=== PATIENT | female | born 1960 | race American Indian/Alaskan Native ===

== ENCOUNTER 2017-12-04 09:50 | Outpatient (CLI) | payer MEDICARE ==
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
== END 2017-12-04 09:51 | disposition home or self-care (01) ==
LOC: XRAY 09:50
PROVIDERS: ATTEND Family Medicine
DX: M17.11 Unilateral primary osteoarthritis, right knee (principal); M16.11 Unilateral primary osteoarthritis, right hip; V43.92XA Unspecified car occupant injured in collision with other type car in traffic accident, initial encounter; Y93.89 Activity, other specified; Y92.89 Other specified places as the place of occurrence of the external cause; Y99.8 Other external cause status

== ENCOUNTER 2020-08-21 19:41 | Emergency (ER) | payer MEDICARE ==
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
[2020-08-21 21:03] LABS: Hematocrit 40.2 % (30.3-42.9); Hemoglobin 13.6 gm/dl (10.1-14.3); Mean Corpuscular HGB Conc 34 % (30-34); Mean Corpuscular Volume 93 fl (79-97); Platelet Count 223 K/mm3 (140-440); Red Cell Distribution Width 16.5 % (13.2-15.2)
[2020-08-21 21:19] LABS: INR 1.2 (0.87-1.13); Partial Thromboplastin Time 35.5 Sec. (24.2-36.6)
[2020-08-21 21:23] LABS: Albumin 3.8 g/dL (3.9-5); Calcium 9.3 mg/dL (8.4-10.2)
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
--- NOTE | 2020-08-21 21:43 | XRay Report ---
CHEST 1 VIEW 08/21/2020 9:02 PM INDICATION / CLINICAL INFORMATION: sepsis. COMPARISON: Chest 2 views from 03/19/2016. FINDINGS: SUPPORT DEVICES: None. HEART / MEDIASTINUM: No significant abnormality. LUNGS / PLEURA: Low lung volumes with elevation of the right hemidiaphragm and bibasilar opacities. N o significant pleural effusion. No pneumothorax. ADDITIONAL FINDINGS: No significant additional findings. IMPRESSION: Low lung volumes with probable bibasilar atelectasis. Signer Name: Deondre Luis MD Signed: 08/21/2020 9:38 PM Workstation Name: [id number]
[2020-08-21 21:45] LABS: RBC Morphology Normal; Total Cells Counted 100
[2020-08-21] MEDS ORDERED: ONDANSETRON 4 MG ODT TAB PO ONE (22:37)
[2020-08-21] MEDS ORDERED: oxyCODONE /ACETAMINOPHEN 5-325MG TAB PO ONE (22:37)
[2020-08-21] MEDS ORDERED: IBUPROFEN 800 MG TAB PO ONE (23:15)
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
--- NOTE | 2020-08-21 23:26 | Cat Scan Report ---
CT head/brain wo con INDICATION: pain s/p fall. TECHNIQUE: All CT scans at this location are performed using the following dose modulation technique: Automated exposure control. CONTRAST: None. COMPARISON: None available. FINDINGS: The ventricular system is appropriate in size and configuration without midline shift. Nega tive for mass, stroke or hemorrhage. Image bones and paranasal sinuses are unremarkable. IMPRESSION: Negative CT brain without contrast. Signer Name: Bjorn Tee MD Signed: 08/21/2020 11:21 PM Workstation Name: [id number]
--- NOTE | 2020-08-21 23:48 | Cat Scan Report ---
CT neck w con HISTORY: left neck swelling COMPARISON: None. TECHNIQUE: CT of the neck is performed. All CT scans at this location are performed using CT dose red uction for ALARA by means of automated exposure control. FINDINGS: Contrast was administered, however there was extravasation and the patient did not to repeat contrast administration. Skull Base: No significant abnormality. Nasopharynx, oropharynx, hypopharynx: No significant abnormality. No mass identified.. Tonsils: Tonsils appear within normal limits. Airway: Patent and without significant abnormality. Salivary glands: Significant stranding seen within the neck which involves appears centered on the le ft parotid gland Significant stranding in the surrounding fat tissues which extends cranially along t he left temporal scalp and caudally beneath the platysma muscle. No stone is seen within the parotid duct. No organized fluid collection. Enlargement of the left sternocleidomastoid muscle and masseter due to underlying myositis. Thyroid:No significant abnormality. Lymphatics: Left level 2 and level 3 lymphadenopathy measuring up to 1.6 cm in short dimension Vasculature: Retroesophageal course of the subsequent internal carotid arteries. Osseous Structures: Multilevel moderate spondylosis. Additional findings: Patient is missing numerous T is no evidence for dental abscess. Mucosal retenti on cyst in the right maxillary sinus.. IMPRESSION: 1. Extensive inflammation involving the left neck which appears centered to the left parotid gland wh ich is thought to be most likely related to sialoadenitis. However, there is significant surrounding inflammation extending in the left scalp and inferiorly along the left aspect of the neck with left s ternocleidomastoid and masseter myositis. No abscess. No parotid duct stone is present. Correlate cli nically. 2. Associated level 2 and level 3 lymphadenopathy which is likely reactive. Recommend repeat CT scan with contrast if patient is not improving with medical therapy. Signer Name: Elbert Velazquez MD Signed: 08/21/2020 11:44 PM Workstation Name: [id number]
[2020-08-22] MEDS ORDERED: AMOXICILLIN/K CLAV 875/125MG TAB PO ONE (00:08)
[2020-08-22 01:19] VITALS: BP 169/102
== END 2020-08-22 01:20 | disposition home or self-care (01) ==
LOC: ED 19:41
DX: S70.02XA Contusion of left hip, initial encounter (principal); H60.92 Unspecified otitis externa, left ear; K11.21 Acute sialoadenitis; I16.0 Hypertensive urgency; Z90.49 Acquired absence of other specified parts of digestive tract; Z98.890 Other specified postprocedural states; Z79.1 Long term (current) use of non-steroidal anti-inflammatories (NSAID); Z79.2 Long term (current) use of antibiotics; Z79.899 Other long term (current) drug therapy; Z88.8 Allergy status to other drugs, medicaments and biological substances; W06.XXXA Fall from bed, initial encounter; Y93.89 Activity, other specified; Y92.89 Other specified places as the place of occurrence of the external cause; Y99.8 Other external cause status
CPT/HCPCS: 36415; 70450; 70491; 71045; 73502; 80053; 82140; 84484; 85007; 85025; 85610; 85730; 87040; 93005; 99285; Q9967; Q0162

== ENCOUNTER 2021-02-01 15:48 | Observation (INO) | payer MEDICARE ==
--- NOTE | 2021-02-01 18:49 | Event Note ---
ED Screening Note ED Screening Note: pt presents for fall that occurred earlier today she is c/o left hip pain she states her leg gave out but reports this occurs frequently she states that she is being evaluated for MS vs polyneuropathy she states she has also had BLE edema right greater than left for three days This initial assessment/diagnostic orders/clinical plan/treatment(s) is/are subject to change based on patients health status, clinical progression and re- assessment by fellow clinical providers in the ED. Further treatment and workup at subsequent clinical providers discretion. Patient/guardian urged not to elope from the ED as their condition may be serious if not clinically assessed and managed. Initial orders include: labs, xr, us
[2021-02-01 19:33] LABS: Basophils # (Auto) 0.1 K/mm3 (0.0-0.1); Basophils % (Auto) 0.5 % (0.0-1.8); Eosinophils # (Auto) 0.3 K/mm3 (0.0-0.4); Eosinophils % (Auto) 3.1 % (0.0-4.3); Hemoglobin 12.7 gm/dl (10.1-14.3); Lymphocytes # (Auto) 2.8 K/mm3 (1.2-5.4); Lymphocytes % (Auto) 25.1 % (13.4-35.0); Mean Corpuscular HGB Conc 33 % (30-34); Mean Corpuscular Volume 95 fl (79-97); Monocytes # (Auto) 0.9 K/mm3 (0.0-0.8); Monocytes % (Auto) 8.5 % (0.0-7.3); Platelet Count 251 K/mm3 (140-440); Red Blood Count 4.12 M/mm3 (3.65-5.03); Red Cell Distribution Width 15.4 % (13.2-15.2)
[2021-02-01 19:48] LABS: Albumin 3.4 g/dL (3.9-5); Calcium 9.6 mg/dL (8.4-10.2)
[2021-02-01 19:52] LABS: INR 1.13 (0.87-1.13)
--- NOTE | 2021-02-01 21:14 | Vascular Lab Report ---
DUPLEX DOPPLER LOWER EXTREMITY VEINS, BILATERAL INDICATION / CLINICAL INFORMATION: BLE edema, right greater than left TECHNIQUE: Duplex doppler imaging was performed through the veins of both lower extremities using neva ous compression and other maneuvers. COMPARISON: None available. FINDINGS: RIGHT COMMON FEMORAL VEIN: Negative. RIGHT FEMORAL VEIN: Negative. RIGHT POPLITEAL VEIN: Negative. RIGHT CALF VEINS: Negative. LEFT COMMON FEMORAL VEIN: Negative. LEFT FEMORAL VEIN: Negative. LEFT POPLITEAL VEIN: Negative. LEFT CALF VEINS: Negative. ADDITIONAL FINDINGS: None. IMPRESSION: No sonographic evidence for DVT in either lower extremity. Signer Name: Yasmani Dillon MD Signed: 02/01/2021 9:09 PM Workstation Name: [id number]
--- NOTE | 2021-02-01 21:45 | XRay Report ---
LEFT HIP 3 VIEW(S) INDICATION / CLINICAL INFORMATION: fall, left hip pain COMPARISON: None available. FINDINGS: BONES / JOINT(S): No acute fracture or subluxation. There is mild degeneration of the bilateral femor al acetabular joints. SOFT TISSUES: No significant abnormality. ADDITIONAL FINDINGS: Tubal ligation clips are noted within the pelvis. Signer Name: Raheem Cortez DO Signed: 02/01/2021 9:41 PM Workstation Name: [id number]
[2021-02-01] MEDS ORDERED: ONDANSETRON 4 MG/2 ML INJ IV ONE (21:47)
[2021-02-01] MEDS ORDERED: MORPHINE 4 MG/1 ML INJ IV ONE (21:47)
--- NOTE | 2021-02-01 21:51 | Emergency Department Report ---
ED General Adult HPI - General Chief complaint: Extremity Injury, Lower Stated complaint: L HIP PAIN Time Seen by Provider: 02/01/21 18:46 Source: patient Mode of arrival: Wheelchair Limitations: No Limitations - History of Present Illness Initial comments: 60-year-old female patient with history of hypertension, multiple sclerosis, and peripheral neuropathy presents to the emergency department with complaints of generalized weakness and left hip pain. Patient states she uses a walker at baseline and fell approximately 5 days ago while she was trying to use the bathroom. Patient states her right leg gave out on her, causing her to fall. Patient estimates she has fallen approximately 6 times in the last 30 days. States she is unable to bear weight on her left side. Patient is unable to discern whether she is having difficulty bearing weight because of the pain or because she is weak. Additionally, patient's lower extremities have been sw elling for the last week, and she has been experiencing diarrhea for approximately one month. Patient's primary care provider sent her to the emergency department for further evaluation. No known history of heart problems or kidney problems. No new medications. Denies headache, neck pain, syncope, seizure, chest pain, shortness of breath. Denies all other complaints at this time. - Related Data Previous Rx's Medication Instructions Recorded Last Taken Type Amoxicillin/Potassium Clav 1 each PO BID 10 Days #20 tablet 08/22/20 Unknown Rx [Augmentin 875-125 Tablet] Ciprofloxacin HCl/Dexameth 3 drop BID 7 Days #7.5 ml 08/22/20 Unknown Rx [Ciprodex Otic Suspension] Ibuprofen [Motrin 400 MG tab] 400 mg PO TID 5 Days #15 tablet 08/22/20 Unknown Rx oxyCODONE /ACETAMINOPHEN [Percocet 1 tab PO Q6H PRN #15 tab 08/22/20 Unknown Rx 5/325] Allergies Allergy/AdvReac Type Severity Reaction Status Date / Time hydrochlorothiazide Allergy Anaphylaxis Verified 02/01/21 16:55 ED Review of Systems ROS: Stated complaint: L HIP PAIN Other details as noted in HPI Other: GENERAL: Negative for fever, chills, weight change, anorexia, fatigue. ENT: Negative for ear pain, difficulty hearing, sore throat, nasal congestion, epistaxis. CARDIOVASCULAR: Positive for lower extremity swelling PULMONARY: Negative for cough, dyspnea, wheezing, orthopnea, cyanosis. GASTROINTESTINAL: Negative for abdominal pain, nausea, vomiting, diarrhea, constipation. MUSCULOSKELETAL: Positive for left hip pain. NEUROLOGICAL: Positive for generalized weakness. INTEGUMENTARY: Negative for erythema, rash, diaphoresis, laceration, ecchymosis. HEMATOLOGICAL: Negative for hemoptysis, hematemesis, hematochezia, hematuria. PSYCHIATRIC: Negative for hallucinations, suicidal ideation, homicidal ideation, anxiety, depression. ED Past Medical Hx - Past Medical History Hx Hypertension: Yes Additional medical history: Esophageal diverticulum. neuropathy and MS. 2L O2 at night - Surgical History Hx Cholecystectomy: Yes Additional Surgical History: esopagal dilation x5. hysterectomy. right knee. incarerated hernia - Social History Smoking Status: Never Smoker Substance Use Type: None - Medications Home Medications: Home Medications Medication Instructions Recorded Confirmed Last Taken Type Amoxicillin/Potassium Clav 1 each PO BID 10 Days #20 tablet 08/22/20 Unknown Rx [Augmentin 875-125 Tablet] Ciprofloxacin HCl/Dexameth 3 drop BID 7 Days #7.5 ml 08/22/20 Unknown Rx [Ciprodex Otic Suspension] Ibuprofen [Motrin 400 MG tab] 400 mg PO TID 5 Days #15 tablet 08/22/20 Unknown Rx oxyCODONE /ACETAMINOPHEN [Percocet 1 tab PO Q6H PRN #15 tab 08/22/20 Unknown Rx 5/325] ED Physical Exam - General Limitations: No Limitations - Other Other exam information: General: Awake and alert. No acute distress. Head: Atraumatic, normocephalic. Eyes: EOMI. Pupils are equal and round, reactive to light, no nystagmus. Normal sclera and conjunctiva. ENT: Oral mucosa is moist. Normal pharyngeal exam. Neck: Supple. No lymphadenopathy. Pulmonary: No respiratory distress. Clear to auscultation bilaterally. Cardiac: Regular rate and rhythm. Pulses are palpable and equal bilaterally. Bilateral nonpitting lower extremity edema. Skin: Warm and dry. No rashes. Abdomen: Soft, non-tender, non-protuberant. No guarding, rigidity, or rebound. Bowel sounds are normal. No organomegaly or masses noted. Back: Normal alignment. No CVA tenderness. Extremities: Tenderness to palpation throughout the left hip without obvious deformity or dislocation. Painful range of motion. No rotational shortening/deformity or leg length discrepancy. Neurological: Alert and oriented, appropriately interactive, no focal deficits. Strength and sensation intact throughout. Psych: Cooperative. Appropriate mood and affect. Speech is evenly metered. Thoughts are logically construed. ED Course Vital Signs 02/01/21 17:03 Temperature 99.2 F Pulse Rate 97 H Respiratory 16 Rate Blood Pressure 154/88 [Right] O2 Sat by Pulse 89 Oximetry ED Medical Decision Making - Lab Data Result diagrams: 02/01/21 19:06 02/01/21 19:06 - EKG Data 02/01/21 22:30 EKG shows sinus tachycardia with a ventricular rate of 104 bpm. Left axis deviation. Normal SC interval. Normal QT interval. Poor R wave progression. No ST segment changes. Unchanged as compared with prior tracing in August 2020. Over read by attending emergency physician, who agrees with this interpretation. 02/01/21 22:32 - Medical Decision Making Differential diagnosis including but not limited to: sprain, strain, fracture, contusion, dislocation, dehydration, electrolyte abnormality, congestive heart failure, cardiac arrhythmia, pulmonary hypertension 23:20: On re-evaluation, patient remains stable. Urinalysis shows budding yeast; given one-time dose of Diflucan. Labs significant for acute kidney injury as compared with prior labs earlier this year. In the setting of mild tachycardia, hyponatremia, generalized weakness, and ongoing diarrhea, suspect patient's ROSSI is due to pre-renal causes. Given 500 mL IV fluids @ 150 per hour. Will monitor patient's response to fluids before administering remainder of fluid bolus due to patient's recent onset of peripheral edema. Chest x-ray is pending. EKG without acute injury pattern. BNP within normal limits. Patient will require hospital admission for management of her kidney/electrolytes and further evaluation of ongoing weakness/falls. 23:25: Paged hospitalist for admission. 23:39: Case discussed with hospitalist, who agrees to admit. Patient expressed understanding and is agreeable to plan of care. Critical care attestation.: If time is entered above; I have spent that time in minutes in the direct care of this critically ill patient, excluding procedure time. ED Disposition Clinical Impression: Acute kidney injury, Generalized weakness, Frequent falls, History of multiple sclerosis Disposition: ADMITTED INPATIENT Is pt being admited?: Yes Does the pt Need Aspirin: No Condition: Stable Time of Disposition: 23:39
[2021-02-01 23:12] LABS: Bacteria,Urine 2+ /HPF (Negative); Bilirubin,Urine NEG (Negative); Blood,Urine NEG (Negative); Color,Urine Yellow (Yellow); Mucus,Urine FEW /HPF; Urobilinogen,Urine < 2.0 mg/dL (<2.0)
[2021-02-01] MEDS ORDERED: FLUCONAZOLE 100 MG TAB PO ONE (23:24)
[2021-02-01] MEDS ORDERED: FLUCONAZOLE 200 MG TAB PO ONE (23:30)
[2021-02-01] MEDS ORDERED: SODIUM CHLORIDE 0.9% 1000 ML 1,000 ML IV SCH (23:45)
[2021-02-01] MEDS ORDERED: SODIUM CHLORIDE 0.9% 500 ML 500 ML IV SCH (23:45)
[2021-02-01] MEDS ORDERED: ACETAMINOPHEN 325 MG TAB PO PRN (23:56)
[2021-02-01] MEDS ORDERED: MAGNESIUM HYDROXIDE (MOM) ORAL LIQD UDC PO PRN (23:56)
[2021-02-01] MEDS ORDERED: ONDANSETRON 4 MG/2 ML INJ IV PRN (23:56)
[2021-02-01] MEDS ORDERED: MORPHINE 2 MG/1 ML INJ IV PRN (23:56)
[2021-02-01] MEDS ORDERED: MORPHINE 4 MG/1 ML INJ IV PRN (23:56)
--- NOTE | 2021-02-02 00:09 | History and Physical Report ---
History of Present Illness Date of examination: 02/01/21 Date of admission: 02/01/2021 Chief complaint: Diarrhea Generalized weakness Frequent falls History of present illness: 60-year-old female with known history of hypertension, peripheral neuropathy and multiple sclerosis presents to the emergency room today complaining of left hip pain and generalized weakness. Patient states that she fell about 5 days ago while she was trying to use the bathroom. She normally ambulates with a walker but indicates states that her right leg give out on her. She denies any head injury, denies any loss of consciousness. However patient indicates that she has been having frequent falls lately. Patient denies any fever or chills, no chest pain or shortness of breath, no nausea or vomiting and no abdominal pain. She has been having diarrhea for about a month but denies any bright red blood per rectum. She denies using any new medications. Her last intake of antibio tics was about 5 months ago. Work-up in the emergency room today reveals a BUN/creatinine of 47 and 2.1 respectively, sodium level of 133. Past History Past Medical History: hypertension, other (Esophageal diverticulum. neuropathy and MS. 2L O2 at night) Past Surgical History: Other ( esopagal dilation x5. hysterectomy. right knee. incarerated hernia) Social history: no significant social history Family history: no significant family history Medications and Allergies Allergies Allergy/AdvReac Type Severity Reaction Status Date / Time hydrochlorothiazide Allergy Anaphylaxis Verified 02/01/21 16:55 Home Medications Medication Instructions Recorded Confirmed Last Taken Type Amoxicillin/Potassium Clav 1 each PO BID 10 Days #20 tablet 08/22/20 Unknown Rx [Augmentin 875-125 Tablet] Ciprofloxacin HCl/Dexameth 3 drop BID 7 Days #7.5 ml 08/22/20 Unknown Rx [Ciprodex Otic Suspension] Ibuprofen [Motrin 400 MG tab] 400 mg PO TID 5 Days #15 tablet 08/22/20 Unknown Rx oxyCODONE /ACETAMINOPHEN [Percocet 1 tab PO Q6H PRN #15 tab 08/22/20 Unknown Rx 5/325] Active Meds: Active Medications Acetaminophen (Acetaminophen 325 Mg Tab) 650 mg PO Q4H PRN PRN Reason: Pain MILD(1-3)/Fever >100.5/ALEMAN Sodium Chloride (Nacl 0.9% 500 Ml) 500 mls @ 150 mls/hr IV DIRECT MARY Sodium Chloride (Nacl 0.9% 1000 Ml) 1,000 mls @ 75 mls/hr IV DIRECT MARY Magnesium Hydroxide (Magnesium Hydroxide (Mom) Oral Liqd Udc) 30 ml PO Q4H PRN PRN Reason: Constipation Morphine Sulfate (Morphine 2 Mg/1 Ml Inj) 2 mg IV Q4H PRN PRN Reason: Pain, Moderate (4-6) Morphine Sulfate (Morphine 4 Mg/1 Ml Inj) 4 mg IV Q4H PRN PRN Reason: Pain , Severe (7-10) Ondansetron HCl (Ondansetron 4 Mg/2 Ml Inj) 4 mg IV Q8H PRN PRN Reason: Nausea And Vomiting Sodium Chloride (Sodium Chloride 0.9% 10 Ml Flush Syringe) 10 ml IV BID MARY Sodium Chloride (Sodium Chloride 0.9% 10 Ml Flush Syringe) 10 ml IV PRN PRN PRN Reason: LINE FLUSH Review of Systems Constitutional: weakness, no fever, no chills Ears, nose, mouth and throat: no nasal congestion, no sore throat Cardiovascular: no chest pain, no palpitations Respiratory: no cough, no shortness of breath Gastrointestinal: abdominal pain (Mild abdominal discomfort), diarrhea, no nausea, no vomiting, no hematemesis Genitourinary Female: no pelvic pain, no flank pain, no dysuria, no hematuria Musculoskeletal: no neck pain, no low back pain Integumentary: no rash, no pruritis Neurological: weakness, balance difficulties, no seizures, no headaches, no confusion Psychiatric: no anxiety, no depression, no confusion Endocrine: no polyphagia, no polydipsia, no polyuria, no nocturia Exam - Constitutional Vitals: Temp Pulse Resp BP Pulse Ox 99.2 F 97 H 16 154/88 89 02/01/21 17:03 02/01/21 17:03 02/01/21 17:03 02/01/21 17:03 02/01/21 17:03 General appearance: Present: no acute distress, well-nourished, obese - EENT Eyes: Present: PERRL, EOM intact. Absent: scleral icterus ENT: hearing intact, clear oral mucosa, dentition normal - Neck Neck: Present: supple, normal ROM - Respiratory Respiratory effort: normal Respiratory: bilateral: CTA - Cardiovascular Rhythm: regular Heart Sounds: Present: S1 & S2. Absent: gallop, systolic murmur, diastolic murmur, rub - Extremities Extremities: no ischemia, pulses intact, pulses symmetrical, No edema, normal temperature, normal color, Full ROM Peripheral Pulses: within normal limits - Abdominal General gastrointestinal: Present: soft, non-tender, non-distended, normal bowel sounds. Absent: mass - Integumentary Integumentary: Present: clear, warm, dry. Absent: rash - Musculoskeletal Musculoskeletal: strength equal bilaterally - Psychiatric Psychiatric: appropriate mood/affect, intact judgment & insight, memory intact, cooperative - Neurologic Neurologic: CNII-XII intact, no focal deficits, moves all extremities Results - Labs CBC & Chem 7: 02/02/21 06:39 02/01/21 19:06 Labs: Abnormal lab results 02/01/21 02/01/21 02/01/21 Range/Units 19:06 19:06 19:06 RDW 15.4 H (13.2-15.2) % [place] % (Auto) 8.5 H (0.0-7.3) % [place] # (Auto) 0.9 H (0.0-0.8) K/mm3 PT 15.1 H (12.2-14.9) Sec. Sodium 133 L (137-145) mmol/L Chloride 97.3 L (98-107) mmol/L BUN 47 H (7-17) mg/dL Creatinine 2.1 H (0.6-1.2) mg/dL AST 71 H (5-40) units/L Total Protein 8.3 H (6.3-8.2) g/dL Albumin 3.4 L (3.9-5) g/dL Assessment and Plan - Patient Problems (1) Acute kidney injury Current Visit: Yes Status: Acute Plan to address problem: Possibly secondary to volume loss for the diarrhea. Patient commenced on IV fluid. We will monitor BUN and creatinine. Consult placed to barrel maker for evaluation. (2) Frequent falls Current Visit: Yes Status: Acute Plan to address problem: Patient has known history of multiple sclerosis and peripheral neuropathy. Patient will be placed on fall precautions. (3) Generalized weakness Current Visit: Yes Status: Acute Plan to address problem: Etiology is unclear. Possibly secondary to the diarrhea. (4) History of multiple sclerosis Current Visit: Yes Status: Acute Plan to address problem: Continue on routine medications and place consult to neurology for further evaluation and recommendation. (5) DVT prophylaxis Current Visit: Yes Status: Acute Plan to address problem: Patient placed on subcutaneous heparin. (6) Full code status Current Visit: Yes Status: Acute Plan to address problem: Patient is full code.
--- NOTE | 2021-02-02 00:15 | XRay Report ---
CHEST 1 VIEW 02/01/2021 10:57 PM INDICATION / CLINICAL INFORMATION: tachycardia/lower extremity swelling. COMPARISON: 08/21/2020 FINDINGS: SUPPORT DEVICES: None. HEART / MEDIASTINUM: No significant abnormality. LUNGS / PLEURA: Marked chronic elevation right hemidiaphragm. No significant pulmonary or pleural abn ormality. No pneumothorax. ADDITIONAL FINDINGS: No significant additional findings. IMPRESSION: 1. No acute findings. Signer Name: Ladarius Peoples MD Signed: 02/02/2021 12:11 AM Workstation Name: [id number]
[2021-02-02 07:03] LABS: Basophils # (Auto) 0.1 K/mm3 (0.0-0.1); Basophils % (Auto) 0.6 % (0.0-1.8); Eosinophils # (Auto) 0.4 K/mm3 (0.0-0.4); Eosinophils % (Auto) 4.8 % (0.0-4.3); Hematocrit 34.9 % (30.3-42.9); Hemoglobin 11.6 gm/dl (10.1-14.3); Lymphocytes # (Auto) 1.8 K/mm3 (1.2-5.4); Lymphocytes % (Auto) 19.4 % (13.4-35.0); Mean Corpuscular HGB Conc 33 % (30-34); Mean Corpuscular Volume 93 fl (79-97); Monocytes # (Auto) 0.9 K/mm3 (0.0-0.8); Monocytes % (Auto) 10.1 % (0.0-7.3); Platelet Count 265 K/mm3 (140-440); Red Blood Count 3.76 M/mm3 (3.65-5.03); Red Cell Distribution Width 15.2 % (13.2-15.2)
[2021-02-02 07:13] LABS: INR 1.1 (0.87-1.13)
[2021-02-02 07:27] LABS: Calcium 9.3 mg/dL (8.4-10.2)
--- NOTE | 2021-02-02 09:03 | Consultation ---
History of Present Illness Consult date: 02/02/21 Reason for Consult: Gaeneralized weakness ,increase fall and right leg weakness ,Hx of MS History of present illness: Diarrhea Generalized weakness Frequent falls History of present illness: 60-year-old female with known history of hypertension, peripheral neuropathy and multiple sclerosis presents to the emergency room today complaining of left hip pain and generalized weakness. Patient states that she fell about 5 days ago while she was trying to use the bathroom. She normally ambulates with a walker but indicates states that her right leg give out on her. She denies any head injury, denies any loss of consciousness. However patient indicates that she has been having frequent falls lately. Patient denies any fever or chills, no chest pain or shortness of breath, no nausea or vomiting and no abdominal pain. She has been having diarrhea for about a month but denies any bright red blood per rectum. She denies using any new medications. Her last intake of antibiotics was about 5 months ago. Work-up in the emergency room today reveals a BUN/creatinine of 47 and 2.1 respectively, sodium level of 133. pt. is complaining of left hip pain as well as back pain radiate to left hip . according to her pain started only 5 days ago after the fall she is with hx of MX presented in 2008 as muscles cramp in legs and visual disturbance ? according to her she is treated with muscles relaxant ?? Past History Past Medical History: hypertension, other (Esophageal diverticulum. neuropathy and MS. 2L O2 at night) Past Surgical History: Other ( esopagal dilation x5. hysterectomy. right knee. incarerated hernia) Social history: no significant social history Family history: no significant family history Medications and Allergies Allergies Allergy/AdvReac Type Severity Reaction Status Date / Time hydrochlorothiazide Allergy Anaphylaxis Verified 02/01/21 16:55 Home Medications Medication Instructions Recorded Confirmed Last Taken Type Amoxicillin/Potassium Clav 1 each PO BID 10 Days #20 tablet 08/22/20 Unknown Rx [Augmentin 875-125 Tablet] Ciprofloxacin HCl/Dexameth 3 drop BID 7 Days #7.5 ml 08/22/20 Unknown Rx [Ciprodex Otic Suspension] Ibuprofen [Motrin 400 MG tab] 400 mg PO TID 5 Days #15 tablet 08/22/20 Unknown Rx oxyCODONE /ACETAMINOPHEN [Percocet 1 tab PO Q6H PRN #15 tab 08/22/20 Unknown Rx 5325] Active Meds: Active Medications Acetaminophen (Acetaminophen 325 Mg Tab) 650 mg PO Q4H PRN PRN Reason: Pain MILD(1-3)/Fever >100.5/ALEMAN Sodium Chloride (Nacl 0.9% 500 Ml) 500 mls @ 150 mls/hr IV DIRECT MARY Sodium Chloride (Nacl 0.9% 1000 Ml) 1,000 mls @ 75 mls/hr IV DIRECT MARY Magnesium Hydroxide (Magnesium Hydroxide (Mom) Oral Liqd Udc) 30 ml PO Q4H PRN PRN Reason: Constipation Morphine Sulfate (Morphine 2 Mg/1 Ml Inj) 2 mg IV Q4H PRN PRN Reason: Pain, Moderate (4-6) Morphine Sulfate (Morphine 4 Mg/1 Ml Inj) 4 mg IV Q4H PRN PRN Reason: Pain , Severe (7-10) Ondansetron HCl (Ondansetron 4 Mg/2 Ml Inj) 4 mg IV Q8H PRN PRN Reason: Nausea And Vomiting Sodium Chloride (Sodium Chloride 0.9% 10 Ml Flush Syringe) 10 ml IV BID MARY Sodium Chloride (Sodium Chloride 0.9% 10 Ml Flush Syringe) 10 ml IV PRN PRN PRN Reason: LINE FLUSH Review of Systems Constitutional: weakness, no fever, no chills Ears, nose, mouth and throat: no nasal congestion, no sore throat Cardiovascular: no chest pain, no palpitations Respiratory: no cough, no shortness of breath Gastrointestinal: abdominal pain (Mild abdominal discomfort), diarrhea, no nausea, no vomiting, no hematemesis Genitourinary Female: no pelvic pain, no flank pain, no dysuria, no hematuria Musculoskeletal: no neck pain, no low back pain Integumentary: no rash, no pruritis Neurological: weakness, balance difficulties, no seizures, no headaches, no confusion Psychiatric: no anxiety, no depression, no confusion Endocrine: no polyphagia, no polydipsia, no polyuria, no nocturia Past History Past Medical History: hypertension, other (Esophageal diverticulum. neuropathy and MS. 2L O2 at night) Past Surgical History: Other ( esopagal dilation x5. hysterectomy. right knee. incarerated hernia) Social history: no significant social history Family history: no significant family history Medications and Allergies Allergies Allergy/AdvReac Type Severity Reaction Status Date / Time hydrochlorothiazide Allergy Anaphylaxis Verified 02/01/21 16:55 Home Medications Medication Instructions Recorded Confirmed Last Taken Type Amoxicillin/Potassium Clav 1 each PO BID 10 Days #20 tablet 08/22/20 Unknown Rx [Augmentin 875-125 Tablet] Ciprofloxacin HCl/Dexameth 3 drop BID 7 Days #7.5 ml 08/22/20 Unknown Rx [Ciprodex Otic Suspension] Ibuprofen [Motrin 400 MG tab] 400 mg PO TID 5 Days #15 tablet 08/22/20 Unknown Rx oxyCODONE /ACETAMINOPHEN [Percocet 1 tab PO Q6H PRN #15 tab 08/22/20 Unknown Rx 5/325] Active Meds: Active Medications Acetaminophen (Acetaminophen 325 Mg Tab) 650 mg PO Q4H PRN PRN Reason: Pain MILD(1-3)/Fever >100.5/ALEMAN Sodium Chloride (Nacl 0.9% 1000 Ml) 1,000 mls @ 75 mls/hr IV DIRECT MARY Magnesium Hydroxide (Magnesium Hydroxide (Mom) Oral Liqd Udc) 30 ml PO Q4H PRN PRN Reason: Constipation Morphine Sulfate (Morphine 2 Mg/1 Ml Inj) 2 mg IV Q4H PRN PRN Reason: Pain, Moderate (4-6) Last Admin: 02/02/21 02:56 Dose: 2 mg Documented by: Morphine Sulfate (Morphine 4 Mg/1 Ml Inj) 4 mg IV Q4H PRN PRN Reason: Pain , Severe (7-10) Ondansetron HCl (Ondansetron 4 Mg/2 Ml Inj) 4 mg IV Q8H PRN PRN Reason: Nausea And Vomiting Sodium Chloride (Sodium Chloride 0.9% 10 Ml Flush Syringe) 10 ml IV BID MARY Sodium Chloride (Sodium Chloride 0.9% 10 Ml Flush Syringe) 10 ml IV PRN PRN PRN Reason: LINE FLUSH Physical Examination - Vital Signs Vital Signs: Vital Signs Temp Pulse Resp BP Pulse Ox 99.2 F 97 H 16 154/88 89 02/01/21 17:03 02/01/21 17:03 02/01/21 17:03 02/01/21 17:03 02/01/21 17:03 - Constitutional General appearance: uncomfortable - EENT EENT: Present: PERRL, mucous membranes moist - Respiratory Respiratory: Present: chest non-tender, lungs clear, rhonchi - Cardiovascular Cardiovascular: Present: regular rate, normal S1, normal S2 Extremities: Present: non-pitting edema - Gastrointestinal Gastrointestinal: Present: normoactive bowel sounds - Integumentary Integumentary: Present: normal - Neurologic Cranial nerve examination: PERRL, EOMI, intact Speech examination: intact Sensorimotor examination: other (she is with left side weakness upper and lowe with strngth is 4-/5 , planter is down going , localized tenderness in both hip with slight limited movment ,sensory is impaired to pin and position in both feet and lag up to knees,gait is not done, reflexes are suppressed bilteral) Results - Laboratory Findings CBC and BMP: 02/02/21 06:39 02/02/21 06:39 Abnormal Lab Findings: Abnormal Labs 02/01/21 02/01/21 02/01/21 19:06 19:06 19:06 RDW 15.4 H [place] % (Auto) 8.5 H Eos % (Auto) [place] # (Auto) 0.9 H PT 15.1 H Sodium 133 L Potassium Chloride 97.3 L BUN 47 H Creatinine 2.1 H AST 71 H Total Protein 8.3 H Albumin 3.4 L 02/02/21 02/02/21 06:39 06:39 RDW [place] % (Auto) 10.1 H Eos % (Auto) 4.8 H [place] # (Auto) 0.9 H PT Sodium Potassium 5.3 H Chloride BUN 41 H Creatinine 1.7 H AST Total Protein Albumin Assessment and Plan Assessment and Plan # this is 60 ys old femal prsented with incres fall at home X 5 days -she is with localized tenderness in hip L>R -more pronounced weakness left >R side upper and lower -- no cranial nerves involvment --R/O cervical radiculopathy but supra tentorial etiology can not be excluded -Xry hips is unremarkable # Frequent falls -Patient has known history of multiple sclerosis and peripheral neuropathy. -Patient will be placed on fall precautions. -she use walker at home # Generalized weakness -Etiology is unclear. Possibly secondary to the diarrhea. # History of multiple sclerosis - Diagnosesd in 2008 on no medications ? -Continue on routine medications -suggest MRI brain and spine with gd ? # Acute kidney injury -Possibly secondary to volume loss for the diarrhea. -Patient commenced on IV fluid. We will monitor BUN and creatinine. # DVT prophylaxis -Patient placed on subcutaneous heparin. # Full code status -Patient is full code. PLAN 1- MRI brain ,Cervical ,dorsal and lumber with gd 2- Pt therapy 3- home medications 4-try to lose weight 5- ESR,JIMBO,B12,TSH . will follow
--- NOTE | 2021-02-02 09:59 | Consultation ---
History of Present Illness - Reason for Consult Consult date: 02/02/21 acute renal failure, hyperkalemia - History of Present Illness The patient is a 60 YO female with history significant for Obesity, Hypertension, peripheral neuropathy, multiple sclerosis, decreased mobility and mild CKD who presented to [facility] ED 02/01 with c/o left hip pain and generalized weakness. Patient states that she fell about 5 days ago while she was trying to use the bathroom. She normally ambulates with a walker but indicates states that her right leg give out on her. She denies any head injury or LOC. However patient indicates that she has been having frequent falls lately. Patient admits weight loss and diarrhea. She denies any fever, chills, chest pain, shortness of breath, nausea, vomiting and abdominal pain. Her last intake of antibiotics was about 5 months ago. Work-up in the emergency room revealed BUN/creatinine of 47 and 2.1 respectively and Sodium level of 133. Nephrology was consulted for further evaluation and treatment of ROSSI. Past History Past Medical History: hypertension, other (Esophageal diverticulum. neuropathy and MS. 2L O2 at night) Past Surgical History: Other ( esopagal dilation x5. hysterectomy. right knee. incarerated hernia) Social history: no significant social history Family history: no significant family history Medications and Allergies Allergies Allergy/AdvReac Type Severity Reaction Status Date / Time hydrochlorothiazide Allergy Anaphylaxis Verified 02/01/21 16:55 Home Medications Medication Instructions Recorded Confirmed Last Taken Type Amoxicillin/Potassium Clav 1 each PO BID 10 Days #20 tablet 08/22/20 Unknown Rx [Augmentin 875-125 Tablet] Ciprofloxacin HCl/Dexameth 3 drop BID 7 Days #7.5 ml 08/22/20 Unknown Rx [Ciprodex Otic Suspension] Ibuprofen [Motrin 400 MG tab] 400 mg PO TID 5 Days #15 tablet 08/22/20 Unknown Rx oxyCODONE /ACETAMINOPHEN [Percocet 1 tab PO Q6H PRN #15 tab 08/22/20 Unknown Rx 5/325] Active Meds: Active Medications Acetaminophen (Acetaminophen 325 Mg Tab) 650 mg PO Q4H PRN PRN Reason: Pain MILD(1-3)/Fever >100.5/ALEMAN Sodium Chloride (Nacl 0.9% 1000 Ml) 1,000 mls @ 75 mls/hr IV DIRECT MARY Magnesium Hydroxide (Magnesium Hydroxide (Mom) Oral Liqd Udc) 30 ml PO Q4H PRN PRN Reason: Constipation Morphine Sulfate (Morphine 2 Mg/1 Ml Inj) 2 mg IV Q4H PRN PRN Reason: Pain, Moderate (4-6) Last Admin: 02/02/21 02:56 Dose: 2 mg Documented by: Morphine Sulfate (Morphine 4 Mg/1 Ml Inj) 4 mg IV Q4H PRN PRN Reason: Pain , Severe (7-10) Ondansetron HCl (Ondansetron 4 Mg/2 Ml Inj) 4 mg IV Q8H PRN PRN Reason: Nausea And Vomiting Sodium Chloride (Sodium Chloride 0.9% 10 Ml Flush Syringe) 10 ml IV BID MARY Last Admin: 02/02/21 09:59 Dose: 10 ml Documented by: Sodium Chloride (Sodium Chloride 0.9% 10 Ml Flush Syringe) 10 ml IV PRN PRN PRN Reason: LINE FLUSH Review of Systems Constitutional: weight loss, anorexia, fatigue, poor appetite, no weight gain, no fever, no chills, no weakness Breasts: deferred Cardiovascular: edema, high blood pressure, leg edema, no chest pain, no orthopnea, no syncope, no lightheadedness, no shortness of breath Respiratory: no cough, no hemoptysis, no shortness of breath Gastrointestinal: diarrhea, no abdominal pain, no nausea, no vomiting, no melena Integumentary: no rash Neurological: no seizures, no syncope, no convulsions, no aphasia, no change in speech, no change in mentation, no confusion Exam - Vital Signs Vital signs: Vital Signs Temp Pulse Resp BP Pulse Ox 99.2 F 97 H 16 154/88 89 02/01/21 17:03 02/01/21 17:03 02/01/21 17:03 02/01/21 17:03 02/01/21 17:03 Results - Lab Results 02/02/21 06:39 02/02/21 06:39 Most recent lab results Calcium 9.3 mg/dL (8.4-10.2) 02/02/21 06:39 Assessment and Plan 1. Acute kidney injury: Vasomotor ROSSI in the setting of volume depletion. Urine studies and Renal US ordered. Continue IV fluids. Monitor renal function. Creatinine level is slightly better. Avoid nephrotoxic agents. Meds dosage based on GFR. 2. FEN: Mild Hyperkalemia, kayexalate ordered, monitor. Monitor lytes and volume status. 3. Frequent falls, POA: Patient has known history of multiple sclerosis and peripheral neuropathy. Fall precautions. 4. Generalized weakness: Etiology is unclear. Followed by Neuro. Monitor. 5. History of multiple sclerosis: Seen by Neurology. Subjective: Patient was examined at the bedside. Examination: General appearance: well-developed, appears stated age, obese HEENT: ATNC Neck: Trachea midline Respiratory: ctab Cardiology: S1S2, no murmur Gastrointestinal: soft, obese, bowel sounds heard, not tender Integumentary: no obvious rash Neurologic: AO, able to move extremities Ext: trace LE edema
[2021-02-02] MEDS ORDERED: SODIUM POLYSTYRENE 15 GM/60 ML ORAL LIQD PO NR (10:54)
[2021-02-02] MEDS ORDERED: LORazepam 2 MG/ML VIAL IV NR (14:45)
--- NOTE | 2021-02-02 14:46 | Progress Note ---
Assessment and Plan Assessment and plan: --Frequent falls Current Visit: Yes Status: Acute Plan to address problem: Patient has known history of multiple sclerosis and peripheral neuropathy. Patient will be placed on fall precautions. --Generalized weakness Current Visit: Yes Status: Acute Plan to address problem: Etiology is unclear. Possibly secondary to the diarrhea. --History of multiple sclerosis Current Visit: Yes Status: Acute Plan to address problem: Continue current medications neurology consulted Neuro work-up is in progress -- Acute kidney injury Current Visit: Yes Status: Acute Possibly secondary to volume loss from diarrhea/vasomotor nephropathy Patient commenced on IV fluid. We will monitor BUN and creatinine. Nephrology following, creatinine trending down Avoid nephrotoxins --Mild hyperkalemia; Current Visit: Yes Status: Acute No need to correct. Monitor electrolytes --DVT prophylaxis Current Visit: Yes Status: Acute Plan to address problem: Patient placed on subcutaneous heparin. -- Full code status Current Visit: Yes Status: Acute Plan to address problem: Patient is full code. Closely monitor the patient and adjust management as needed Plan of care reviewed with the patient and her nurse Follow neuro evaluation and recommendations Follow multiple neuro imaging studies and the reports 02/02/2021; Patient with multiple sclerosis, history of recurrent falls Neurology evaluated, extensive neuro work-up is in progress Physical therapy occupational therapy History Interval history: I have seen and examined the patient at the bedside Patient's chart and medications reviewed Patient with multiple sclerosis admitted with recurrent falls and hip pain Neurology evaluated the patient Neuro work-up is in progress Vital signs reviewed Hospitalist Physical - Constitutional Vitals: Temp Pulse Resp BP Pulse Ox 99.2 F 97 H 16 131/78 97 02/01/21 17:03 02/01/21 17:03 02/01/21 17:03 02/02/21 09:00 02/02/21 09:00 General appearance: Present: no acute distress, well-nourished, obese - EENT Eyes: Present: PERRL, EOM intact - Neck Neck: Present: supple, normal ROM - Respiratory Respiratory effort: normal Respiratory: bilateral: diminished, negative: rales, rhonchi, wheezing - Cardiovascular Rhythm: regular Heart Sounds: Present: S1 & S2 - Extremities Extremities: no ischemia, No edema - Abdominal General gastrointestinal: soft, non-tender, non-distended, normal bowel sounds - Integumentary Integumentary: Present: clear, warm - Psychiatric Psychiatric: appropriate mood/affect, cooperative - Neurologic Neurologic: moves all extremities (Residual weakness) Results - Labs CBC & Chem 7: 02/02/21 06:39 02/02/21 06:39 Labs: Laboratory Last Values WBC 9.3 K/mm3 (4.5-11.0) 02/02/21 06:39 RBC 3.76 M/mm3 (3.65-5.03) 02/02/21 06:39 Hgb 11.6 gm/dl (10.1-14.3) 02/02/21 06:39 Hct 34.9 % (30.3-42.9) 02/02/21 06:39 MCV 93 fl (79-97) 02/02/21 06:39 MCH 31 pg (28-32) 02/02/21 06:39 MCHC 33 % (30-34) 02/02/21 06:39 RDW 15.2 % (13.2-15.2) 02/02/21 06:39 Plt Count 265 K/mm3 (140-440) 02/02/21 06:39 Lymph % (Auto) 19.4 % (13.4-35.0) 02/02/21 06:39 [place] % (Auto) 10.1 % (0.0-7.3) H 02/02/21 06:39 Eos % (Auto) 4.8 % (0.0-4.3) H 02/02/21 06:39 Baso % (Auto) 0.6 % (0.0-1.8) 02/02/21 06:39 Lymph # (Auto) 1.8 K/mm3 (1.2-5.4) 02/02/21 06:39 [place] # (Auto) 0.9 K/mm3 (0.0-0.8) H 02/02/21 06:39 Eos # (Auto) 0.4 K/mm3 (0.0-0.4) 02/02/21 06:39 Baso # (Auto) 0.1 K/mm3 (0.0-0.1) 02/02/21 06:39 Seg Neutrophils % 65.1 % (40.0-70.0) 02/02/21 06:39 Seg Neutrophils # 6.1 K/mm3 (1.8-7.7) 02/02/21 06:39 PT 14.8 Sec. (12.2-14.9) 02/02/21 06:39 INR 1.10 (0.87-1.13) 02/02/21 06:39 APTT 32.0 Sec. (24.2-36.6) 02/01/21 19:06 Sodium 140 mmol/L (137-145) D 02/02/21 06:39 Potassium 5.3 mmol/L (3.6-5.0) H 02/02/21 06:39 Chloride 102.4 mmol/L (98-107) 02/02/21 06:39 Carbon Dioxide 27 mmol/L (22-30) 02/02/21 06:39 Anion Gap 16 mmol/L 02/02/21 06:39 BUN 41 mg/dL (7-17) H 02/02/21 06:39 Creatinine 1.7 mg/dL (0.6-1.2) H 02/02/21 06:39 Estimated GFR 37 ml/min 02/02/21 06:39 BUN/Creatinine Ratio 24 % 02/02/21 06:39 Glucose 94 mg/dL (65-100) 02/02/21 06:39 Calcium 9.3 mg/dL (8.4-10.2) 02/02/21 06:39 Total Bilirubin 0.50 mg/dL (0.1-1.2) 02/01/21 19:06 AST 71 units/L (5-40) H 02/01/21 19:06 ALT 42 units/L (7-56) 02/01/21 19:06 Alkaline Phosphatase 75 units/L (35-129) 02/01/21 19:06 NT-Pro-B Natriuret Pep 41.66 pg/mL (0-900) 02/01/21 19:06 Total Protein 8.3 g/dL (6.3-8.2) H 02/01/21 19:06 Albumin 3.4 g/dL (3.9-5) L 02/01/21 19:06 Albumin/Globulin Ratio 0.7 % 02/01/21 19:06 Urine Color Yellow (Yellow) 02/01/21 22:45 Urine Turbidity Cloudy (Clear) 02/01/21 22:45 Urine pH 5.0 (5.0-7.0) 02/01/21 22:45 Ur Specific [place] 1.016 (1.003-1.030) 02/01/21 22:45 Urine Protein 30 mg/dl mg/dL (Negative) 02/01/21 22:45 Urine Glucose (UA) Neg mg/dL (Negative) 02/01/21 22:45 Urine Ketones Neg mg/dL (Negative) 02/01/21 22:45 Urine Blood Neg (Negative) 02/01/21 22:45 Urine Nitrite Neg (Negative) 02/01/21 22:45 Urine Bilirubin Neg (Negative) 02/01/21 22:45 Urine Urobilinogen < 2.0 mg/dL (<2.0) 02/01/21 22:45 Ur Leukocyte Esterase Tr (Negative) 02/01/21 22:45 Urine WBC (Auto) 6.0 /HPF (0.0-6.0) 02/01/21 22:45 Urine RBC (Auto) 2.0 /HPF (0.0-6.0) 02/01/21 22:45 U Epithel Cells (Auto) 13.0 /HPF (0-13.0) 02/01/21 22:45 Urine Bacteria (Auto) 2+ /HPF (Negative) 02/01/21 22:45 Urine Mucus Few /HPF 02/01/21 22:45 Urine Yeast (Budding) 1+ /HPF 02/01/21 22:45 Active Medications - Current Medications Current Medications: Generic Name Dose Route Start Last Admin Trade Name Freq PRN Reason Stop Dose Admin Acetaminophen 650 mg 02/01/21 23:56 Acetaminophen 325 Mg Tab PO Q4H PRN Pain MILD(1-3)/Fever >100.5/ALEMAN Sodium Chloride 1,000 mls @ 75 mls/hr 02/01/21 23:45 Nacl 0.9% 1000 Ml IV DIRECT MARY Lorazepam 2 mg 02/02/21 14:45 Lorazepam 2 Mg/Ml Vial IV BILINGUAL ADMINISTRATIVE ASSISTANT NR Magnesium Hydroxide 30 ml 02/01/21 23:56 Magnesium Hydroxide (Mom) Oral Liqd Udc PO Q4H PRN Constipation Morphine Sulfate 2 mg 02/01/21 23:56 02/02/21 02:56 Morphine 2 Mg/1 Ml Inj IV 2 mg Q4H PRN Administration Pain, Moderate (4-6) Morphine Sulfate 4 mg 02/01/21 23:56 Morphine 4 Mg/1 Ml Inj IV Q4H PRN Pain , Severe (7-10) Ondansetron HCl 4 mg 02/01/21 23:56 02/02/21 13:58 Ondansetron 4 Mg/2 Ml Inj IV 4 mg Q8H PRN Administration Nausea And Vomiting Sodium Chloride 10 ml 02/02/21 10:00 02/02/21 09:59 Sodium Chloride 0.9% 10 Ml Flush Syringe IV 10 ml BID MARY Administration Sodium Chloride 10 ml 02/01/21 23:56 Sodium Chloride 0.9% 10 Ml Flush Syringe IV PRN PRN LINE FLUSH Sodium Polystyrene Sulfonate 30 gm 02/02/21 10:54 Sodium Polystyrene 15 Gm/60 Ml Oral Liqd PO 02/02/21 18:00 ONCE NR
--- NOTE | 2021-02-02 16:30 | Magnetic Resonance Report ---
MR cervical spine wo/w con INDICATION / CLINICAL INFORMATION: 60 years Female; cancer metastesis. TECHNIQUE: Multisequence, multiplanar images of the cervical spine were obtained. Motion artifact is present. COMPARISON: None available. FINDINGS: CRANIOCERVICAL JUNCTION:No significant abnormality. ALIGNMENT: Straightening of the cervical spine seen, which may be related to patient positioning. VERTEBRAE:Heterogeneous marrow seen which may be related to chronic anemia. Other marrow replacement processes cannot entirely be excluded. Modic type II endplate changes noted at multiple levels. Anterior spondylosis seen at multiple levels, presumably on a chronic degenerative basis. VISUALIZED SPINAL CORD: No significant abnormality. INTERVERTEBRAL DISCS: Desiccation narrowing seen at multiple levels. [id number] ANALYSIS: C2-3: Moderate foraminal narrowing on the right from uncinate hypertrophy and/or disc disease. Please correlate with right C3 nerve root symptomatology. C3-4: Mild disc bulge and small posterocentral disc protrusion. Moderate foraminal narrowing on the l eft from uncinate and facet hypertrophy. C4-5: Mild to moderate disc bulge. Moderate foraminal narrowing bilaterally from uncinate and facet h ypertrophy which might affect C5 nerves. Mild canal narrowing. No cord impingement. C5-6: Minimal disc bulge. Mild to moderate foraminal narrowing left from uncinate and facet hypertrop hy. Mild on the right. C6-7: Partial left hemilaminectomy noted. There is osseous hypertrophy on the left. Overall there is mild foraminal narrowing on the left and no significant canal stenosis. C7-T1: Moderate foraminal narrowing on the right from uncinate facet hypertrophy. Mild on the left. At T1-2 there is moderate osseous foraminal narrowing bilaterally from uncinate facet hypertrophy whi ch encroaches upon T1 nerves-right greater than left. Please clinically correlate. PARASPINAL SOFT TISSUES: No significant abnormality. ADDITIONAL FINDINGS: None. IMPRESSION: 1. Heterogeneous marrow as described above. 2. Multilevel degenerative changes seen. Findings at multiple levels could affect the exiting nerve r oots. Please correlate with dermatomal distribution of patient's symptoms, if present. Signer Name: Ben Merino MD, III Signed: 02/02/2021 4:25 PM Workstation Name: [id number]
--- NOTE | 2021-02-02 16:44 | Magnetic Resonance Report ---
MR brain wo/w con INDICATION / CLINICAL INFORMATION: 60 years Female; Seizure disorder. TECHNIQUE: Multiplanar, multisequence MR images of the brain were obtained. COMPARISON: None available. FINDINGS: BRAIN / INTRACRANIAL CONTENTS: Small pineal cyst suggested, which should be of no clinical significan ce. Otherwise, no acute hemorrhage, mass effect, midline shift, hydrocephalus, or acute, large territoria l infarct. No chronic infarct or atrophy. Hippocampal regions are grossly normal in appearance. There are minimal areas of increased signal intensity on FLAIR imaging in the white matter of the cer ebral hemispheres. These are nonspecific findings and may be related to microangiopathy (hypertension , diabetes, atherosclerosis), given the patient's age. Ossification is seen along the falx cerebri-of no clinical significance. I see no signs of abnormal enhancement following contrast administration. CRANIOCERVICAL JUNCTION: No significant abnormality. VASCULAR FLOW-VOIDS: No significant abnormality. ORBITS: No significant abnormality of visualized orbits. SINUSES / MASTOIDS: No significant abnormality in the visualized paranasal sinuses or mastoid air cecy ls. ADDITIONAL FINDINGS: None. IMPRESSION: 1. No focal intra-axial mass, hemorrhage, hydrocephalus, or acute ischemia seen. Signer Name: Ben Merino MD, III Signed: 02/02/2021 4:39 PM Workstation Name: [id number]
[2021-02-03] MEDS ORDERED: oxyCODONE /ACETAMINOPHEN 5-325MG TAB PO ONE (04:45)
[2021-02-03 06:52] LABS: Calcium 9.8 mg/dL (8.4-10.2)
[2021-02-03] MEDS ORDERED: LORazepam 2 MG/ML VIAL IV NR (09:15)
--- NOTE | 2021-02-03 09:52 | Electrocardiograph Report ---
[facility] Test Date: 2021-02-01 Test Time: 22:11:23 Pat Name: NILDA GRANT Department: Room: A474 Gender: F Color Coater: REEMA : 1960 Requested By: AC JOSEPH Order Number: [id number] Reading MD: James Pastor Measurements Intervals [place] Rate: 104 P: 40 ME: 175 QRS: -11 QRSD: 86 T: 48 QT: 335 QTc: 441 Interpretive Statements Sinus tachycardia Low voltage, precordial leads NSST'S. PRWP. No previous ECG available for comparison Electronically Signed On 02-03-2021 9:52:01 EDT by James Pastor
--- NOTE | 2021-02-03 10:04 | Progress Note ---
Assessment and Plan 1. Acute kidney injury: Vasomotor ROSSI in the setting of volume depletion. Urine studies and Renal US ordered. Continue IV fluids. Monitor renal function. Creatinine level is better. Avoid nephrotoxic agents. Meds dosage based on GFR. 2. FEN: Mild Hyperkalemia, improved. Monitor lytes and volume status. 3. Frequent falls, POA: Patient has known history of multiple sclerosis and peripheral neuropathy. Fall precautions. 4. Generalized weakness: Etiology is unclear. Seen by Neuro. MRI brain negative. 5. History of multiple sclerosis: Seen by Neurology. F/u in 1-2 weeks. Subjective: Patient was examined at the bedside. Examination: General appearance: well-developed, appears stated age, obese HEENT: ATNC Neck: Trachea midline Respiratory: ctab Cardiology: S1S2, no murmur Gastrointestinal: soft, obese, bowel sounds heard, not tender Integumentary: no obvious rash Neurologic: AO, able to move extremities Ext: trace LE edema Subjective Date of service: 02/03/21 Objective - Vital Signs Vital signs: Vital Signs - 12hr 02/02/21 02/02/21 02/02/21 22:15 22:31 22:45 Temperature Pulse Rate Respiratory Rate Blood Pressure 146/96 158/90 158/90 O2 Sat by Pulse 100 100 100 Oximetry 02/02/21 02/02/21 02/02/21 23:01 23:15 23:31 Temperature Pulse Rate Respiratory Rate Blood Pressure 145/87 145/87 146/92 O2 Sat by Pulse 100 97 96 Oximetry 02/02/21 02/03/21 02/03/21 23:45 00:01 00:15 Temperature Pulse Rate Respiratory Rate Blood Pressure 146/92 154/93 146/92 O2 Sat by Pulse 98 100 100 Oximetry 02/03/21 02/03/21 02/03/21 00:31 00:45 01:59 Temperature Pulse Rate Respiratory Rate Blood Pressure 147/85 147/85 148/90 O2 Sat by Pulse 100 100 98 Oximetry 02/03/21 02/03/21 02/03/21 02:01 03:10 05:54 Temperature 98.5 F Pulse Rate 100 H Respiratory 18 Rate Blood Pressure 148/90 151/100 O2 Sat by Pulse 97 92 98 Oximetry 02/03/21 08:28 Temperature 98.8 F Pulse Rate 107 H Respiratory 20 Rate Blood Pressure 153/69 O2 Sat by Pulse 91 Oximetry - Lab 02/02/21 06:39 02/03/21 05:51 Most recent lab results Calcium 9.8 mg/dL (8.4-10.2) 02/03/21 05:51 Magnesium 2.00 mg/dL (1.7-2.3) 02/03/21 05:51 Medications & Allergies - Medications Allergies/Adverse Reactions: Allergies hydrochlorothiazide Allergy (Verified 02/01/21 16:55) Anaphylaxis Home Medications: Home Medications Medication Instructions Recorded Confirmed Last Taken Type Ibuprofen [Motrin 400 MG tab] 400 mg PO TID 5 Days #15 tablet 08/22/20 02/03/21 01/29/21 Rx Baclofen 20 mg PO Q6H 02/03/21 02/03/21 01/29/21 History Gabapentin 300 mg PO Q6H #60 cap 02/03/21 Unknown Rx Losartan Potassium 100 mg PO QHS #30 02/03/21 Unknown Rx Metoprolol Xl [Metoprolol 25 mg PO QHS #30 02/03/21 Unknown Rx SUCCINATE ER TAB] NIFEdipine [Nifedipine ER] 30 mg PO QHS #30 02/03/21 Unknown Rx Pregabalin 50 mg PO BID #60 capsule 02/03/21 Unknown Rx Primidone [Mysoline] 50 mg PO Q6H #120 02/03/21 Unknown Rx Promethazine [Phenergan] 25 mg PO QID PRN #12 02/03/21 Unknown Rx Sertraline [Zoloft] 100 mg PO QDAY 30 Days #30 02/03/21 Unknown Rx oxyCODONE /ACETAMINOPHEN [Percocet 1 tab PO Q6H PRN #15 tab 02/03/21 Unknown Rx 5/325 mg] tiZANidine [Zanaflex 4mg TAB] 4 mg PO BID #30 02/03/21 Unknown Rx Active Medications: Generic Name Dose Route Start Last Admin Trade Name Freq PRN Reason Stop Dose Admin Acetaminophen 650 mg 02/01/21 23:56 Acetaminophen 325 Mg Tab PO Q4H PRN Pain MILD(1-3)/Fever >100.5/ALEMAN Sodium Chloride 1,000 mls @ 75 mls/hr 02/01/21 23:45 02/03/21 03:19 Nacl 0.9% 1000 Ml IV 75 mls/hr DIRECT MARY Administration Lorazepam 2 mg 02/02/21 14:45 Lorazepam 2 Mg/Ml Vial IV 02/03/21 14:44 MERCHANDISING PROFESSOR NR Lorazepam 2 mg 02/03/21 09:15 Lorazepam 2 Mg/Ml Vial IV MERCHANDISING PROFESSOR NR Magnesium Hydroxide 30 ml 02/01/21 23:56 Magnesium Hydroxide (Mom) Oral Liqd Udc PO Q4H PRN Constipation Morphine Sulfate 2 mg 02/01/21 23:56 02/02/21 02:56 Morphine 2 Mg/1 Ml Inj IV 2 mg Q4H PRN Administration Pain, Moderate (4-6) Morphine Sulfate 4 mg 02/01/21 23:56 02/02/21 22:13 Morphine 4 Mg/1 Ml Inj IV 4 mg Q4H PRN Administration Pain , Severe (7-10) Ondansetron HCl 4 mg 02/01/21 23:56 02/02/21 13:58 Ondansetron 4 Mg/2 Ml Inj IV 4 mg Q8H PRN Administration Nausea And Vomiting Sodium Chloride 10 ml 02/02/21 10:00 02/02/21 22:17 Sodium Chloride 0.9% 10 Ml Flush Syringe IV 10 ml BID MARY Administration Sodium Chloride 10 ml 02/01/21 23:56 Sodium Chloride 0.9% 10 Ml Flush Syringe IV PRN PRN LINE FLUSH
--- NOTE | 2021-02-03 10:39 | Progress Note ---
Assessment and Plan Assessment and Plan # this is 60 ys old femal presented with increas fall at home X 5 days -she is with localized tenderness in hip L>R more lumber region No limitation on hip ,Xry hip in unremarkable -more pronounced weakness left >R side upper and lower -- no cranial nerves involvment -MRI brain is unremarkable ---No sign to suggest MS. -Xry hips is unremarkable # Cervical disc disease with hx of old left hemilaminectomy -also noted cervical spinal stenosis at multiple level with no sign of MS nor Mylopathy or central disease -Add lyrica 75 mg bid -NO Morphine # Frequent falls -Patient has known history of multiple sclerosis and peripheral neuropathy. -Patient will be placed on fall precautions. -she use walker at home # Generalized weakness -Etiology is unclear. Possibly secondary to the diarrhea. # History of multiple sclerosis So far MRI Brain and cervical showed no sign of MS !!! -suggest MRI brain and spine with gd ? # Morbid obesity -possibly contribute and add to her gait problem and unsteadiness she use walker at home for ambulation # Acute kidney injury -Possibly secondary to volume loss for the diarrhea. -Patient commenced on IV fluid. We will monitor BUN and creatinine. # DVT prophylaxis -Patient placed on subcutaneous heparin. # Full code status -Patient is full code. 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 MRI brain is unremarkable no sign on MS no enhancing lesion , no CVA MRI Cervical showed degenerative disc disese with Hx of hemilaminectomy remote at C6-7 she is with multiple level cervical spinal stenosis peripheral , again no sign of MS is noted on C spine Xray hip is unremarkable with no arthritis no fracture Objective - Vital Sign Vital Signs - 12hr 02/02/21 02/02/21 02/02/21 22:45 23:01 23:15 Temperature Pulse Rate Respiratory Rate Blood Pressure 158/90 145/87 145/87 O2 Sat by Pulse 100 100 97 Oximetry 02/02/21 02/02/21 02/03/21 23:31 23:45 00:01 Temperature Pulse Rate Respiratory Rate Blood Pressure 146/92 146/92 154/93 O2 Sat by Pulse 96 98 100 Oximetry 02/03/21 02/03/21 02/03/21 00:15 00:31 00:45 Temperature Pulse Rate Respiratory Rate Blood Pressure 146/92 147/85 147/85 O2 Sat by Pulse 100 100 100 Oximetry 02/03/21 02/03/21 02/03/21 01:59 02:01 03:10 Temperature 98.5 F Pulse Rate 100 H Respiratory 18 Rate Blood Pressure 148/90 148/90 151/100 O2 Sat by Pulse 98 97 92 Oximetry 02/03/21 02/03/21 05:54 08:28 Temperature 98.8 F Pulse Rate 107 H Respiratory 20 Rate Blood Pressure 153/69 O2 Sat by Pulse 98 91 Oximetry - General Apperance Constitutional: comfortable - EENT EENT: PERRL, mucous membranes moist - Respiratory Respiratory: chest non-tender, lungs clear, rhonchi - Cardiovascular Cardiovascular: regular rate, normal S1, normal S2 Extremities: no peripheral edema bilat, no clubbing, cyanosis - Gastrointestinal Gastrointestinal: normoactive bowel sounds - Integumentary Integumentary: normal - Neurologic Cranial nerve examination: PERRL, EOMI, intact Speech examination: intact Detailed motor examination: other (diffuse weakness predominatly left leg with tender lumber spine , reflexes are suppressed , gait not done) - Laboratory Findings CBC and BMP: 02/02/21 06:39 02/03/21 05:51 Abnormal Lab Findings: Abnormal Labs 02/01/21 02/01/21 02/01/21 19:06 19:06 19:06 RDW 15.4 H Stevens % (Auto) 8.5 H Eos % (Auto) Stevens # (Auto) 0.9 H PT 15.1 H Sodium 133 L Potassium Chloride 97.3 L BUN 47 H Creatinine 2.1 H Glucose AST 71 H Total Protein 8.3 H Albumin 3.4 L 02/02/21 02/02/21 02/03/21 06:39 06:39 05:51 RDW Stevens % (Auto) 10.1 H Eos % (Auto) 4.8 H Stevens # (Auto) 0.9 H PT Sodium Potassium 5.3 H Chloride BUN 41 H 30 H Creatinine 1.7 H 1.3 H Glucose 126 H AST Total Protein Albumin
[2021-02-03] MEDS ORDERED: PREGABALIN 50 MG CAP PO SCH (11:00)
[2021-02-03 13:05] VITALS: BP 141/92
--- NOTE | 2021-02-03 15:04 | Ultrasound Report ---
ULTRASOUND RENAL INDICATION / CLINICAL INFORMATION: Acute renal failure.. COMPARISON: None available. FINDINGS: RIGHT KIDNEY: Length = 10.0 cm. - Echogenicity: Normal. - Cortical Thickness: Normal. - Hydronephrosis: None. - Cyst / Mass: None. - Stones: None seen. LEFT KIDNEY: Length = 10.8 cm. - Echogenicity: Normal. - Cortical Thickness: Normal. - Hydronephrosis: None. - Cyst / Mass: None. - Stones: None seen. URINARY BLADDER: No significant abnormality. FREE FLUID: None. ADDITIONAL FINDINGS: Mild diffuse increased echogenicity of the liver parenchyma compared to the righ t renal cortex. IMPRESSION: 1. No evidence of medical renal disease or hydronephrosis. 2. Mild diffuse fatty infiltration of the liver. Scribed by: Allie Banda RDMS, RVT Scribed: 02/03/2021 1:34 PM I have reviewed the images, agree with this report, and edited this report as needed. Signer Name: Armond Sharpe MD Signed: 02/03/2021 3:00 PM Workstation Name: [id number]
--- NOTE | 2021-02-03 15:54 | Discharge Summary ---
Providers - Providers Date of Admission: 02/01/21 23:57 Date of discharge: 02/03/21 Attending physician: GABO SALINAS 02/01/21 23:56 Consult to Physician [CONS] Routine Comment: Consulting Provider: ENEIDA NICOLE Physician Instructions: Reason For Exam: Generalized Weakness, H/O Multiple Sclerosis 02/02/21 06:57 Consult to Physician [CONS] Routine Comment: Consulting Provider: YSBIL PABLO Physician Instructions: Reason For Exam: ROSSI 02/03/21 04:32 Consult to PICC Line RN [CONS] Routine Reason For Exam: difficult stick Type Line:: Midline 02/03/21 09:56 Physical Therapy Evaluation and Treat [CONS] Urgent Comment: Reason For Exam: PT to eval and treat 02/03/21 09:57 Occupational Therapy Evaluate and Treat [CONS] Urgent Comment: Reason For Exam: OT to eval and treat Primary care physician: THIN FILM TECHNICIAN Hospitalization Condition: Stable Hospital course: 60-year-old female with known history of hypertension, peripheral neuropathy and multiple sclerosis presents to the emergency room today complaining of left hip pain and generalized weakness. Patient states that she fell about 5 days ago while she was trying to use the bathroom. She normally ambulates with a walker but indicates states that her right leg give out on her. She denies any head injury, denies any loss of consciousness. However patient indicates that she has been having frequent falls lately. Patient denies any fever or chills, no chest pain or shortness of breath, no nausea or vomiting and no abdominal pain. She has been having diarrhea for about a month but denies any bright red blood per rectum. She denies using any new medications. Her last intake of antibiotics was about 5 months ago. Work-up in the emergency room today reveals a BUN/creatinine of 47 and 2.1 respectively, sodium level of 133. 02/02/2021; Patient with multiple sclerosis, history of recurrent falls Neurology evaluated, extensive neuro work-up is in progress Physical therapy occupational therapy 02/03/2021 Patient able to walk to the bathroom with slight help Home health with PT arranged MRI was negative for any new stroke or any multiple sclerosis plaques. I doubt multiple sclerosis diagnosis in the past Patient is obese and needs weight reduction to walk better Patient to follow-up with bariatric surgery-Dr. Stallworth Patient counseled about weight and the effects of morbid obesity on her recurrent falls + Assessment and Plan Assessment and plan: --Frequent falls Current Visit: Yes Status: Acute Plan to address problem: Multiple falls secondary to obesity and unsteadiness. Next needs extensive physical therapy and strengthening of lower back and leg muscles Also needs to lose weight --Generalized weakness Current Visit: Yes Status: Acute Plan to address problem: Improved . --History of multiple sclerosis Current Visit: Yes Status: Acute Plan to address problem: .Patient has multiple sclerosis MRI did not show any blocks Patient carries a diagnosis of multiple sclerosis No confirmatory evidence -- Acute kidney injury Current Visit: Yes Status: Acute Nearly resolved Vasomotor nephropathy Creatinine 1.3 --Mild hyperkalemia; Current Visit: Yes Status: Acute Resolved --DVT prophylaxis Current Visit: Yes Status: Acute Plan to address problem: To walk more and prevent DVTs -- Full code status Current Visit: Yes Status: Acute Plan to address problem: Patient is full code. Neurology consult appreciated Disposition: HOME HEALTH CARE SERVICE Final Discharge Diagnosis (Prints w/discharge instructions): ROSSI. Multiple falls. Multiple sclerosis by history. Hyperkalemia. Morbid obesity - Discharge Diagnoses (1) Acute kidney injury Status: Acute (2) Frequent falls Status: Acute (3) Generalized weakness Status: Acute (4) History of multiple sclerosis Status: Acute (5) DVT prophylaxis Status: Acute Core Measure Documentation - Palliative Care Palliative Care/ Comfort Measures: Not Applicable - Core Measures Any of the following diagnoses?: none Exam - Constitutional Vitals: Temp Pulse Resp BP Pulse Ox 98.3 F 111 H 20 141/92 94 02/03/21 11:36 02/03/21 11:36 02/03/21 11:36 02/03/21 11:36 02/03/21 11:36 General appearance: Present: no acute distress, well-nourished - EENT Eyes: Present: PERRL ENT: hearing intact, clear oral mucosa - Neck Neck: Present: supple, normal ROM - Respiratory Respiratory effort: normal Respiratory: bilateral: CTA - Cardiovascular Heart rate: 78 Rhythm: regular Heart Sounds: Present: S1 & S2. Absent: rub, click - Extremities Extremities: pulses symmetrical, No edema Peripheral Pulses: within normal limits - Abdominal General gastrointestinal: Present: soft, non-tender, non-distended, normal bowel sounds Female genitourinary: Present: normal - Integumentary Integumentary: Present: clear, warm, dry - Musculoskeletal Musculoskeletal: gait normal, strength equal bilaterally - Psychiatric Psychiatric: appropriate mood/affect, intact judgment & insight - Neurologic Neurologic: CNII-XII intact, moves all extremities Plan Activity: no restrictions Weight Bearing Status: Weight Bear as Tolerated Diet: low fat, low cholesterol, low salt Durable Medical Equipment Needed Upon Discharge: Walker-Rolling Plan of Treatment: Home physical therapy Follow-up with bariatric surgery-Dr. Stallworth Follow up with: PRIMARY CAREMD [Primary Care Provider] - 3-5 Days DEMARCO STALLWORTH MD [Staff Physician] - 7 Days Prescriptions: Gabapentin 300 mg PO Q6H #60 cap Losartan Potassium 100 mg PO QHS #30 Metoprolol Xl [Metoprolol SUCCINATE ER TAB] 25 mg PO QHS #30 Primidone [Mysoline] 50 mg PO Q6H #120 NIFEdipine [Nifedipine ER] 30 mg PO QHS #30 oxyCODONE /ACETAMINOPHEN [Percocet 5/325 mg] 1 tab PO Q6H PRN #15 tab PRN Reason: Pain , Severe (7-10) Promethazine [Phenergan] 25 mg PO QID PRN #12 PRN Reason: Nausea Pregabalin 50 mg PO BID #60 capsule tiZANidine [Zanaflex 4mg TAB] 4 mg PO BID #30 Sertraline [Zoloft] 100 mg PO QDAY 30 Days #30
[2021-02-06 19:11] LABS: ANA Screen, IFA Negative (Negative)
== END 2021-02-03 16:30 | disposition home health service (06) ==
LOC: ED 15:48 → 3A 23:57 → 4A 02-02 23:28
PROVIDERS: ADMIT Internal Medicine Geriatric Medicine; ATTEND Internal Medicine
DX: N17.9 Acute kidney failure, unspecified (principal); I10 Essential (primary) hypertension; R53.1 Weakness; G35 Multiple sclerosis; E66.01 Morbid (severe) obesity due to excess calories; E87.5 Hyperkalemia; R29.6 Repeated falls; Z68.29 Body mass index [BMI] 29.0-29.9, adult; Z90.710 Acquired absence of both cervix and uterus; Z79.899 Other long term (current) drug therapy; Z98.890 Other specified postprocedural states; Z90.49 Acquired absence of other specified parts of digestive tract
CPT/HCPCS: 36415; 70553; 71045; 72156; 73502; 76770; 80048; 80053; 81001; 82607; 83735; 83880; 84443; 85025; 85610; 85730; 86038; 87086; 93005; 93970; 96361; 96374; 96375; 96376; 97161; 99285; A9575; G0378; J2270; J2405; J7030

== ENCOUNTER 2021-03-21 11:51 | Inpatient (IN) | payer MEDICARE ==
--- NOTE | 2021-03-21 12:37 | Emergency Department Report ---
<SHILPA JONES - Last Filed: 03/21/21 18:55> ED General Adult HPI - General Chief complaint: Extremity Problem,Nontraumatic Stated complaint: LEG WEAKNESS/PAIN Time Seen by Provider: 03/21/21 12:06 - Related Data Home Medications Medication Instructions Recorded Confirmed Last Taken Baclofen 20 mg PO Q6H 02/03/21 03/22/21 01/29/21 Acetaminophen with Codeine 1 each PO Q4HR 03/22/21 03/22/21 Unknown [Acetaminophen-Codeine #4 TAB] Gabapentin [Neurontin] 300 mg PO Q6HR 03/22/21 03/22/21 Unknown Metoprolol Xl [Metoprolol 25 mg PO QDAY 03/22/21 03/22/21 Unknown SUCCINATE ER TAB] NIFEdipine [Nifedipine ER] 30 mg PO DAILY 03/22/21 03/22/21 Unknown tiZANidine [Zanaflex 4mg TAB] 4 mg PO QPM 03/22/21 03/22/21 Unknown tiZANidine [Zanaflex 4mg TAB] 8 mg PO QHS 03/22/21 03/22/21 Unknown Previous Rx's Medication Instructions Recorded Last Taken Type Ibuprofen [Motrin 400 MG tab] 400 mg PO TID 5 Days #15 tablet 08/22/20 01/29/21 Rx Losartan Potassium 100 mg PO QHS #30 02/03/21 Unknown Rx Metoprolol Xl [Metoprolol 25 mg PO QHS #30 02/03/21 Unknown Rx SUCCINATE ER TAB] Pregabalin 50 mg PO BID #60 capsule 02/03/21 Unknown Rx Primidone [Mysoline] 50 mg PO Q6H #120 02/03/21 Unknown Rx Promethazine [Phenergan] 25 mg PO QID PRN #12 02/03/21 Unknown Rx Sertraline [Zoloft] 100 mg PO QDAY 30 Days #30 02/03/21 Unknown Rx oxyCODONE /ACETAMINOPHEN [Percocet 1 tab PO Q6H PRN #15 tab 02/03/21 Unknown Rx 5/325 mg] Allergies Allergy/AdvReac Type Severity Reaction Status Date / Time aspirin Allergy Anaphylaxis Verified 03/22/21 08:51 hydrochlorothiazide Allergy Anaphylaxis Verified 02/01/21 16:55 ED Past Medical Hx - Medications Home Medications: Home Medications Medication Instructions Recorded Confirmed Last Taken Type Ibuprofen [Motrin 400 MG tab] 400 mg PO TID 5 Days #15 tablet 08/22/20 03/22/21 01/29/21 Rx Baclofen 20 mg PO Q6H 02/03/21 03/22/21 01/29/21 History Losartan Potassium 100 mg PO QHS #30 02/03/21 03/22/21 Unknown Rx Metoprolol Xl [Metoprolol 25 mg PO QHS #30 02/03/21 03/22/21 Unknown Rx SUCCINATE ER TAB] Pregabalin 50 mg PO BID #60 capsule 02/03/21 03/22/21 Unknown Rx Primidone [Mysoline] 50 mg PO Q6H #120 02/03/21 03/22/21 Unknown Rx Promethazine [Phenergan] 25 mg PO QID PRN #12 02/03/21 03/22/21 Unknown Rx Sertraline [Zoloft] 100 mg PO QDAY 30 Days #30 02/03/21 03/22/21 Unknown Rx oxyCODONE /ACETAMINOPHEN [Percocet 1 tab PO Q6H PRN #15 tab 02/03/21 03/22/21 Unknown Rx 5/325 mg] Acetaminophen with Codeine 1 each PO Q4HR 03/22/21 03/22/21 Unknown History [Acetaminophen-Codeine #4 TAB] Gabapentin [Neurontin] 300 mg PO Q6HR 03/22/21 03/22/21 Unknown History Metoprolol Xl [Metoprolol 25 mg PO QDAY 03/22/21 03/22/21 Unknown History SUCCINATE ER TAB] NIFEdipine [Nifedipine ER] 30 mg PO DAILY 03/22/21 03/22/21 Unknown History tiZANidine [Zanaflex 4mg TAB] 4 mg PO QPM 03/22/21 03/22/21 Unknown History tiZANidine [Zanaflex 4mg TAB] 8 mg PO QHS 03/22/21 03/22/21 Unknown History ED Course - Reevaluation(s) Reevaluation #2: 03/21/21 18:55 Received sign-out from Dr Real to follow-up on MRI C/T/L spine results. MRI Lumbar Spine has resulted, however, cervical and thoracic still showing "ORDERED." Pt has returned from MRI. MRI report of Lumbar spine does NOT include cervical or thoracic reports. No one contacted me regarding pt needing additional medication for MRI. It is assumed that these 2 studies were not done. There is no note in the chart from assistant professor surgical technology. I called over to MRI and did not get an answer. Pt's nurse walked over to MRI area and states no one is there, appears to have gone home. Nurse states she was not told by assistant professor surgical technology that they were unable to do the other studies. I spoke with patient who states that she was unable to tolerate "the upper part of the exam, so they said that they would just do the lower part and try to do the rest tomorrow." Patient admitted to Dr Ramirez, hospitalist. ED Medical Decision Making - Lab Data Result diagrams: 03/21/21 15:02 03/21/21 15:02 ED Disposition Clinical Impression: Generalized weakness, Frequent falls, Paraparesis of both lower limbs, Obesity Disposition: ADMITTED INPATIENT Is pt being admited?: Yes Condition: Fair Time of Disposition: 19:23 <CARRINGTON REAL - Last Filed: 03/26/21 00:47> ED General Adult HPI - General PUI?: No Source: patient, EMS (Verbal report received from emergency medical services. EMS documentation not available at time of chart dictation ), RN notes reviewed, old records reviewed Mode of arrival: Stretcher Limitations: Physical Limitation - History of Present Illness Initial comments: The patient was evaluated in the emergency department for symptoms described in the history of present illness. He/she was evaluated in the context of the global COVID-19 pandemic, which necessitated consideration that the patient might be at risk for infection with the virus that causes COVID-19. Institutional protocols and algorithms that pertain to the evaluation of patients at risk for COVID-19 are in a state of rapid change based on information released by regulatory bodies including the CDC and federal and state organizations. These policies and algorithms were followed during the patient's care in the emergency department. Please note that these policies, procedures and recommendations changed on a rapid basis. Primary CARE doctor: Dr. Wayne Gold Past medical history: Hypertension, morbid obesity, peripheral neuropathy, multiple sclerosis, history of recurrent falls. Admitted to this hospital January 2021, had MRI brain and cervical spine negative for acute findings. Home health with physical therapy was arranged. The patient is brought to the hospital by emergency medical services today with a complaint of lower extremity weakness bilaterally, present for 2 weeks, worsened over the past 1 week. Patient reports that in the past she has required a walker for ambulatory assistance. She began to have increasing frequency of falls, so she reports her primary care doctor ordered a wheelchair for her 2 weeks ago. Approximately 1 week ago, she received her COVID-19 vaccination, and feels that her lower extremity weakness is worsened in her bilateral lower extremities. She also describes some burning pain in her bilateral lower extremities. She denies headache, neck pain, chest pain, abdominal pain. She has lumbar and thoracic back pain secondary to falls. The patient denies bladder or bowel retention or incontinence, and she also denies saddle anesthesia. Patient reports anxiety at the thought of needing an MRI. Patient reports no Covid symptomatology. -: Gradual, week(s) Location: back, left, right, lower extremity Quality: other (Burning, pinching) Consistency: constant Improves with: none Worsens with: none ED Review of Systems ROS: Stated complaint: LEG WEAKNESS/PAIN Other details as noted in HPI Constitutional: denies: diaphoresis, fever, malaise, weakness Eyes: denies: eye discharge ENT: denies: epistaxis Respiratory: denies: cough Cardiovascular: denies: chest pain Gastrointestinal: denies: abdominal pain Genitourinary: denies: dysuria Musculoskeletal: back pain, arthralgia, myalgia Neurological: weakness, numbness, paresthesias, abnormal gait Psychiatric: anxiety ED Past Medical Hx - Past Medical History Previous Medical History?: Yes Hx Hypertension: Yes Hx Deep Vein Thrombosis: No Additional medical history: Esophageal diverticulum. neuropathy and MS. 2L O2 at night - Surgical History Past Surgical History?: Yes Hx Pacemaker: No Hx Internal Defibrillator: No Hx Cholecystectomy: Yes Additional Surgical History: esopagal dilation x5. hysterectomy. right knee. incarerated hernia - Social History Smoking Status: Never Smoker ED Physical Exam - General Limitations: Physical Limitation General appearance: alert, anxious, obese - Head Head exam: Present: atraumatic, normocephalic - Eye Eye exam: Present: normal appearance, EOMI. Absent: nystagmus - ENT ENT exam: Present: normal exam, normal orophraynx, mucous membranes moist, normal external ear exam - Neck Neck exam: Present: normal inspection, full ROM. Absent: tenderness, meningismus - Respiratory Respiratory exam: Present: normal lung sounds bilaterally. Absent: respiratory distress, wheezes, rales, rhonchi, stridor, decreased breath sounds - Cardiovascular Cardiovascular Exam: Present: regular rate, normal rhythm, normal heart sounds. Absent: bradycardia, tachycardia, irregular rhythm, systolic murmur, diastolic murmur, rubs, gallop - GI/Abdominal GI/Abdominal exam: Present: soft. Absent: distended, tenderness, guarding, rebound, rigid, pulsatile mass - Extremities Exam Extremities exam: Present: normal inspection, full ROM (Full range of motion in the bilateral upper extremities.), tenderness (Bilateral lower extremities tender), normal capillary refill, pedal edema (3+ edema in the bilateral lower extremities) - Back Exam Back exam: Present: normal inspection, paraspinal tenderness, vertebral tenderness, other (Distal thoracic spine tenderness, proximal lumbar spine tenderness). Absent: tenderness, CVA tenderness (R), CVA tenderness (L) - Neurological Exam Neurological exam: Present: alert (No facial droop. Tongue midline. EOMI. Speech fluid and intact. Shoulder shrug intact.), oriented X3, motor sensory deficit (There is 5 out of 5 strength bilateral upper extremities. Sensation is intact to light touch bilateral upper extremities. Patient has decreased sensation to light touch at T11/T12, involving her bilateral lower extremities. Patient has 0 out of 5 strength bilateral lower extremities.). Absent: reflexes normal (Downgoing plantar reflexes bilaterally. Diminished quadriceps reflexes bilaterally.) - Psychiatric Psychiatric exam: Present: anxious - Skin Skin exam: Present: warm, dry, intact, normal color. Absent: rash ED Course Vital Signs 03/21/21 03/22/21 03/22/21 12:02 00:00 04:45 Temperature 99.0 F Pulse Rate 87 Pulse Rate [ 86 From Monitor] Respiratory 18 20 Rate Blood Pressure 170/93 Blood Pressure 150/90 [Right] O2 Sat by Pulse 98 98 97 Oximetry 03/22/21 03/22/21 03/22/21 04:50 05:15 05:31 Temperature Pulse Rate 83 Pulse Rate [ From Monitor] Respiratory Rate Blood Pressure 176/103 176/103 176/103 Blood Pressure [Right] O2 Sat by Pulse 94 95 Oximetry 03/22/21 03/22/21 03/22/21 06:01 08:39 14:01 Temperature Pulse Rate 89 Pulse Rate [ From Monitor] Respiratory 16 Rate Blood Pressure 166/101 134/70 Blood Pressure 137/88 [Right] O2 Sat by Pulse 100 100 100 Oximetry 03/22/21 03/22/21 03/22/21 14:11 14:21 14:31 Temperature Pulse Rate Pulse Rate [ From Monitor] Respiratory Rate Blood Pressure 134/70 134/70 134/70 Blood Pressure [Right] O2 Sat by Pulse 100 100 100 Oximetry 03/22/21 03/22/21 03/22/21 14:41 14:51 15:00 Temperature Pulse Rate 80 Pulse Rate [ From Monitor] Respiratory 19 Rate Blood Pressure 134/70 134/70 Blood Pressure 158/90 [Right] O2 Sat by Pulse 100 100 99 Oximetry 03/22/21 03/22/21 03/22/21 15:01 15:11 15:21 Temperature Pulse Rate Pulse Rate [ From Monitor] Respiratory Rate Blood Pressure 134/70 134/70 134/70 Blood Pressure [Right] O2 Sat by Pulse 100 100 100 Oximetry 03/22/21 03/22/21 03/22/21 15:31 15:41 15:51 Temperature Pulse Rate Pulse Rate [ From Monitor] Respiratory Rate Blood Pressure 134/70 134/70 161/133 Blood Pressure [Right] O2 Sat by Pulse 100 100 100 Oximetry 03/22/21 03/22/21 03/22/21 16:01 16:11 16:21 Temperature Pulse Rate Pulse Rate [ From Monitor] Respiratory Rate Blood Pressure 161/133 161/133 161/133 Blood Pressure [Right] O2 Sat by Pulse 100 99 100 Oximetry 03/22/21 03/22/21 03/22/21 16:31 16:41 16:51 Temperature Pulse Rate Pulse Rate [ From Monitor] Respiratory Rate Blood Pressure 161/133 161/133 161/133 Blood Pressure [Right] O2 Sat by Pulse 100 100 100 Oximetry 03/22/21 03/22/21 03/22/21 17:00 17:10 17:21 Temperature Pulse Rate Pulse Rate [ From Monitor] Respiratory Rate Blood Pressure 161/133 161/133 161/133 Blood Pressure [Right] O2 Sat by Pulse 100 100 100 Oximetry 03/22/21 03/22/21 03/22/21 17:31 17:41 17:51 Temperature Pulse Rate Pulse Rate [ From Monitor] Respiratory Rate Blood Pressure 161/133 161/133 192/105 Blood Pressure [Right] O2 Sat by Pulse 100 100 100 Oximetry 03/22/21 03/22/21 03/22/21 18:01 18:11 18:21 Temperature Pulse Rate Pulse Rate [ From Monitor] Respiratory Rate Blood Pressure 192/105 192/105 191/100 Blood Pressure [Right] O2 Sat by Pulse 100 100 100 Oximetry 03/22/21 03/22/21 03/22/21 18:31 18:41 18:50 Temperature Pulse Rate Pulse Rate [ From Monitor] Respiratory Rate Blood Pressure 191/100 191/100 169/78 Blood Pressure [Right] O2 Sat by Pulse 100 100 100 Oximetry 03/22/21 03/22/21 03/22/21 18:51 19:01 19:11 Temperature Pulse Rate 89 Pulse Rate [ From Monitor] Respiratory 19 Rate Blood Pressure 169/78 169/78 Blood Pressure 180/101 [Right] O2 Sat by Pulse 99 100 100 Oximetry 03/22/21 03/22/21 03/22/21 19:21 19:31 19:32 Temperature Pulse Rate 90 Pulse Rate [ From Monitor] Respiratory 20 20 Rate Blood Pressure 148/95 169/78 Blood Pressure 148/95 [Right] O2 Sat by Pulse 100 100 100 Oximetry 03/22/21 03/22/21 03/22/21 19:41 19:51 20:01 Temperature Pulse Rate Pulse Rate [ From Monitor] Respiratory Rate Blood Pressure 169/78 148/103 148/103 Blood Pressure [Right] O2 Sat by Pulse 100 100 100 Oximetry 03/22/21 03/22/21 03/22/21 20:11 20:20 20:31 Temperature Pulse Rate Pulse Rate [ From Monitor] Respiratory Rate Blood Pressure 148/103 206/108 206/108 Blood Pressure [Right] O2 Sat by Pulse 100 100 100 Oximetry 03/22/21 03/22/21 03/22/21 20:41 20:51 21:01 Temperature Pulse Rate Pulse Rate [ From Monitor] Respiratory Rate Blood Pressure 206/108 206/108 206/108 Blood Pressure [Right] O2 Sat by Pulse 100 100 100 Oximetry 03/22/21 03/22/21 03/22/21 21:11 21:21 21:30 Temperature Pulse Rate 89 Pulse Rate [ From Monitor] Respiratory 20 Rate Blood Pressure 206/108 206/108 Blood Pressure 142/91 [Right] O2 Sat by Pulse 100 100 100 Oximetry 03/22/21 03/22/21 03/22/21 21:31 21:41 21:50 Temperature Pulse Rate Pulse Rate [ From Monitor] Respiratory Rate Blood Pressure 206/108 206/108 206/108 Blood Pressure [Right] O2 Sat by Pulse 100 100 100 Oximetry - Reevaluation(s) Reevaluation #1: 03/21/21 13:12 Differential diagnosis, including but not limited to: Multiple sclerosis, transverse myelitis, epidural abscess, fracture, dislocation, myositis, deconditioning Assessment and plan: 57-year-old female, presenting with bilateral lower extremity weakness and numbness and inability to ambulate for approximately 1 week. She denies bladder and bowel retention incontinence as well as saddle anesthesia. She has a sensory level at approximately T11/T12. Have requested neurology consultation, and Dr. Owen, neurologist has evaluated the patient. MRI of the T and L-spine recommended urgently, with and without contrast. Routine acquisition of cervical spine MRI with and without contrast is recommended for tomorrow. Of note, this patient had MRI of the brain and C- spine in January, which were negative for acute findings. We will treat the patient's pain. I discussed this plan of care with the patient. She is agreeable to this plan of care. She will require admission once her initial diagnostic work-up has been complet e. Patient reports that she gets anxiety when having an MRI. She will therefore be medicated appropriately. 03/21/21 15:43 Care were transferred to the oncoming ER physician, Dr Dale Jones to follow-up on laboratory studies, MRI of T and L-spine, and arrange for admission. Patient currently in MRI at this time. assistant professor surgical technology states patient still in quite a bit of pain, so additional pain medication ordered. 03/21/21 15:57 ED Medical Decision Making - Lab Data Result diagrams: 03/22/21 05:58 03/22/21 05:58 Vital Signs 03/21/21 12:02 Temperature 99.0 F Pulse Rate 87 Respiratory 18 Rate Blood Pressure 150/90 [Right] O2 Sat by Pulse 98 Oximetry Lab Results 03/21/21 03/21/21 03/21/21 Range/Units 15:02 15:02 15:02 WBC 8.2 (4.5-11.0) K/mm3 RBC 3.60 L (3.65-5.03) M/mm3 Hgb 10.9 (10.1-14.3) gm/dl Hct 32.8 (30.3-42.9) % MCV 91 (79-97) fl MCH 30 (28-32) pg MCHC 33 (30-34) % RDW 15.3 H (13.2-15.2) % Plt Count 210 (140-440) K/mm3 Lymph % (Auto) 31.1 (13.4-35.0) % [place] % (Auto) 7.4 H (0.0-7.3) % Eos % (Auto) 3.2 (0.0-4.3) % Baso % (Auto) 0.3 (0.0-1.8) % Lymph # (Auto) 2.6 (1.2-5.4) K/mm3 [place] # (Auto) 0.6 (0.0-0.8) K/mm3 Eos # (Auto) 0.3 (0.0-0.4) K/mm3 Baso # (Auto) 0.0 (0.0-0.1) K/mm3 Seg Neutrophils % 58.0 (40.0-70.0) % Seg Neutrophils # 4.8 (1.8-7.7) K/mm3 PT 13.9 (12.2-14.9) Sec. INR 1.02 (0.87-1.13) Sodium 144 (137-145) mmol/L Potassium 3.8 (3.6-5.0) mmol/L Chloride 107.0 (98-107) mmol/L Carbon Dioxide 23 (22-30) mmol/L Anion Gap 18 mmol/L BUN 16 (7-17) mg/dL Creatinine 1.2 (0.6-1.2) mg/dL Estimated GFR 56 ml/min BUN/Creatinine Ratio 13 % Glucose 98 (65-100) mg/dL Calcium 9.5 (8.4-10.2) mg/dL Magnesium 1.90 (1.7-2.3) mg/dL Total Bilirubin 0.40 (0.1-1.2) mg/dL AST 11 (5-40) units/L ALT 6 L (7-56) units/L Alkaline Phosphatase 56 (35-129) units/L Total Creatine Kinase 82 (30-135) units/L C-Reactive Protein 1.00 (0.00-1.30) mg/dL NT-Pro-B Natriuret Pep 46.66 (0-900) pg/mL Total Protein 7.8 (6.3-8.2) g/dL Albumin 3.7 L (3.9-5) g/dL Albumin/Globulin Ratio 0.9 % - EKG Data -: EKG Interpreted by Ga EKG shows normal: sinus rhythm - EKG Data 03/21/21 14:14 EKG interpreted at 13: 50 Sinus rhythm, 81 bpm. Left axis deviation. Left anterior fascicular block. QTC 473 ms. Low voltage. Abnormal EKG. Not a STEMI. Normal P wave axis. - Radiology Data Radiology results: pending, report reviewed MR thoracic spine wo/w con INDICATION / CLINICAL INFORMATION: increase LES weakness transverse myelitis. TECHNIQUE: Multisequence, multiplanar images of the thoracic spine were obtained. COMPARISON: None available. FINDINGS: ALIGNMENT: Normal alignment. VERTEBRAE:No aggressive osseous marrow signal. Vertebral body heights are preserved. SPINAL CORD: There is increased central T2 cord signal at CT 910 level. SPONDYLOSIS: There is diffuse advanced spondylosis with disc height loss and multilevel reactive Modic type I and type II changes in the vertebral endplates. There is moderate central canal stenosis at T4-5, T5-6, T6-7, and T7-8. There is severe central canal stenosis at T9-T10 and at T11-12. PARASPINAL SOFT TISSUES: No significant abnormality. ADDITIONAL FINDINGS: None. IMPRESSION: Extensive advanced spondylosis with multilevel disc herniations resulting in moderate to severe central canal stenosis at multiple levels. There is increased central T2 cord signal at the T9-10 level that could indicate spinal cord infarct versus developing myelomalacia due to severe spinal canal stenosis at that level. Signer Name: Richar Akers MD Signed: 03/25/2021 3:58 PM Workstation Name: [id number] MRI CERVICAL SPINE 03/24/2021 INDICATION / CLINICAL INFORMATION: cancer meta stesis Patient was given meds prior to MRI and she continued to move, best possible exam. Patient motion. This is the 3rd attempt.. COMPARISON: MRI cervical spine 02/02/2021 FINDINGS: GENERAL OBSERVATIONS: Unenhanced and enhanced MR images of the cervical spine were obtained. Patient motion artifact is present in some of these images. Again seen is heterogeneous bone marrow signal. There is no evidence of acute abnormality. There is no evidence of canal stenosis, spinal cord compression, or intrinsic spinal cord abnormality. Degenerative disc changes are again noted. There is no abnormal contrast enhancement. [id number] ANALYSIS: C7-T1: Unremarkable. C6-7: Mild disc bulging, slightly more pronounced on the left. Left-sided foraminal narrowing. C5-6: Near complete fusion of the disc space. No evidence of stenosis or nerve root compression. C4-5: Moderate symmetric diffuse disc bulging. C3-4: Moderate diffuse disc bulging and left greater than right foraminal narrowing. C2-3: Unremarkable. CRANIO-CERVICAL JUNCTION: Unremarkable. BONE MARROW: Heterogeneous bone marrow signal pattern, unchanged when compared to the prior exam. PARASPINAL SOFT TISSUES: No significant abnormality. IMPRESSION: No evidence of spinal cord compression. Degenerative changes. No significant change when compared to a 1920. Signer Name: Bertram Andrade MD Signed: 03/24/2021 3:31 PM Workstation Name: [id number] MRI BRAIN 03/24/2021 INDICATION / CLINICAL INFORMATION: Seizure disorder Patient was given meds prior to MRI and she continued to move, best possible exam. Patient motion.. TECHNIQUE: Multiplanar, multisequence MR images of the brain were obtained. COMPARISON: MRI brain 02/02/2021 FINDINGS: BRAIN / INTRACRANIAL CONTENTS: Unenhanced and enhanced MR images of the brain were obtained. Prominent patient motion artifact is present. There is no evidence of acute abnormality. Ventricles and sulci are normal in size and shape. There is no evidence of ischemic injury, hemorrhage, or mass. There are no abnormal extra- axial fluid collections. Postcontrast images demonstrate no abnormal contrast enhancement. There is been no significant change when compared to the prior exam from 02/02/2021. EXTRACRANIAL: Unremarkable CRANIOCERVICAL JUNCTION: No significant abnormality. VASCULAR FLOW-VOIDS: No significant abnormality. IMPRESSION: No acute abnormality. No evidence of intracranial metastasis. Signer Name: Bertram Andrade MD Signed: 03/24/2021 3:34 PM Workstation Name: [id number] MR lumbar spine wo/w con INDICATION / CLINICAL INFORMATION: 60 years Female; back pain assess for myelitis vs cord vs MS. TECHNIQUE: Multisequence, multiplanar images of the lumbar spine were obtained. COMPARISON: None available. FINDINGS: There is a transitional vertebral body, which will be labeled S1 for the purposes of this discussion. The most inferior disc space scanned in the axial plane will be considered [id number] scanned. This vertebral body has a lumbar type appearance on sagittal imaging. ALIGNMENT: No significant abnormality. VERTEBRAE:Grossly normal marrow signal and vertebral body height for age. VISUALIZED SPINAL CORD: No significant abnormality. INTERVERTEBRAL DISCS: Multilevel disc desiccation noted. [id number] ANALYSIS: L1-2: Mild to moderate facet hypertrophy. Minimal disc bulging canal narrowing. L2-3: No disc bulge and moderate facet hypertrophy. Mild canal narrowing. Mild to moderate foraminal narrowing on the right with encroachment upon the right L2 nerve. No impingement. L3-4: Mild disc bulge. Moderate facet and ligamentum flavum hypertrophy. Moderate to high-grade canal and lateral recess narrowing seen which could affect L4 nerves. Moderate foraminal narrowing bilaterally with encroachment upon L3 nerves. No impingement. L4-5: Mild to moderate disc bulge. Moderate to marked facet and ligamentum flavum hypertrophy. High-grade canal and lateral recess narrowing seen, which certainly could affect descending nerve roots, particularly the L5 nerves. Moderate foraminal narrowing bilaterally with encroachment upon L4 nerves. No impingement. L5-S1: Mild disc bulge and [id number] facet hypertrophy. Mild canal narrowing. Moderate to marked foraminal narrowing on the left from facet and ligamentum fla vum hypertrophy. Mild on the right. There is encroachment upon and flattening of the left L5 nerve. S1-2: No canal stenosis or foraminal narrowing. PARASPINAL SOFT TISSUES: Mild paraspinous muscular atrophy seen. ADDITIONAL FINDINGS: None. IMPRESSION: 1. Degenerative changes of the lumbar spine as described above. Most marked findings appear to be at L4-5 and L3-4. Please correlate with dermatomal distribution of patient's symptoms, if present. Signer Name: Ben Merino MD, III Signed: 03/21/2021 4:52 PM Workstation Name: [email or web address] Critical care attestation.: If time is entered above; I have spent that time in minutes in the direct care of this critically ill patient, excluding procedure time. ED Disposition Is pt being admited?: Yes Does the pt Need Aspirin: No
[2021-03-21] MEDS ORDERED: MORPHINE 4 MG/1 ML INJ IV ONE ×3 (12:41→15:42)
--- NOTE | 2021-03-21 13:02 | History and Physical Report ---
Medications and Allergies Allergies Allergy/AdvReac Type Severity Reaction Status Date / Time hydrochlorothiazide Allergy Anaphylaxis Verified 02/01/21 16:55 Home Medications Medication Instructions Recorded Confirmed Last Taken Type Ibuprofen [Motrin 400 MG tab] 400 mg PO TID 5 Days #15 tablet 08/22/20 02/03/21 01/29/21 Rx Baclofen 20 mg PO Q6H 02/03/21 02/03/21 01/29/21 History Gabapentin 300 mg PO Q6H #60 cap 02/03/21 Unknown Rx Losartan Potassium 100 mg PO QHS #30 02/03/21 Unknown Rx Metoprolol Xl [Metoprolol 25 mg PO QHS #30 02/03/21 Unknown Rx SUCCINATE ER TAB] NIFEdipine [Nifedipine ER] 30 mg PO QHS #30 02/03/21 Unknown Rx Pregabalin 50 mg PO BID #60 capsule 02/03/21 Unknown Rx Primidone [Mysoline] 50 mg PO Q6H #120 02/03/21 Unknown Rx Promethazine [Phenergan] 25 mg PO QID PRN #12 02/03/21 Unknown Rx Sertraline [Zoloft] 100 mg PO QDAY 30 Days #30 02/03/21 Unknown Rx oxyCODONE /ACETAMINOPHEN [Percocet 1 tab PO Q6H PRN #15 tab 02/03/21 Unknown Rx 5/325 mg] tiZANidine [Zanaflex 4mg TAB] 4 mg PO BID #30 02/03/21 Unknown Rx Physical Examination - Vital Signs Vital Signs: Vital Signs Temp Pulse Resp BP Pulse Ox 99.0 F 87 18 150/90 98 03/21/21 12:02 03/21/21 12:02 03/21/21 12:02 03/21/21 12:02 03/21/21 12:02 Assessment and Plan [place] [facility] Consult Note # Demographics Consult Type: General Neurology Patient Location: Emergency Room First Name: Micaela Last Name: Dimas Date of : 1960 Age: 60 Gender: Female Facility: [facility] Time of Initial Page (Eastern Time): 03/21/2021, 12:36 Time of Return Call (Eastern Time): 03/21/2021, 12:36 # HPI Chief Complaint: Lower extremity weakness and numbness History: 60 yo with history of MS presents with 2 weeks of lower extremity numbness and weakness. History of MS diagnosed in 2008, currently not on disease modifying medications due to changes in insurance. Has never been on any disease modifying medicat ions. At baseline she was using a walker two weeks ago but transferred to wheelchair due to falls. She states her symptoms started on Saturday last week after getting the COVID vaccine. She was trying to transfer from the car to the wheelchair and couldn't due. She also describes numbness and spasms in her legs and lower back. She states she currently can't move her legs at all. She denies any bowel or bladder problems. Per the the patient her numbness starts below the belly button and travels down to her feet. Last Known Normal: I have collected independent history specific to time last normal or last known well. We have collaborated with the provider and at this time, we have the most current timeline with the information that is available. Last week # PMH-FH-SH Past Medical History: hypertension MS, sleep apnea Social History: non-smoker non-drinker Medications: Metoprolol, Nifedipine, Losartan Allergies: HCTZ, ASA # Assessment Impression: Worsening bilateral lower extremity numbness and weakness x 1 week in setting of MS and baseline lower extremity weakness. Differential includes MS exaccerbation, MS pseudoexaccerbation secondary to infection or recent COVID vaccine, other spinal cord etiology. # Plan Thrombolytic/Intervention: NOT IV Thrombolysis or IA Intervention candidate Thrombolytic/Intraarterial Exclusion: IV thrombolytic and IA intervention considered but not recommended as this patient's symptoms are not clinically consistent with an assumed diagnosis of stroke Labs: CBC comprehensive metabolic panel TSH ua Imaging: (urgency: STAT): MRI C spine MRI T spine MRI L spine DVT Prophylaxis: SCD chemical DVT prophylaxis Other: I have discussed my recommendations with the referring provider Additional Recommendations: : MRI spine with and without contrast to further evaluate. If evidence of active demyelination on MRI would treat with IV solumedrol 1000 mg x 5 days Infectious and metabolic workup PT/OT evaluate and treat, assess for rehab potential Outpatient neurology evaluation for MS treatment Disposition: admit # Logistics Telemedicine: Interactive 2 way audio and visual telecommunication technology was utilized during this visit
[2021-03-21] MEDS ORDERED: MIDAZOLAM 5 MG/5 ML INJ MDV IV ONE (15:00)
[2021-03-21 15:36] LABS: Basophils % (Auto) 0.3 % (0.0-1.8); Eosinophils # (Auto) 0.3 K/mm3 (0.0-0.4); Eosinophils % (Auto) 3.2 % (0.0-4.3); Hematocrit 32.8 % (30.3-42.9); Hemoglobin 10.9 gm/dl (10.1-14.3); Lymphocytes # (Auto) 2.6 K/mm3 (1.2-5.4); Lymphocytes % (Auto) 31.1 % (13.4-35.0); Mean Corpuscular HGB Conc 33 % (30-34); Mean Corpuscular Volume 91 fl (79-97); Monocytes # (Auto) 0.6 K/mm3 (0.0-0.8); Monocytes % (Auto) 7.4 % (0.0-7.3); Platelet Count 210 K/mm3 (140-440); Red Cell Distribution Width 15.3 % (13.2-15.2)
[2021-03-21 15:44] LABS: INR 1.02 (0.87-1.13)
[2021-03-21 15:50] LABS: Albumin 3.7 g/dL (3.9-5); Calcium 9.5 mg/dL (8.4-10.2)
[2021-03-21] MEDS ORDERED: MIDAZOLAM 2 MG/2 ML INJ IV ONE (16:04)
[2021-03-21 16:16] LABS: Erythrocyte Sedimentation Rate 49 mm/Hr (0-20)
[2021-03-21] MEDS ORDERED: MIDAZOLAM 5 MG/5 ML INJ MDV IV NR (17:00)
--- NOTE | 2021-03-21 17:56 | Magnetic Resonance Report ---
MR lumbar spine wo/w con INDICATION / CLINICAL INFORMATION: 60 years Female; back pain assess for myelitis vs cord vs MS. TECHNIQUE: Multisequence, multiplanar images of the lumbar spine were obtained. COMPARISON: None available. FINDINGS: There is a transitional vertebral body, which will be labeled S1 for the purposes of this discussion. The most inferior disc space scanned in the axial plane will be considered [id number] scanned. This vertebral body has a lumbar type appearance on sagittal imaging. ALIGNMENT: No significant abnormality. VERTEBRAE:Grossly normal marrow signal and vertebral body height for age. VISUALIZED SPINAL CORD: No significant abnormality. INTERVERTEBRAL DISCS: Multilevel disc desiccation noted. [id number] ANALYSIS: L1-2: Mild to moderate facet hypertrophy. Minimal disc bulging canal narrowing. L2-3: No disc bulge and moderate facet hypertrophy. Mild canal narrowing. Mild to moderate foraminal narrowing on the right with encroachment upon the right L2 nerve. No impingement. L3-4: Mild disc bulge. Moderate facet and ligamentum flavum hypertrophy. Moderate to high-grade canal and lateral recess narrowing seen which could affect L4 nerves. Moderate foraminal narrowing bilater ally with encroachment upon L3 nerves. No impingement. L4-5: Mild to moderate disc bulge. Moderate to marked facet and ligamentum flavum hypertrophy. High-g rade canal and lateral recess narrowing seen, which certainly could affect descending nerve roots, pa rticularly the L5 nerves. Moderate foraminal narrowing bilaterally with encroachment upon L4 nerves. No impingement. L5-S1: Mild disc bulge and [id number] facet hypertrophy. Mild canal narrowing. Moderate to cheryl ed foraminal narrowing on the left from facet and ligamentum flavum hypertrophy. Mild on the right. T here is encroachment upon and flattening of the left L5 nerve. S1-2: No canal stenosis or foraminal narrowing. PARASPINAL SOFT TISSUES: Mild paraspinous muscular atrophy seen. ADDITIONAL FINDINGS: None. IMPRESSION: 1. Degenerative changes of the lumbar spine as described above. Most marked findings appear to be at L4-5 and L3-4. Please correlate with dermatomal distribution of patient's symptoms, if present. Signer Name: Ben Merino MD, III Signed: 03/21/2021 5:52 PM Workstation Name: [email or web address]
[2021-03-21] MEDS ORDERED: PROMETHAZINE 25 MG TAB PO PRN (21:40)
[2021-03-21] MEDS ORDERED: ACETAMINOPHEN 325 MG TAB PO PRN (21:42)
[2021-03-21] MEDS ORDERED: METOCLOPRAMIDE 10 MG/2 ML INJ IV PRN (21:42)
[2021-03-21] MEDS ORDERED: ONDANSETRON 4 MG/2 ML INJ IV PRN (21:42)
--- NOTE | 2021-03-21 21:58 | History and Physical Report ---
History of Present Illness Date of examination: 03/21/21 Date of admission: 03/21/21 19:23 Chief complaint: Bilateral lower extremity weakness for 1 week History of present illness: 60-year-old female with history of hypertension, peripheral neuropathy and depression and chronic pain comes in for increasing weakness of both lower extremity for last 1 or 2 weeks but more so for the last 1 week. Patient was walking normally 2 weeks before and now she can walk only with the help of her walker. Patient has a history of multiple sclerosis diagnosed in the past. No residual focal deficits. Patient has received Covid vaccination 1 week ago and attributes her lower extremity weakness to the Covid vaccine. Patient has 3/5 power in both lower extremities. No loss of sensation. - Past Medical History --Previous Medical History?: Yes --Hypertension: Yes --Additional medical history: Esophageal diverticulum. neuropathy and MS. 2L O2 at night - Surgical History --Past Surgical History?: Yes --Cholecystectomy: Yes --Additional Surgical History: esopagal dilation x5. hysterectomy. right knee. incarerated hernia - Social History --Smoking Status: Never Smoker - Medications Home Medications: Home Medications Medication Instructions Recorded Confirmed Last Taken Type Ibuprofen [Motrin 400 MG tab] 400 mg PO TID 5 Days #15 tablet 08/22/20 02/03/21 01/29/21 Rx Baclofen 20 mg PO Q6H 02/03/21 02/03/21 01/29/21 History Gabapentin 300 mg PO Q6H #60 cap 02/03/21 Unknown Rx Losartan Potassium 100 mg PO QHS #30 02/03/21 Unknown Rx Metoprolol Xl [Metoprolol 25 mg PO QHS #30 02/03/21 Unknown Rx SUCCINATE ER TAB] NIFEdipine [Nifedipine ER] 30 mg PO QHS #30 02/03/21 Unknown Rx Pregabalin 50 mg PO BID #60 capsule 02/03/21 Unknown Rx Primidone [Mysoline] 50 mg PO Q6H #120 02/03/21 Unknown Rx Promethazine [Phenergan] 25 mg PO QID PRN #12 02/03/21 Unknown Rx Sertraline [Zoloft] 100 mg PO QDAY 30 Days #30 02/03/21 Unknown Rx oxyCODONE /ACETAMINOPHEN [Percocet 1 tab PO Q6H PRN #15 tab 02/03/21 Unknown Rx 5/325 mg] tiZANidine [Zanaflex 4mg TAB] 4 mg PO BID #30 02/03/21 Unknown Rx Review of Systems Constitutional: denies: diaphoresis, fever, malaise, weakness Eyes: denies: eye discharge ENT: denies: epistaxis Respiratory: denies: cough Cardiovascular: denies: chest pain Gastrointestinal: denies: abdominal pain Genitourinary: denies: dysuria Musculoskeletal: back pain, arthralgia, myalgia Neurological: weakness, numbness, paresthesias, abnormal gait Psychiatric: anxiety Medications and Allergies Allergies Allergy/AdvReac Type Severity Reaction Status Date / Time hydrochlorothiazide Allergy Anaphylaxis Verified 02/01/21 16:55 Home Medications Medication Instructions Recorded Confirmed Last Taken Type Ibuprofen [Motrin 400 MG tab] 400 mg PO TID 5 Days #15 tablet 08/22/20 02/03/21 01/29/21 Rx Baclofen 20 mg PO Q6H 02/03/21 02/03/21 01/29/21 History Gabapentin 300 mg PO Q6H #60 cap 02/03/21 Unknown Rx Losartan Potassium 100 mg PO QHS #30 02/03/21 Unknown Rx Metoprolol Xl [Metoprolol 25 mg PO QHS #30 02/03/21 Unknown Rx SUCCINATE ER TAB] NIFEdipine [Nifedipine ER] 30 mg PO QHS #30 02/03/21 Unknown Rx Pregabalin 50 mg PO BID #60 capsule 02/03/21 Unknown Rx Primidone [Mysoline] 50 mg PO Q6H #120 02/03/21 Unknown Rx Promethazine [Phenergan] 25 mg PO QID PRN #12 02/03/21 Unknown Rx Sertraline [Zoloft] 100 mg PO QDAY 30 Days #30 02/03/21 Unknown Rx oxyCODONE /ACETAMINOPHEN [Percocet 1 tab PO Q6H PRN #15 tab 02/03/21 Unknown Rx 5/325 mg] tiZANidine [Zanaflex 4mg TAB] 4 mg PO BID #30 02/03/21 Unknown Rx Exam - Constitutional Vitals: Temp Pulse Resp BP Pulse Ox 99.0 F 87 18 150/90 98 03/21/21 12:02 03/21/21 12:02 03/21/21 12:02 03/21/21 12:02 03/21/21 12:02 General appearance: Present: no acute distress, well-nourished - EENT Eyes: Present: PERRL ENT: hearing intact, clear oral mucosa - Neck Neck: Present: supple, normal ROM - Respiratory Respiratory effort: normal Respiratory: bilateral: CTA - Cardiovascular Heart rate: 78 Rhythm: regular Heart Sounds: Present: S1 & S2. Absent: rub, click - Extremities Extremities: pulses symmetrical, No edema Peripheral Pulses: within normal limits - Abdominal General gastrointestinal: Present: soft, non-tender, non-distended, normal bowel sounds Female genitourinary: Present: normal - Integumentary Integumentary: Present: clear, warm, dry - Musculoskeletal Musculoskeletal: generalized weakness, other (Lower extremity weakness with power of 3/5 power) - Psychiatric Psychiatric: appropriate mood/affect, intact judgment & insight - Neurologic Neurologic: CNII-XII intact, focal deficits (Lower extremity weakness with power of 3/5 power), moves all extremities, other (Unable to walk secondary to lower extremity weakness used to walk with a walker for the last 2 weeks) Results - Labs CBC & Chem 7: 03/22/21 05:58 03/22/21 05:58 Labs: Laboratory Last Values WBC 8.2 K/mm3 (4.5-11.0) 03/21/21 15:02 RBC 3.60 M/mm3 (3.65-5.03) L 03/21/21 15:02 Hgb 10.9 gm/dl (10.1-14.3) 03/21/21 15:02 Hct 32.8 % (30.3-42.9) 03/21/21 15:02 MCV 91 fl (79-97) 03/21/21 15:02 MCH 30 pg (28-32) 03/21/21 15:02 MCHC 33 % (30-34) 03/21/21 15:02 RDW 15.3 % (13.2-15.2) H 03/21/21 15:02 Plt Count 210 K/mm3 (140-440) 03/21/21 15:02 Lymph % (Auto) 31.1 % (13.4-35.0) 03/21/21 15:02 [place] % (Auto) 7.4 % (0.0-7.3) H 03/21/21 15:02 Eos % (Auto) 3.2 % (0.0-4.3) 03/21/21 15:02 Baso % (Auto) 0.3 % (0.0-1.8) 03/21/21 15:02 Lymph # (Auto) 2.6 K/mm3 (1.2-5.4) 03/21/21 15:02 [place] # (Auto) 0.6 K/mm3 (0.0-0.8) 03/21/21 15:02 Eos # (Auto) 0.3 K/mm3 (0.0-0.4) 03/21/21 15:02 Baso # (Auto) 0.0 K/mm3 (0.0-0.1) 03/21/21 15:02 Seg Neutrophils % 58.0 % (40.0-70.0) 03/21/21 15:02 Seg Neutrophils # 4.8 K/mm3 (1.8-7.7) 03/21/21 15:02 ESR 49 mm/Hr (0-20) 03/21/21 15:02 PT 13.9 Sec. (12.2-14.9) 03/21/21 15:02 INR 1.02 (0.87-1.13) 03/21/21 15:02 Sodium 144 mmol/L (137-145) 03/21/21 15:02 Potassium 3.8 mmol/L (3.6-5.0) 03/21/21 15:02 Chloride 107.0 mmol/L (98-107) 03/21/21 15:02 Carbon Dioxide 23 mmol/L (22-30) 03/21/21 15:02 Anion Gap 18 mmol/L 03/21/21 15:02 BUN 16 mg/dL (7-17) 03/21/21 15:02 Creatinine 1.2 mg/dL (0.6-1.2) 03/21/21 15:02 Estimated GFR 56 ml/min 03/21/21 15:02 BUN/Creatinine Ratio 13 % 03/21/21 15:02 Glucose 98 mg/dL (65-100) 03/21/21 15:02 Calcium 9.5 mg/dL (8.4-10.2) 03/21/21 15:02 Magnesium 1.90 mg/dL (1.7-2.3) 03/21/21 15:02 Total Bilirubin 0.40 mg/dL (0.1-1.2) 03/21/21 15:02 AST 11 units/L (5-40) 03/21/21 15:02 ALT 6 units/L (7-56) L 03/21/21 15:02 Alkaline Phosphatase 56 units/L (35-129) 03/21/21 15:02 Total Creatine Kinase 82 units/L (30-135) 03/21/21 15:02 C-Reactive Protein 1.00 mg/dL (0.00-1.30) 03/21/21 15:02 NT-Pro-B Natriuret Pep 46.66 pg/mL (0-900) 03/21/21 15:02 Total Protein 7.8 g/dL (6.3-8.2) 03/21/21 15:02 Albumin 3.7 g/dL (3.9-5) L 03/21/21 15:02 Albumin/Globulin Ratio 0.9 % 03/21/21 15:02 TSH 1.250 mlU/mL (0.270-4.200) 03/21/21 15:02 Short CBC 03/21/21 03/22/21 Range/Units 15:02 05:58 WBC 8.2 7.2 (4.5-11.0) K/mm3 Hgb 10.9 10.7 (10.1-14.3) gm/dl Hct 32.8 32.5 (30.3-42.9) % Plt Count 210 213 (140-440) K/mm3 BMP 03/21/21 03/22/21 15:02 05:58 Sodium 144 142 Potassium 3.8 4.1 Chloride 107.0 106.0 Carbon Dioxide 23 26 BUN 16 15 Creatinine 1.2 1.2 Glucose 98 94 Calcium 9.5 9.4 Cardiac Enzymes 03/21/21 Range/Units 15:02 Total Creatine Kinase 82 (30-135) units/L Liver Function 03/21/21 03/22/21 Range/Units 15:02 05:58 Total Bilirubin 0.40 0.40 (0.1-1.2) mg/dL AST 11 12 (5-40) units/L ALT 6 L 6 L (7-56) units/L Alkaline Phosphatase 56 56 (35-129) units/L Albumin 3.7 L 3.6 L (3.9-5) g/dL - Imaging and Cardiology Imaging and Cardiology: Lumbar spine MRI Multilevel disc desiccation noted Degenerative changes of the lumbar spine most marked findings appear to be at L4-L5 and L3-L4. Please correlate with dermatomal distribution of patient's symptoms at present. Assessment and Plan Advance Directives: Yes (Full code) VTE prophylaxis?: Chemical Plan of care discussed with patient/family: Yes - Patient Problems (1) Paraparesis of both lower limbs Current Visit: Yes Status: Acute Plan to address problem: Possible MS flare Started on IV Solu-Medrol at 1 g every 24 hours Neurology consult requested Defer to neurology regarding stopping the IV Solu-Medrol and continue with IV Solu-Medrol (2) Hypertension Current Visit: Yes Status: Chronic Qualifiers: Hypertension type: primary hypertension Qualified Code(s): I10 - Essential (primary) hypertension Plan to address problem: Review antihypertensives and adjust medications (3) Peripheral neuropathy Current Visit: Yes Status: Chronic Qualifiers: Peripheral neuropathy type: polyneuropathy, unspecified Qualified Code(s): G62.9 - Polyneuropathy, unspecified Plan to address problem: Continue Lyrica (4) Depression Current Visit: Yes Status: Chronic Qualifiers: Depression Type: unspecified Qualified Code(s): F32.A - Depression, unspecified Plan to address problem: Renew antidepressants from home (5) DVT prophylaxis Current Visit: No Status: Acute Plan to address problem: On anticoagulation and GI prophylaxis
[2021-03-21] MEDS ORDERED: methylPREDNISolone Sod Succinate 125 MG/2 ML INJ IV SCH (22:00)
[2021-03-22] MEDS: HYDROmorphone 1 MG/1 ML INJ IV PRN ×2 (03:24→17:18)
[2021-03-22] MEDS: SODIUM CHLORIDE 0.9% 1000 ML 1,000 ML IV SCH (04:20)
[2021-03-22] MEDS: FAMOTIDINE 20 MG/2 ML INJ IV SCH ×3 (04:20→23:48)
[2021-03-22] MEDS: BACLOFEN 10 MG TAB PO SCH ×5 (04:21→23:53)
[2021-03-22] MEDS: GABAPENTIN 300 MG CAP PO SCH ×5 (04:21→23:51)
[2021-03-22] MEDS: HEPARIN 5,000 UNIT/1 ML VIAL SUB-Q SCH ×3 (04:28→23:48)
[2021-03-22] MEDS: PRIMIDONE 50 MG TAB PO SCH ×5 (04:39→22:00)
[2021-03-22] MEDS: NIFEdipine XL 30 MG TAB PO SCH ×2 (04:50→23:51)
[2021-03-22] MEDS: METOPROLOL SUCCINATE XL 25 MG TAB PO SCH ×2 (04:50→23:51)
[2021-03-22] MEDS: MORPHINE 2 MG/1 ML INJ IV PRN (04:57)
[2021-03-22 06:23] LABS: Basophils # (Auto) 0.1 K/mm3 (0.0-0.1); Basophils % (Auto) 0.7 % (0.0-1.8); Eosinophils # (Auto) 0.3 K/mm3 (0.0-0.4); Eosinophils % (Auto) 4.3 % (0.0-4.3); Hematocrit 32.5 % (30.3-42.9); Hemoglobin 10.7 gm/dl (10.1-14.3); Lymphocytes # (Auto) 2.2 K/mm3 (1.2-5.4); Lymphocytes % (Auto) 30.6 % (13.4-35.0); Mean Corpuscular HGB Conc 33 % (30-34); Mean Corpuscular Volume 91 fl (79-97); Monocytes # (Auto) 0.7 K/mm3 (0.0-0.8); Platelet Count 213 K/mm3 (140-440); Red Blood Count 3.57 M/mm3 (3.65-5.03); Red Cell Distribution Width 15.1 % (13.2-15.2)
[2021-03-22 06:45] LABS: Albumin 3.6 g/dL (3.9-5); Calcium 9.4 mg/dL (8.4-10.2)
[2021-03-22] MEDS: SERTRALINE 100 MG TAB PO SCH (09:33)
--- NOTE | 2021-03-22 09:35 | Consultation ---
History of Present Illness Consult date: 03/22/21 Reason for Consult: Increse lower extremities weakness one week after COVID-19 Vaccin,Hx of MS History of present illness: Bilateral lower extremity weakness for 1 week History of present illness: 60-year-old female with history of hypertension, peripheral neuropathy and depression and chronic pain comes in for increasing weakness of both lower extremity for last 1 or 2 weeks but more so for the last 1 week. Patient was walking normally 2 weeks before and now she can walk only with the help of her walker. Patient was told she is with hx of MS in 2008 after falling at work and having right knee surgery but never been placed on medication she denied any numbness , or weakness before until last week , denied bladder difficulty . Patient has received Covid vaccination 1 week ago and attributes her lower e xtremity weakness to the Covid vaccine. Patient has 3/5 power in both lower extremities on initial evaluation in ER today No loss of sensation she is 0-1 /5 lower extremities today with decrease sensation up to umbilicus bilateral with absent reflexes . . - Past Medical History --Previous Medical History?: Yes --Hypertension: Yes --Additional medical history: Esophageal diverticulum. neuropathy and MS. 2L O2 at night - Surgical History --Past Surgical History?: Yes --Cholecystectomy: Yes --Additional Surgical History: esopagal dilation x5. hysterectomy. right knee. incarerated hernia - Social History --Smoking Status: Never Smoker - Medications Home Medications: Home Medications Medication Instructions Recorded Confirmed Last Taken Type Ibuprofen [Motrin 400 MG tab] 400 mg PO TID 5 Days #15 tablet 08/22/20 02/03/21 01/29/21 Rx Baclofen 20 mg PO Q6H 02/03/21 02/03/21 01/29/21 History Gabapentin 300 mg PO Q6H #60 cap 02/03/21 Unknown Rx Losartan Potassium 100 mg PO QHS #30 02/03/21 Unknown Rx Metoprolol Xl [Metoprolol 25 mg PO QHS #30 02/03/21 Unknown Rx SUCCINATE ER TAB] NIFEdipine [Nifedipine ER] 30 mg PO QHS #30 02/03/21 Unknown Rx Pregabalin 50 mg PO BID #60 capsule 02/03/21 Unknown Rx Primidone [Mysoline] 50 mg PO Q6H #120 02/03/21 Unknown Rx Promethazine [Phenergan] 25 mg PO QID PRN #12 02/03/21 Unknown Rx Sertraline [Zoloft] 100 mg PO QDAY 30 Days #30 02/03/21 Unknown Rx oxyCODONE /ACETAMINOPHEN [Percocet 1 tab PO Q6H PRN #15 tab 02/03/21 Unknown Rx 5/325 mg] tiZANidine [Zanaflex 4mg TAB] 4 mg PO BID #30 02/03/21 Unknown Rx Review of Systems Constitutional: denies: diaphoresis, fever, malaise, weakness Eyes: denies: eye discharge ENT: denies: epistaxis Respiratory: denies: cough Cardiovascular: denies: chest pain Gastrointestinal: denies: abdominal pain Genitourinary: denies: dysuria Musculoskeletal: back pain, arthralgia, myalgia Neurological: weakness, numbness, paresthesias, abnormal gait Psychiatric: anxiety Medications and Allergies Allergies Allergy/AdvReac Type Severity Reaction Status Date / Time hydrochlorothiazide Allergy Anaphylaxis Verified 02/01/21 16:55 Home Medications Medication Instructions Recorded Confirmed Last Taken Type Ibuprofen [Motrin 400 MG tab] 400 mg PO TID 5 Days #15 tablet 08/22/20 02/03/21 01/29/21 Rx Baclofen 20 mg PO Q6H 02/03/21 02/03/21 01/29/21 History Gabapentin 300 mg PO Q6H #60 cap 02/03/21 Unknown Rx Losartan Potassium 100 mg PO QHS #30 02/03/21 Unknown Rx Metoprolol Xl [Metoprolol 25 mg PO QHS #30 02/03/21 Unknown Rx SUCCINATE ER TAB] NIFEdipine [Nifedipine ER] 30 mg PO QHS #30 02/03/21 Unknown Rx Pregabalin 50 mg PO BID #60 capsule 02/03/21 Unknown Rx Primidone [Mysoline] 50 mg PO Q6H #120 02/03/21 Unknown Rx Promethazine [Phenergan] 25 mg PO QID PRN #12 02/03/21 Unknown Rx Sertraline [Zoloft] 100 mg PO QDAY 30 Days #30 02/03/21 Unknown Rx oxyCODONE /ACETAMINOPHEN [Percocet 1 tab PO Q6H PRN #15 tab 02/03/21 Unknown Rx 5/325 mg] tiZANidine [Zanaflex 4mg TAB] 4 mg PO BID #30 02/03/21 Unknown Rx Medications and Allergies Allergies Allergy/AdvReac Type Severity Reaction Status Date / Time aspirin Allergy Anaphylaxis Verified 03/22/21 08:51 hydrochlorothiazide Allergy Anaphylaxis Verified 02/01/21 16:55 Home Medications Medication Instructions Recorded Confirmed Last Taken Type Ibuprofen [Motrin 400 MG tab] 400 mg PO TID 5 Days #15 tablet 08/22/20 02/03/21 01/29/21 Rx Baclofen 20 mg PO Q6H 02/03/21 02/03/21 01/29/21 History Gabapentin 300 mg PO Q6H #60 cap 02/03/21 Unknown Rx Losartan Potassium 100 mg PO QHS #30 02/03/21 Unknown Rx Metoprolol Xl [Metoprolol 25 mg PO QHS #30 02/03/21 Unknown Rx SUCCINATE ER TAB] NIFEdipine [Nifedipine ER] 30 mg PO QHS #30 02/03/21 Unknown Rx Pregabalin 50 mg PO BID #60 capsule 02/03/21 Unknown Rx Primidone [Mysoline] 50 mg PO Q6H #120 02/03/21 Unknown Rx Promethazine [Phenergan] 25 mg PO QID PRN #12 02/03/21 Unknown Rx Sertraline [Zoloft] 100 mg PO QDAY 30 Days #30 02/03/21 Unknown Rx oxyCODONE /ACETAMINOPHEN [Percocet 1 tab PO Q6H PRN #15 tab 02/03/21 Unknown Rx 5/325 mg] tiZANidine [Zanaflex 4mg TAB] 4 mg PO BID #30 02/03/21 Unknown Rx Active Meds: Active Medications Acetaminophen (Acetaminophen 325 Mg Tab) 650 mg PO Q4H PRN PRN Reason: Pain MILD(1-3)/Fever >100.5/ALEMAN Baclofen (Baclofen 10 Mg Tab) 20 mg PO Q6HR [facility] Last Admin: 03/22/21 06:15 Dose: Not Given Documented by: Famotidine (Famotidine 20 Mg/2 Ml Inj) 20 mg IV BID [facility] Last Admin: 03/22/21 09:33 Dose: 20 mg Documented by: Gabapentin (Gabapentin 300 Mg Cap) 300 mg PO Q6HR [facility] Last Admin: 03/22/21 06:15 Dose: Not Given Documented by: Heparin Sodium (Porcine) (Heparin 5,000 Unit/1 Ml Vial) 5,000 unit SUB-Q Q12HR [facility] Last Admin: 03/22/21 09:32 Dose: 5,000 unit Documented by: Hydromorphone HCl (Hydromorphone 1 Mg/1 Ml Inj) 0.5 mg IV Q3H PRN PRN Reason: Pain , Severe (7-10) Last Admin: 03/22/21 03:24 Dose: 0.5 mg Documented by: Sodium Chloride (Nacl 0.9% 1000 Ml) 1,000 mls @ 75 mls/hr IV DIRECT [facility] Last Admin: 03/22/21 04:20 Dose: 75 mls/hr Documented by: Losartan Potassium (Losartan 50 Mg Tab) 100 mg PO QHS [facility] Methylprednisolone Sodium Succinate (Methylprednisolone Sod Succinate 125 Mg/2 Ml Inj) 1 mg IV Q24H [facility] Metoclopramide HCl (Metoclopramide 10 Mg/2 Ml Inj) 10 mg IV Q6H PRN PRN Reason: Nausea And Vomiting Metoprolol Succinate (Metoprolol Succinate Xl 25 Mg Tab) 25 mg PO QHS [facility] Last Admin: 03/22/21 04:50 Dose: 25 mg Documented by: Morphine Sulfate (Morphine 2 Mg/1 Ml Inj) 2 mg IV Q4H PRN PRN Reason: Pain, Moderate (4-6) Last Admin: 03/22/21 04:57 Dose: 2 mg Documented by: Nifedipine (Nifedipine Xl 30 Mg Tab) 30 mg PO QHS [facility] Last Admin: 03/22/21 04:50 Dose: 30 mg Documented by: Ondansetron HCl (Ondansetron 4 Mg/2 Ml Inj) 4 mg IV Q8H PRN PRN Reason: Nausea And Vomiting Primidone (Primidone 50 Mg Tab) 50 mg PO Q6H [facility] Last Admin: 03/22/21 09:33 Dose: 50 mg Documented by: Promethazine HCl (Promethazine 25 Mg Tab) 25 mg PO QID PRN PRN Reason: Nausea Sertraline HCl (Sertraline 100 Mg Tab) 100 mg PO QDAY [facility] Last Admin: 03/22/21 09:33 Dose: 100 mg Documented by: Sodium Chloride (Sodium Chloride 0.9% 10 Ml Flush Syringe) 10 ml IV BID [facility] Last Admin: 03/22/21 09:33 Dose: 10 ml Documented by: Sodium Chloride (Sodium Chloride 0.9% 10 Ml Flush Syringe) 10 ml IV PRN PRN PRN Reason: LINE FLUSH Physical Examination - Vital Signs Vital Signs: Vital Signs Temp Pulse Resp BP Pulse Ox 99.0 F 87 18 150/90 98 03/21/21 12:02 03/21/21 12:02 03/21/21 12:02 03/21/21 12:02 03/21/21 12:02 - Constitutional General appearance: comfortable - EENT EENT: Present: PERRL, mucous membranes moist - Respiratory Respiratory: Present: chest non-tender, lungs clear, rhonchi - Cardiovascular Cardiovascular: Present: regular rate, normal S1, normal S2 Extremities: Present: no peripheral edema bilatateraly, no clubbing, cyanosis - Gastrointestinal Gastrointestinal: Present: normoactive bowel sounds - Integumentary Integumentary: Present: normal - Neurologic Cranial nerve examination: PERRL, EOMI, intact Speech examination: intact Detailed motor examination: other (upper is 4/5 with mild asterexsis, lower is 0-1/5 with absent reflexes and decrese pin sensation in lower to umbilicus level ) Results - Laboratory Findings CBC and BMP: 03/22/21 05:58 03/22/21 05:58 Abnormal Lab Findings: Abnormal Labs 03/21/21 03/21/21 03/22/21 15:02 15:02 05:58 RBC 3.60 L 3.57 L RDW 15.3 H [place] % (Auto) 7.4 H 9.0 H ALT 6 L Albumin 3.7 L 03/22/21 05:58 RBC RDW [place] % (Auto) ALT 6 L Albumin 3.6 L Assessment and Plan Assessment and Plan Advance Directives: Yes (Full code) VTE prophylaxis?: Chemical Plan of care discussed with patient/family: Yes - Patient Problems # Paraparesis of both lower limbs with progressive weakness over 1 week period -decrese sensation in lower to umbilicus level ? transverse mylitis can not be excluded -Hx of MS ?2008 no record available she is with no problem or medications for over 12 ys -but taking baclofen and neurontine to help with legs spasm !!! -Started on IV Solu-Medrol at 1 g every 24 hours -schadual for MRI with gd brain cervical and dorsal # Hypertension Review antihypertensives and adjust medications # Peripheral neuropathy -? hx of DM # Depression -Renew antidepressants from home # Morbid obesity # DVT prophylaxis -On anticoagulation and GI prophylaxis will follow after MRI is done -PT therapy evaluate -Foly catheter ? urinary retention
--- NOTE | 2021-03-22 11:48 | Electrocardiograph Report ---
[facility] Test Date: 2021-03-21 Test Time: 13:50:34 Pat Name: NILDA GRANT Department: Room: [facility] Gender: F Archival Studies Professor: CRISTOBAL : 1960 Requested By: CARRINGTON BARRAGAN Order Number: [id number] Reading MD: Alfredo Kirby Measurements Intervals [place] Rate: 81 P: 25 [place]: 182 QRS: -14 QRSD: 90 T: 26 QT: 407 QTc: 473 Interpretive Statements Sinus rhythm Low voltage, precordial leads Anterior Q waves, possibly due to LVH Compared to ECG 02/01/2021 22:11:23 Left ventricular hypertrophy now present Q waves now present Sinus tachycardia no longer present Electronically Signed On 03-22-2021 11:47:57 EDT by Alfredo Kirby
--- NOTE | 2021-03-22 11:56 | Progress Note ---
Assessment and Plan Assessment and plan: (1) Paraparesis of both lower limbs Current Visit: Yes Status: Acute Plan to address problem: Possible MS flare Started on IV Solu-Medrol at 1 g every 24 hours Neurology consult requested Defer to neurology regarding stopping the IV Solu-Medrol and continue with IV Solu-Medrol (2) Hypertension Current Visit: Yes Status: Chronic Qualifiers: Hypertension type: primary hypertension Qualified Code(s): I10 - Essential (primary) hypertension Plan to address problem: Review antihypertensives and adjust medications (3) Peripheral neuropathy Current Visit: Yes Status: Chronic Qualifiers: Peripheral neuropathy type: polyneuropathy, unspecified Qualified Code(s): G62.9 - Polyneuropathy, unspecified Plan to address problem: Continue Lyrica (4) Depression Current Visit: Yes Status: Chronic Qualifiers: Depression Type: unspecified Qualified Code(s): F32.A - Depression, unspecified Plan to address problem: Renew antidepressants from home (5) DVT prophylaxis Current Visit: No Status: Acute Plan to address problem: On anticoagulation and GI prophylaxis 03/22/21 Patient with history of multiple sclerosis, peripheral neuropathy presents with weakness both lower extremities. She says it happened same day she got Covid vaccine Mar 13. Patient seen by Neurology , ordered MRI Brain,spine. History Interval history: patient with MS presents with bilateral lower ext weakness Hospitalist Physical - Physical exam Narrative exam: Gen: Not in acute distress, lying in bed HEENT: Normocephalic, atraumatic Lungs: Clear to auscultation bilaterally, no wheeze Heart: S1 and S2 reg, no murmurs, rubs or gallop Abd:soft, non-tender, non distended, normal bowel sounds Ext: No edema, clubbing or cyanosis Neuro: Awake, alert, oriented X 3, weakness both lower ext - Constitutional Vitals: Temp Pulse Resp BP Pulse Ox 99.0 F 89 19 137/88 100 03/21/21 12:02 03/22/21 08:39 03/22/21 08:39 03/22/21 08:39 03/22/21 08:39 General appearance: Present: no acute distress, well-nourished Results - Labs CBC & Chem 7: 03/22/21 05:58 03/22/21 05:58 Labs: Laboratory Last Values WBC 7.2 K/mm3 (4.5-11.0) 03/22/21 05:58 RBC 3.57 M/mm3 (3.65-5.03) L 03/22/21 05:58 Hgb 10.7 gm/dl (10.1-14.3) 03/22/21 05:58 Hct 32.5 % (30.3-42.9) 03/22/21 05:58 MCV 91 fl (79-97) 03/22/21 05:58 MCH 30 pg (28-32) 03/22/21 05:58 MCHC 33 % (30-34) 03/22/21 05:58 RDW 15.1 % (13.2-15.2) 03/22/21 05:58 Plt Count 213 K/mm3 (140-440) 03/22/21 05:58 Lymph % (Auto) 30.6 % (13.4-35.0) 03/22/21 05:58 [place] % (Auto) 9.0 % (0.0-7.3) H 03/22/21 05:58 Eos % (Auto) 4.3 % (0.0-4.3) 03/22/21 05:58 Baso % (Auto) 0.7 % (0.0-1.8) 03/22/21 05:58 Lymph # (Auto) 2.2 K/mm3 (1.2-5.4) 03/22/21 05:58 [place] # (Auto) 0.7 K/mm3 (0.0-0.8) 03/22/21 05:58 Eos # (Auto) 0.3 K/mm3 (0.0-0.4) 03/22/21 05:58 Baso # (Auto) 0.1 K/mm3 (0.0-0.1) 03/22/21 05:58 Seg Neutrophils % 55.4 % (40.0-70.0) 03/22/21 05:58 Seg Neutrophils # 4.0 K/mm3 (1.8-7.7) 03/22/21 05:58 ESR 49 mm/Hr (0-20) 03/21/21 15:02 PT 13.9 Sec. (12.2-14.9) 03/21/21 15:02 INR 1.02 (0.87-1.13) 03/21/21 15:02 Sodium 142 mmol/L (137-145) 03/22/21 05:58 Potassium 4.1 mmol/L (3.6-5.0) 03/22/21 05:58 Chloride 106.0 mmol/L (98-107) 03/22/21 05:58 Carbon Dioxide 26 mmol/L (22-30) 03/22/21 05:58 Anion Gap 14 mmol/L 03/22/21 05:58 BUN 15 mg/dL (7-17) 03/22/21 05:58 Creatinine 1.2 mg/dL (0.6-1.2) 03/22/21 05:58 Estimated GFR 56 ml/min 03/22/21 05:58 BUN/Creatinine Ratio 13 % 03/22/21 05:58 Glucose 94 mg/dL (65-100) 03/22/21 05:58 Calcium 9.4 mg/dL (8.4-10.2) 03/22/21 05:58 Magnesium 1.90 mg/dL (1.7-2.3) 03/21/21 15:02 Total Bilirubin 0.40 mg/dL (0.1-1.2) 03/22/21 05:58 AST 12 units/L (5-40) 03/22/21 05:58 ALT 6 units/L (7-56) L 03/22/21 05:58 Alkaline Phosphatase 56 units/L (35-129) 03/22/21 05:58 Total Creatine Kinase 82 units/L (30-135) 03/21/21 15:02 C-Reactive Protein 1.00 mg/dL (0.00-1.30) 03/21/21 15:02 NT-Pro-B Natriuret Pep 46.66 pg/mL (0-900) 03/21/21 15:02 Total Protein 7.5 g/dL (6.3-8.2) 03/22/21 05:58 Albumin 3.6 g/dL (3.9-5) L 03/22/21 05:58 Albumin/Globulin Ratio 0.9 % 03/22/21 05:58 TSH 1.250 mlU/mL (0.270-4.200) 03/21/21 15:02 Active Medications - Current Medications Current Medications: Generic Name Dose Route Start Last Admin Trade Name Freq PRN Reason Stop Dose Admin Acetaminophen 650 mg 03/21/21 21:42 Acetaminophen 325 Mg Tab PO Q4H PRN Pain MILD(1-3)/Fever >100.5/ALEMAN Baclofen 20 mg 03/22/21 00:00 03/22/21 11:35 Baclofen 10 Mg Tab PO 20 mg Q6HR MARY Administration Famotidine 20 mg 03/21/21 22:00 03/22/21 09:33 Famotidine 20 Mg/2 Ml Inj IV 20 mg BID MARY Administration Gabapentin 300 mg 03/22/21 00:00 03/22/21 11:35 Gabapentin 300 Mg Cap PO 300 mg Q6HR MARY Administration Heparin Sodium (Porcine) 5,000 unit 03/21/21 22:00 03/22/21 09:32 Heparin 5,000 Unit/1 Ml Vial SUB-Q 5,000 unit Q12HR MARY Administration Hydromorphone HCl 0.5 mg 03/21/21 21:42 03/22/21 03:24 Hydromorphone 1 Mg/1 Ml Inj IV 0.5 mg Q3H PRN Administration Pain , Severe (7-10) Sodium Chloride 1,000 mls @ 75 mls/hr 03/21/21 21:45 03/22/21 04:20 Nacl 0.9% 1000 Ml IV 75 mls/hr DIRECT MARY Administration Losartan Potassium 100 mg 03/22/21 22:00 Losartan 50 Mg Tab PO QHS MARY Methylprednisolone Sodium Succinate 1 mg 03/21/21 22:00 Methylprednisolone Sod Succinate 125 Mg/2 Ml Inj IV Q24H MARY Metoclopramide HCl 10 mg 03/21/21 21:42 Metoclopramide 10 Mg/2 Ml Inj IV Q6H PRN Nausea And Vomiting Metoprolol Succinate 25 mg 03/21/21 22:00 03/22/21 04:50 Metoprolol Succinate Xl 25 Mg Tab PO 25 mg QHS MARY Administration Morphine Sulfate 2 mg 03/21/21 21:42 03/22/21 04:57 Morphine 2 Mg/1 Ml Inj IV 2 mg Q4H PRN Administration Pain, Moderate (4-6) Nifedipine 30 mg 03/21/21 22:00 03/22/21 04:50 Nifedipine Xl 30 Mg Tab PO 30 mg QHS MARY Administration Ondansetron HCl 4 mg 03/21/21 21:42 Ondansetron 4 Mg/2 Ml Inj IV Q8H PRN Nausea And Vomiting Primidone 50 mg 03/21/21 22:00 03/22/21 09:33 Primidone 50 Mg Tab PO 50 mg Q6H MARY Administration Promethazine HCl 25 mg 03/21/21 21:40 Promethazine 25 Mg Tab PO QID PRN Nausea Sertraline HCl 100 mg 03/22/21 10:00 03/22/21 09:33 Sertraline 100 Mg Tab PO 100 mg QDAY MARY Administration Sodium Chloride 10 ml 03/21/21 22:00 03/22/21 09:33 Sodium Chloride 0.9% 10 Ml Flush Syringe IV 10 ml BID MARY Administration Sodium Chloride 10 ml 03/21/21 21:42 Sodium Chloride 0.9% 10 Ml Flush Syringe IV PRN PRN LINE FLUSH
[2021-03-22] MEDS: LOSARTAN 50 MG TAB PO SCH (23:53)
[2021-03-23] MEDS: HYDROmorphone 1 MG/1 ML INJ IV PRN ×2 (00:20→22:40)
[2021-03-23] MEDS: PRIMIDONE 50 MG TAB PO SCH ×5 (04:55→22:30)
[2021-03-23] MEDS: BACLOFEN 10 MG TAB PO SCH ×4 (06:09→23:51)
[2021-03-23] MEDS: GABAPENTIN 300 MG CAP PO SCH ×4 (06:09→23:51)
[2021-03-23] MEDS: MORPHINE 2 MG/1 ML INJ IV PRN ×3 (08:33→18:30)
[2021-03-23] MEDS ORDERED: LORazepam 2 MG/ML VIAL IV SCH (09:45)
[2021-03-23] MEDS: FAMOTIDINE 20 MG TAB PO SCH ×2 (10:38→22:18)
[2021-03-23] MEDS: HEPARIN 5,000 UNIT/1 ML VIAL SUB-Q SCH ×2 (10:42→22:18)
[2021-03-23] MEDS ORDERED: FLU VACC QUAD 2021-22(6MOS UP)/PF 60 MCG/0.5 ML SYRINGE IM ONE (12:00)
[2021-03-23] MEDS ORDERED: PNEUMOCOCCAL 23 Valent 0.5 ML VIAL IM ONE (12:00)
[2021-03-23] MEDS: methylPREDNISolone Sod Suc 1,000 MG in SODIUM CHLORIDE 0.9% 250ML 250 ML IV SCH (12:37)
[2021-03-23] MEDS: SERTRALINE 100 MG TAB PO SCH (12:38)
--- NOTE | 2021-03-23 12:53 | Progress Note ---
Assessment and Plan Assessment and Plan Advance Directives: Yes (Full code) VTE prophylaxis?: Chemical Plan of care discussed with patient/family: Yes - Patient Problems # Paraparesis of both lower limbs with progressive weakness over 1 week period -decrese sensation in lower to umbilicus level ? transverse mylitis can not be excluded -Hx of MS ?2008 no record available she is with no problem or medications for over 12 ys -but taking baclofen and neurontine to help with legs spasm !!! -Started on IV Solu-Medrol at 1 g every 24 hours treat for X4 days -schadual for MRI with gd brain cervical and dorsal pt. refused MRI !!! -pt. requesting pain medication to help with back pain -increse sleepiness during the day related to med. as well as possible sleep apnea # Hypertension Review antihypertensives and adjust medications # Peripheral neuropathy -? hx of DM # Depression -Renew antidepressants from home # Morbid obesity # DVT prophylaxis -On anticoagulation and GI prophylaxis NICHOLAS -PT therapy evaluate -Foly catheter ? urinary retention - Avoid pain medications -Consider sleep study as out pt. -Try to loss weight will sign off Subjective Date of service: 03/23/21 Principal diagnosis: weakness LES and request pain medications !!! Interval history: she is sleepy most of the day refused MRI denied bladder difficulty still complains of LES weakness according to her she can not move requesting pain medication to help with back pain !!! Objective - Vital Sign Vital Signs - 12hr 03/23/21 03/23/21 03/23/21 01:49 03:25 07:26 Temperature 98.8 F 98.7 F Pulse Rate 80 78 Respiratory 18 18 Rate Blood Pressure 157/92 152/81 O2 Sat by Pulse 96 Oximetry - General Apperance Constitutional: comfortable - EENT EENT: PERRL, mucous membranes moist - Respiratory Respiratory: chest non-tender, lungs clear, rhonchi - Cardiovascular Cardiovascular: regular rate, normal S1, normal S2 Extremities: no peripheral edema bilat - Gastrointestinal Gastrointestinal: normoactive bowel sounds - Integumentary Integumentary: normal - Neurologic Cranial nerve examination: PERRL, EOMI, intact Speech examination: intact (weakness LES with sensory level at T6th.,reflexes are suppressed) - Laboratory Findings CBC and BMP: 03/22/21 05:58 03/22/21 05:58 Abnormal Lab Findings: Abnormal Labs 03/21/21 03/21/21 03/22/21 15:02 15:02 05:58 RBC 3.60 L 3.57 L RDW 15.3 H [place] % (Auto) 7.4 H 9.0 H ALT 6 L Albumin 3.7 L 03/22/21 05:58 RBC RDW [place] % (Auto) ALT 6 L Albumin 3.6 L
--- NOTE | 2021-03-23 14:39 | Progress Note ---
Assessment and Plan Assessment and plan: Paraparesis of both lower limbs with associated weakness. Possible MS flare Started on IV Solu-Medrol at 1 g every 24 hours for 5 days. Neurology input appreciated. MRI of the lumbar spine showed DJD. MRI of the cervical spine is pending. She notes that she is claustrophobic and was reluctant about the offer for IV Ativan before the MRI. PT/OT evaluation. Low back pain most likely DJD. Continue current analgesic. Hypertension Uncontrolled. Increase Procardia XL. Continue the current medication. Peripheral neuropathy Continue Lyrica Depression Chronic. Continue antidepressants. Constipation. Continue. Laxative. DVT prophylaxis on subcu heparin. History Interval history: History of low back pain extending to bilateral lower extremity and also bilateral lower extremity weakness. Has constipation. Hospitalist Physical - Constitutional Vitals: Temp Pulse Resp BP Pulse Ox 98.7 F 78 18 152/81 96 03/23/21 07:26 03/23/21 03:25 03/23/21 07:26 03/23/21 07:26 03/23/21 03:25 General appearance: Present: no acute distress, well-nourished - EENT Eyes: Present: PERRL, EOM intact ENT: hearing intact - Neck Neck: Present: supple, normal ROM - Respiratory Respiratory effort: normal Respiratory: bilateral: CTA - Cardiovascular Rhythm: regular Heart Sounds: Present: S1 & S2 - Extremities Extremities: No edema - Abdominal General gastrointestinal: soft, non-tender, non-distended, normal bowel sounds - Integumentary Integumentary: Present: clear, warm, dry - Psychiatric Psychiatric: appropriate mood/affect - Neurologic Neurologic: CNII-XII intact, other (Bilateral lower extremity weakness with strength of 0/5.) Results - Labs CBC & Chem 7: 03/22/21 05:58 03/22/21 05:58 Labs: Laboratory Last Values WBC 7.2 K/mm3 (4.5-11.0) 03/22/21 05:58 RBC 3.57 M/mm3 (3.65-5.03) L 03/22/21 05:58 Hgb 10.7 gm/dl (10.1-14.3) 03/22/21 05:58 Hct 32.5 % (30.3-42.9) 03/22/21 05:58 MCV 91 fl (79-97) 03/22/21 05:58 MCH 30 pg (28-32) 03/22/21 05:58 MCHC 33 % (30-34) 03/22/21 05:58 RDW 15.1 % (13.2-15.2) 03/22/21 05:58 Plt Count 213 K/mm3 (140-440) 03/22/21 05:58 Lymph % (Auto) 30.6 % (13.4-35.0) 03/22/21 05:58 [place] % (Auto) 9.0 % (0.0-7.3) H 03/22/21 05:58 Eos % (Auto) 4.3 % (0.0-4.3) 03/22/21 05:58 Baso % (Auto) 0.7 % (0.0-1.8) 03/22/21 05:58 Lymph # (Auto) 2.2 K/mm3 (1.2-5.4) 03/22/21 05:58 [place] # (Auto) 0.7 K/mm3 (0.0-0.8) 03/22/21 05:58 Eos # (Auto) 0.3 K/mm3 (0.0-0.4) 03/22/21 05:58 Baso # (Auto) 0.1 K/mm3 (0.0-0.1) 03/22/21 05:58 Seg Neutrophils % 55.4 % (40.0-70.0) 03/22/21 05:58 Seg Neutrophils # 4.0 K/mm3 (1.8-7.7) 03/22/21 05:58 ESR 49 mm/Hr (0-20) 03/21/21 15:02 PT 13.9 Sec. (12.2-14.9) 03/21/21 15:02 INR 1.02 (0.87-1.13) 03/21/21 15:02 Sodium 142 mmol/L (137-145) 03/22/21 05:58 Potassium 4.1 mmol/L (3.6-5.0) 03/22/21 05:58 Chloride 106.0 mmol/L (98-107) 03/22/21 05:58 Carbon Dioxide 26 mmol/L (22-30) 03/22/21 05:58 Anion Gap 14 mmol/L 03/22/21 05:58 BUN 15 mg/dL (7-17) 03/22/21 05:58 Creatinine 1.2 mg/dL (0.6-1.2) 03/22/21 05:58 Estimated GFR 56 ml/min 03/22/21 05:58 BUN/Creatinine Ratio 13 % 03/22/21 05:58 Glucose 94 mg/dL (65-100) 03/22/21 05:58 Calcium 9.4 mg/dL (8.4-10.2) 03/22/21 05:58 Magnesium 1.90 mg/dL (1.7-2.3) 03/21/21 15:02 Total Bilirubin 0.40 mg/dL (0.1-1.2) 03/22/21 05:58 AST 12 units/L (5-40) 03/22/21 05:58 ALT 6 units/L (7-56) L 03/22/21 05:58 Alkaline Phosphatase 56 units/L (35-129) 03/22/21 05:58 Total Creatine Kinase 82 units/L (30-135) 03/21/21 15:02 C-Reactive Protein 1.00 mg/dL (0.00-1.30) 03/21/21 15:02 NT-Pro-B Natriuret Pep 46.66 pg/mL (0-900) 03/21/21 15:02 Total Protein 7.5 g/dL (6.3-8.2) 03/22/21 05:58 Albumin 3.6 g/dL (3.9-5) L 03/22/21 05:58 Albumin/Globulin Ratio 0.9 % 03/22/21 05:58 TSH 1.250 mlU/mL (0.270-4.200) 03/21/21 15:02 Chau/IV: Voiding Method External Female Catheter Active Medications - Current Medications Current Medications: Generic Name Dose Route Start Last Admin Trade Name Freq PRN Reason Stop Dose Admin Acetaminophen 650 mg 03/21/21 21:42 Acetaminophen 325 Mg Tab PO Q4H PRN Pain MILD(1-3)/Fever >100.5/ALEMAN Baclofen 20 mg 03/22/21 00:00 03/23/21 10:38 Baclofen 10 Mg Tab PO 20 mg Q6HR MARY Administration Famotidine 20 mg 03/23/21 10:00 03/23/21 10:38 Famotidine 20 Mg Tab PO 20 mg BID MARY Administration Gabapentin 300 mg 03/22/21 00:00 03/23/21 10:38 Gabapentin 300 Mg Cap PO 300 mg Q6HR MARY Administration Heparin Sodium (Porcine) 5,000 unit 03/21/21 22:00 03/23/21 10:42 Heparin 5,000 Unit/1 Ml Vial SUB-Q 5,000 unit Q12HR MARY Administration Hydromorphone HCl 0.5 mg 03/21/21 21:42 03/23/21 00:20 Hydromorphone 1 Mg/1 Ml Inj IV 0.5 mg Q3H PRN Administration Pain , Severe (7-10) Sodium Chloride 1,000 mls @ 75 mls/hr 03/21/21 21:45 03/22/21 04:20 Nacl 0.9% 1000 Ml IV 75 mls/hr DIRECT MARY Administration Methylprednisolone Sodium 250 mls @ 250 mls/hr 03/23/21 11:00 Succinate 1,000 mg/ Sodium IV 03/27/21 11:59 Chloride Q24H MARY Losartan Potassium 100 mg 03/22/21 22:00 03/22/21 23:53 Losartan 50 Mg Tab PO 100 mg QHS MARY Administration Metoclopramide HCl 10 mg 03/21/21 21:42 Metoclopramide 10 Mg/2 Ml Inj IV Q6H PRN Nausea And Vomiting Metoprolol Succinate 25 mg 03/21/21 22:00 03/22/21 23:51 Metoprolol Succinate Xl 25 Mg Tab PO 25 mg QHS MARY Administration Morphine Sulfate 2 mg 03/21/21 21:42 03/23/21 14:13 Morphine 2 Mg/1 Ml Inj IV 2 mg Q4H PRN Administration Pain, Moderate (4-6) Nifedipine 30 mg 03/21/21 22:00 03/22/21 23:51 Nifedipine Xl 30 Mg Tab PO 30 mg QHS MARY Administration Ondansetron HCl 4 mg 03/21/21 21:42 03/22/21 17:18 Ondansetron 4 Mg/2 Ml Inj IV 4 mg Q8H PRN Administration Nausea And Vomiting Primidone 50 mg 03/21/21 22:00 03/23/21 12:04 Primidone 50 Mg Tab PO Not Given Q6H MARY Promethazine HCl 25 mg 03/21/21 21:40 Promethazine 25 Mg Tab PO QID PRN Nausea Sertraline HCl 100 mg 03/22/21 10:00 03/23/21 12:38 Sertraline 100 Mg Tab PO 100 mg QDAY MARY Administration Sodium Chloride 10 ml 03/21/21 22:00 03/23/21 10:39 Sodium Chloride 0.9% 10 Ml Flush Syringe IV 10 ml BID MARY Administration Sodium Chloride 10 ml 03/21/21 21:42 Sodium Chloride 0.9% 10 Ml Flush Syringe IV PRN PRN LINE FLUSH
[2021-03-23] MEDS ORDERED: NIFEdipine XL 30 MG TAB PO SCH (15:00)
[2021-03-23] MEDS: METOPROLOL SUCCINATE XL 25 MG TAB PO SCH (22:18)
[2021-03-23] MEDS: NIFEdipine XL 30 MG TAB PO SCH (22:18)
[2021-03-23] MEDS: LOSARTAN 50 MG TAB PO SCH (22:18)
[2021-03-23] MEDS: SODIUM CHLORIDE 0.9% 1000 ML 1,000 ML IV SCH (22:37)
[2021-03-24] MEDS: PRIMIDONE 50 MG TAB PO SCH ×4 (04:00→22:00)
[2021-03-24] MEDS: BACLOFEN 10 MG TAB PO SCH ×3 (05:46→18:02)
[2021-03-24] MEDS: GABAPENTIN 300 MG CAP PO SCH ×3 (05:46→18:03)
--- NOTE | 2021-03-24 08:59 | Progress Note ---
Assessment and Plan Assessment and plan: Paraparesis of both lower limbs with associated weakness. Possible MS flare Started on IV Solu-Medrol at 1 g every 24 hours for 5 days. Neurology input appreciated. MRI of the lumbar spine showed DJD. MRI of the cervical spine is pending. Radiologist noted unsuccessful attempt to do MRI exam, patient in extreme pain and unable to lay flat even for a short period of time,patient was given Ativan prior to exam and will reattempt today. Will adjust patient's analgesic. PT has recommended subacute rehab. Low back pain most likely DJD. Pain is uncontrolled. Will discontinue as needed morphine. Change Dilaudid to 1 mg every 3 hours as needed. Start Lortab 5 mg every 4 hours as needed. Hypertension Controlled. Continue the current medication. Peripheral neuropathy Continue Lyrica Depression Chronic. Continue antidepressants. Constipation. Possibly related to pain and analgesic. Continue laxative. Acute urinary retention. Bladder scan was about 650. Will straight cath. If further retention, patient may require Chau catheter placement. DVT prophylaxis on subcu heparin. Disposition: Pending MRI of the cervical spine. History Interval history: Still severe low back pain which is uncontrolled by current analgesic. Was zac ble to lay flat for MRI yesterday due to severe pain despite receiving Ativan. Still bilateral lower extremity weakness. Feels she has edema in bilateral feet. Still constipation. Has not passed urine since last night. No fever or chills. Hospitalist Physical - Constitutional Vitals: Temp Pulse Resp BP Pulse Ox 98.0 F 85 20 141/77 95 03/24/21 04:25 03/24/21 04:25 03/24/21 04:25 03/24/21 04:25 03/24/21 04:25 General appearance: Present: no acute distress, well-nourished - EENT Eyes: Present: PERRL, EOM intact ENT: hearing intact - Neck Neck: Present: supple, normal ROM - Respiratory Respiratory effort: normal - Cardiovascular Rhythm: regular Heart Sounds: Present: S1 & S2 - Extremities Extremities: No edema - Abdominal General gastrointestinal: soft, non-tender, non-distended, normal bowel sounds - Integumentary Integumentary: Present: warm, dry - Psychiatric Psychiatric: appropriate mood/affect - Neurologic Neurologic: other (Bilateral lower extremity weakness with strength of 0/5.) Results - Labs CBC & Chem 7: 10/06/21 05:58 03/22/21 05:58 Labs: Laboratory Last Values WBC 7.2 K/mm3 (4.5-11.0) 03/22/21 05:58 RBC 3.57 M/mm3 (3.65-5.03) L 03/22/21 05:58 Hgb 10.7 gm/dl (10.1-14.3) 03/22/21 05:58 Hct 32.5 % (30.3-42.9) 03/22/21 05:58 MCV 91 fl (79-97) 03/22/21 05:58 MCH 30 pg (28-32) 03/22/21 05:58 MCHC 33 % (30-34) 03/22/21 05:58 RDW 15.1 % (13.2-15.2) 03/22/21 05:58 Plt Count 213 K/mm3 (140-440) 03/22/21 05:58 Lymph % (Auto) 30.6 % (13.4-35.0) 03/22/21 05:58 [place] % (Auto) 9.0 % (0.0-7.3) H 03/22/21 05:58 Eos % (Auto) 4.3 % (0.0-4.3) 03/22/21 05:58 Baso % (Auto) 0.7 % (0.0-1.8) 03/22/21 05:58 Lymph # (Auto) 2.2 K/mm3 (1.2-5.4) 03/22/21 05:58 [place] # (Auto) 0.7 K/mm3 (0.0-0.8) 03/22/21 05:58 Eos # (Auto) 0.3 K/mm3 (0.0-0.4) 03/22/21 05:58 Baso # (Auto) 0.1 K/mm3 (0.0-0.1) 03/22/21 05:58 Seg Neutrophils % 55.4 % (40.0-70.0) 03/22/21 05:58 Seg Neutrophils # 4.0 K/mm3 (1.8-7.7) 03/22/21 05:58 ESR 49 mm/Hr (0-20) 03/21/21 15:02 PT 13.9 Sec. (12.2-14.9) 03/21/21 15:02 INR 1.02 (0.87-1.13) 03/21/21 15:02 Sodium 142 mmol/L (137-145) 03/22/21 05:58 Potassium 4.1 mmol/L (3.6-5.0) 03/22/21 05:58 Chloride 106.0 mmol/L (98-107) 03/22/21 05:58 Carbon Dioxide 26 mmol/L (22-30) 03/22/21 05:58 Anion Gap 14 mmol/L 03/22/21 05:58 BUN 15 mg/dL (7-17) 03/22/21 05:58 Creatinine 1.2 mg/dL (0.6-1.2) 03/22/21 05:58 Estimated GFR 56 ml/min 03/22/21 05:58 BUN/Creatinine Ratio 13 % 03/22/21 05:58 Glucose 94 mg/dL (65-100) 03/22/21 05:58 Calcium 9.4 mg/dL (8.4-10.2) 03/22/21 05:58 Magnesium 1.90 mg/dL (1.7-2.3) 03/21/21 15:02 Total Bilirubin 0.40 mg/dL (0.1-1.2) 03/22/21 05:58 AST 12 units/L (5-40) 03/22/21 05:58 ALT 6 units/L (7-56) L 03/22/21 05:58 Alkaline Phosphatase 56 units/L (35-129) 03/22/21 05:58 Total Creatine Kinase 82 units/L (30-135) 03/21/21 15:02 C-Reactive Protein 1.00 mg/dL (0.00-1.30) 03/21/21 15:02 NT-Pro-B Natriuret Pep 46.66 pg/mL (0-900) 03/21/21 15:02 Total Protein 7.5 g/dL (6.3-8.2) 03/22/21 05:58 Albumin 3.6 g/dL (3.9-5) L 03/22/21 05:58 Albumin/Globulin Ratio 0.9 % 03/22/21 05:58 TSH 1.250 mlU/mL (0.270-4.200) 03/21/21 15:02 Nasal Screen MRSA (PCR) Negative (Negative) 03/23/21 04:30 Chau/IV: Voiding Method External Female Catheter Active Medications - Current Medications Current Medications: Generic Name Dose Route Start Last Admin Trade Name Freq PRN Reason Stop Dose Admin Acetaminophen 650 mg 03/21/21 21:42 Acetaminophen 325 Mg Tab PO Q4H PRN Pain MILD(1-3)/Fever >100.5/ALEMAN Baclofen 20 mg 03/22/21 00:00 03/24/21 05:46 Baclofen 10 Mg Tab PO 20 mg Q6HR MARY Administration Famotidine 20 mg 03/23/21 10:00 03/23/21 22:18 Famotidine 20 Mg Tab PO 20 mg BID MARY Administration Gabapentin 300 mg 03/22/21 00:00 03/24/21 05:46 Gabapentin 300 Mg Cap PO 300 mg Q6HR MARY Administration Heparin Sodium (Porcine) 5,000 unit 03/21/21 22:00 03/23/21 22:18 Heparin 5,000 Unit/1 Ml Vial SUB-Q 5,000 unit Q12HR MARY Administration Hydromorphone HCl 0.5 mg 03/21/21 21:42 03/23/21 22:40 Hydromorphone 1 Mg/1 Ml Inj IV 0.5 mg Q3H PRN Administration Pain , Severe (7-10) Sodium Chloride 1,000 mls @ 75 mls/hr 03/21/21 21:45 03/23/21 22:37 Nacl 0.9% 1000 Ml IV 75 mls/hr DIRECT MARY Administration Methylprednisolone Sodium 250 mls @ 250 mls/hr 03/23/21 11:00 03/23/21 12:37 Succinate 1,000 mg/ Sodium IV 03/27/21 11:59 250 mls/hr Chloride Q24H MARY Administration Losartan Potassium 100 mg 03/22/21 22:00 03/23/21 22:18 Losartan 50 Mg Tab PO 100 mg QHS MARY Administration Metoclopramide HCl 10 mg 03/21/21 21:42 Metoclopramide 10 Mg/2 Ml Inj IV Q6H PRN Nausea And Vomiting Metoprolol Succinate 25 mg 03/21/21 22:00 03/23/21 22:18 Metoprolol Succinate Xl 25 Mg Tab PO 25 mg QHS MARY Administration Morphine Sulfate 2 mg 03/21/21 21:42 03/23/21 18:30 Morphine 2 Mg/1 Ml Inj IV 2 mg Q4H PRN Administration Pain, Moderate (4-6) Nifedipine 30 mg 03/21/21 22:00 03/23/21 22:18 Nifedipine Xl 30 Mg Tab PO 30 mg QHS MARY Administration Ondansetron HCl 4 mg 03/21/21 21:42 03/22/21 17:18 Ondansetron 4 Mg/2 Ml Inj IV 4 mg Q8H PRN Administration Nausea And Vomiting Primidone 50 mg 03/21/21 22:00 03/24/21 04:00 Primidone 50 Mg Tab PO Not Given Q6H MARY Promethazine HCl 25 mg 03/21/21 21:40 Promethazine 25 Mg Tab PO QID PRN Nausea Sertraline HCl 100 mg 03/22/21 10:00 03/23/21 12:38 Sertraline 100 Mg Tab PO 100 mg QDAY MARY Administration Sodium Chloride 10 ml 03/21/21 22:00 03/23/21 22:18 Sodium Chloride 0.9% 10 Ml Flush Syringe IV 10 ml BID MARY Administration Sodium Chloride 10 ml 03/21/21 21:42 Sodium Chloride 0.9% 10 Ml Flush Syringe IV PRN PRN LINE FLUSH
[2021-03-24] MEDS: SERTRALINE 100 MG TAB PO SCH (10:30)
[2021-03-24] MEDS: FAMOTIDINE 20 MG TAB PO SCH ×2 (10:30→21:42)
[2021-03-24] MEDS: HEPARIN 5,000 UNIT/1 ML VIAL SUB-Q SCH ×2 (10:30→21:43)
[2021-03-24] MEDS: MORPHINE 2 MG/1 ML INJ IV PRN (10:30)
[2021-03-24] MEDS ORDERED: HYDROcodone/ACETAMINOPHEN 5-325 MG TAB PO PRN (11:00)
[2021-03-24] MEDS: SODIUM CHLORIDE 0.9% 1000 ML 1,000 ML IV SCH (11:09)
[2021-03-24] MEDS: methylPREDNISolone Sod Suc 1,000 MG in SODIUM CHLORIDE 0.9% 250ML 250 ML IV SCH (11:15)
[2021-03-24] MEDS ORDERED: LORazepam 2 MG/ML VIAL IM PRN (13:14)
--- NOTE | 2021-03-24 16:36 | Magnetic Resonance Report ---
MRI CERVICAL SPINE 03/24/2021 INDICATION / CLINICAL INFORMATION: cancer metastesis Patient was given meds prior to MRI and she continued to move, best possible exam. Patient motion. This is the 3rd attempt.. COMPARISON: MRI cervical spine 02/02/2021 FINDINGS: GENERAL OBSERVATIONS: Unenhanced and enhanced MR images of the cervical spine were obtained. Patient motion artifact is present in some of these images. Again seen is heterogeneous bone marrow signal. There is no evidence of acute abnormality. There is no evidence of canal stenosis, spinal cord compre ssion, or intrinsic spinal cord abnormality. Degenerative disc changes are again noted. There is no abnormal contrast enhancement. [id number] ANALYSIS: C7-T1: Unremarkable. C6-7: Mild disc bulging, slightly more pronounced on the left. Left-sided foraminal narrowing. C5-6: Near complete fusion of the disc space. No evidence of stenosis or nerve root compression. C4-5: Moderate symmetric diffuse disc bulging. C3-4: Moderate diffuse disc bulging and left greater than right foraminal narrowing. C2-3: Unremarkable. CRANIO-CERVICAL JUNCTION: Unremarkable. BONE MARROW: Heterogeneous bone marrow signal pattern, unchanged when compared to the prior exam. PARASPINAL SOFT TISSUES: No significant abnormality. IMPRESSION: No evidence of spinal cord compression. Degenerative changes. No significant change when compared to a 1921. Signer Name: Bertram Andrade MD Signed: 03/24/2021 4:31 PM Workstation Name: [id number]
--- NOTE | 2021-03-24 16:38 | Magnetic Resonance Report ---
MRI BRAIN 03/24/2021 INDICATION / CLINICAL INFORMATION: Seizure disorder Patient was given meds prior to MRI and she continued to move, best possible exam. Patient motion.. TECHNIQUE: Multiplanar, multisequence MR images of the brain were obtained. COMPARISON: MRI brain 02/02/2021 FINDINGS: BRAIN / INTRACRANIAL CONTENTS: Unenhanced and enhanced MR images of the brain were obtained. Prominen t patient motion artifact is present. There is no evidence of acute abnormality. Ventricles and sulci are normal in size and shape. There is no evidence of ischemic injury, hemorrhage, or mass. There are no abnormal extra-axial fluid collections. Postcontrast images demonstrate no abnormal contrast enhancement. There is been no significant change when compared to the prior exam from 02/02/2021. EXTRACRANIAL: Unremarkable CRANIOCERVICAL JUNCTION: No significant abnormality. VASCULAR FLOW-VOIDS: No significant abnormality. IMPRESSION: No acute abnormality. No evidence of intracranial metastasis. Signer Name: Bertram Andrade MD Signed: 03/24/2021 4:34 PM Workstation Name: [id number]
[2021-03-24] MEDS: HYDROmorphone 1 MG/1 ML INJ IV PRN ×2 (18:03→21:43)
[2021-03-24] MEDS: LOSARTAN 50 MG TAB PO SCH (21:42)
[2021-03-24] MEDS: NIFEdipine XL 30 MG TAB PO SCH (21:42)
[2021-03-24] MEDS: METOPROLOL SUCCINATE XL 25 MG TAB PO SCH (21:42)
[2021-03-25] MEDS: GABAPENTIN 300 MG CAP PO SCH ×4 (00:33→17:54)
[2021-03-25] MEDS: BACLOFEN 10 MG TAB PO SCH ×5 (00:34→21:35)
[2021-03-25] MEDS: PRIMIDONE 50 MG TAB PO SCH ×3 (04:00→21:43)
[2021-03-25] MEDS: SODIUM CHLORIDE 0.9% 1000 ML 1,000 ML IV SCH ×2 (05:25→23:54)
[2021-03-25] MEDS: HYDROmorphone 1 MG/1 ML INJ IV PRN ×3 (05:34→21:50)
[2021-03-25] MEDS: FAMOTIDINE 20 MG TAB PO SCH ×2 (09:32→21:34)
[2021-03-25] MEDS: HEPARIN 5,000 UNIT/1 ML VIAL SUB-Q SCH ×2 (09:33→21:33)
[2021-03-25] MEDS: SERTRALINE 100 MG TAB PO SCH (09:33)
--- NOTE | 2021-03-25 09:34 | Progress Note ---
Assessment and Plan Assessment and plan: Paraparesis of both lower limbs with associated weakness. Possible MS flare Started on IV Solu-Medrol at 1 g every 24 hours for 5 days. Neurology input appreciated. MRI of the lumbar spine showed DJD. MRI of the cervical spine is pending. Radiologist noted unsuccessful attempt to do MRI exam, patient in extreme pain and unable to lay flat even for a short period of time,patient was given Ativan prior to exam and will reattempt today. Will adjust patient's analgesic. PT has recommended subacute rehab. Low back pain most likely DJD. Pain is uncontrolled. Will discontinue as needed morphine. Change Dilaudid to 1 mg every 3 hours as needed. Start Lortab 5 mg every 4 hours as needed. Hypertension Controlled. Continue the current medication. Peripheral neuropathy Continue Lyrica Depression Chronic. Continue antidepressants. Constipation. Possibly related to pain and analgesic. Continue laxative. Acute urinary retention. Bladder scan was about 650. Will straight cath. If further retention, patient may require Chau catheter placement. DVT prophylaxis on subcu heparin. 03/25/21 Patient with history of multiple sclerosis, weakness lower ext. PT has recommended Subacute Rehab. History Interval history: patient with MS presents with bilateral lower ext weakness Hospitalist Physical - Physical exam Narrative exam: Gen: Not in acute distress, lying in bed HEENT: Normocephalic, atraumatic Lungs: Clear to auscultation bilaterally, no wheeze Heart: S1 and S2 reg, no murmurs, rubs or gallop Abd:soft, non-tender, non distended, normal bowel sounds Ext: No edema, clubbing or cyanosis Neuro: Awake, alert, oriented X 3, weakness both lower ext - Constitutional Vitals: Temp Pulse Resp BP Pulse Ox 98.1 F 59 L 18 136/73 97 03/25/21 08:02 03/25/21 08:02 03/25/21 08:02 03/25/21 08:02 03/25/21 08:20 General appearance: Present: no acute distress, well-nourished Results - Labs CBC & Chem 7: 03/22/21 05:58 03/22/21 05:58 Labs: Laboratory Last Values WBC 7.2 K/mm3 (4.5-11.0) 03/22/21 05:58 RBC 3.57 M/mm3 (3.65-5.03) L 03/22/21 05:58 Hgb 10.7 gm/dl (10.1-14.3) 03/22/21 05:58 Hct 32.5 % (30.3-42.9) 03/22/21 05:58 MCV 91 fl (79-97) 03/22/21 05:58 MCH 30 pg (28-32) 03/22/21 05:58 MCHC 33 % (30-34) 03/22/21 05:58 RDW 15.1 % (13.2-15.2) 03/22/21 05:58 Plt Count 213 K/mm3 (140-440) 03/22/21 05:58 Lymph % (Auto) 30.6 % (13.4-35.0) 03/22/21 05:58 [place] % (Auto) 9.0 % (0.0-7.3) H 03/22/21 05:58 Eos % (Auto) 4.3 % (0.0-4.3) 03/22/21 05:58 Baso % (Auto) 0.7 % (0.0-1.8) 03/22/21 05:58 Lymph # (Auto) 2.2 K/mm3 (1.2-5.4) 03/22/21 05:58 [place] # (Auto) 0.7 K/mm3 (0.0-0.8) 03/22/21 05:58 Eos # (Auto) 0.3 K/mm3 (0.0-0.4) 03/22/21 05:58 Baso # (Auto) 0.1 K/mm3 (0.0-0.1) 03/22/21 05:58 Seg Neutrophils % 55.4 % (40.0-70.0) 03/22/21 05:58 Seg Neutrophils # 4.0 K/mm3 (1.8-7.7) 03/22/21 05:58 ESR 49 mm/Hr (0-20) 03/21/21 15:02 PT 13.9 Sec. (12.2-14.9) 03/21/21 15:02 INR 1.02 (0.87-1.13) 03/21/21 15:02 Sodium 142 mmol/L (137-145) 03/22/21 05:58 Potassium 4.1 mmol/L (3.6-5.0) 03/22/21 05:58 Chloride 106.0 mmol/L (98-107) 03/22/21 05:58 Carbon Dioxide 26 mmol/L (22-30) 03/22/21 05:58 Anion Gap 14 mmol/L 03/22/21 05:58 BUN 15 mg/dL (7-17) 03/22/21 05:58 Creatinine 1.2 mg/dL (0.6-1.2) 03/22/21 05:58 Estimated GFR 56 ml/min 03/22/21 05:58 BUN/Creatinine Ratio 13 % 03/22/21 05:58 Glucose 94 mg/dL (65-100) 03/22/21 05:58 Calcium 9.4 mg/dL (8.4-10.2) 03/22/21 05:58 Magnesium 1.90 mg/dL (1.7-2.3) 03/21/21 15:02 Total Bilirubin 0.40 mg/dL (0.1-1.2) 03/22/21 05:58 AST 12 units/L (5-40) 03/22/21 05:58 ALT 6 units/L (7-56) L 03/22/21 05:58 Alkaline Phosphatase 56 units/L (35-129) 03/22/21 05:58 Total Creatine Kinase 82 units/L (30-135) 03/21/21 15:02 C-Reactive Protein 1.00 mg/dL (0.00-1.30) 03/21/21 15:02 NT-Pro-B Natriuret Pep 46.66 pg/mL (0-900) 03/21/21 15:02 Total Protein 7.5 g/dL (6.3-8.2) 03/22/21 05:58 Albumin 3.6 g/dL (3.9-5) L 03/22/21 05:58 Albumin/Globulin Ratio 0.9 % 03/22/21 05:58 TSH 1.250 mlU/mL (0.270-4.200) 03/21/21 15:02 Nasal Screen MRSA (PCR) Negative (Negative) 03/23/21 04:30 Chau/IV: Voiding Method External Female Catheter Active Medications - Current Medications Current Medications: Generic Name Dose Route Start Last Admin Trade Name Freq PRN Reason Stop Dose Admin Acetaminophen 650 mg 03/21/21 21:42 Acetaminophen 325 Mg Tab PO Q4H PRN Pain MILD(1-3)/Fever >100.5/ALEMAN Hydrocodone Bitart/Acetaminophen 1 each 03/24/21 11:00 Hydrocodone/Acetaminophen 5-325 Mg Tab PO Q4H PRN Pain, Moderate (4-6) Baclofen 20 mg 03/22/21 00:00 03/25/21 05:25 Baclofen 10 Mg Tab PO 20 mg Q6HR MARY Administration Famotidine 20 mg 03/23/21 10:00 03/24/21 21:42 Famotidine 20 Mg Tab PO 20 mg BID MARY Administration Gabapentin 300 mg 03/22/21 00:00 03/25/21 05:26 Gabapentin 300 Mg Cap PO 300 mg Q6HR MARY Administration Heparin Sodium (Porcine) 5,000 unit 03/21/21 22:00 03/24/21 21:43 Heparin 5,000 Unit/1 Ml Vial SUB-Q 5,000 unit Q12HR MARY Administration Hydromorphone HCl 1 mg 03/24/21 11:00 03/25/21 05:34 Hydromorphone 1 Mg/1 Ml Inj IV 1 mg Q3H PRN Administration Pain , Severe (7-10) Sodium Chloride 1,000 mls @ 75 mls/hr 03/21/21 21:45 03/25/21 05:25 Nacl 0.9% 1000 Ml IV 75 mls/hr DIRECT MARY Administration Methylprednisolone Sodium 250 mls @ 250 mls/hr 03/23/21 11:00 03/24/21 11:15 Succinate 1,000 mg/ Sodium IV 03/27/21 11:59 250 mls/hr Chloride Q24H MARY Administration Lorazepam 2 mg 03/24/21 13:14 Lorazepam 2 Mg/Ml Vial IM Q4HR PRN Agitation Losartan Potassium 100 mg 03/22/21 22:00 03/24/21 21:42 Losartan 50 Mg Tab PO 100 mg QHS MARY Administration Metoclopramide HCl 10 mg 03/21/21 21:42 Metoclopramide 10 Mg/2 Ml Inj IV Q6H PRN Nausea And Vomiting Metoprolol Succinate 25 mg 03/21/21 22:00 03/24/21 21:42 Metoprolol Succinate Xl 25 Mg Tab PO 25 mg QHS MARY Administration Nifedipine 30 mg 03/21/21 22:00 03/24/21 21:42 Nifedipine Xl 30 Mg Tab PO 30 mg QHS MARY Administration Ondansetron HCl 4 mg 03/21/21 21:42 03/22/21 17:18 Ondansetron 4 Mg/2 Ml Inj IV 4 mg Q8H PRN Administration Nausea And Vomiting Primidone 50 mg 03/21/21 22:00 03/25/21 09:23 Primidone 50 Mg Tab PO Not Given Q6H MARY Promethazine HCl 25 mg 03/21/21 21:40 Promethazine 25 Mg Tab PO QID PRN Nausea Sertraline HCl 100 mg 03/22/21 10:00 03/24/21 10:30 Sertraline 100 Mg Tab PO 100 mg QDAY MARY Administration Sodium Chloride 10 ml 03/21/21 22:00 03/24/21 21:43 Sodium Chloride 0.9% 10 Ml Flush Syringe IV 10 ml BID MARY Administration Sodium Chloride 10 ml 03/21/21 21:42 Sodium Chloride 0.9% 10 Ml Flush Syringe IV PRN PRN LINE FLUSH
[2021-03-25] MEDS: methylPREDNISolone Sod Suc 1,000 MG in SODIUM CHLORIDE 0.9% 250ML 250 ML IV SCH (10:57)
--- NOTE | 2021-03-25 12:43 | Progress Note ---
Assessment and Plan Assessment and Plan Advance Directives: Yes (Full code) VTE prophylaxis?: Chemical Plan of care discussed with patient/family: Yes - Patient Problems # Paraparesis of both lower limbs with progressive weakness over 1 week period -decrease sensation in lower to umbilicus level ? transverse mylitis can not be excluded -Hx of MS ?2008 no record available she is with no problem or medications for over 12 ys -but taking baclofen and neurontine to help with legs spasm !!! -MRI brain and cerviacl with gd showed no enhancment or wt. matter changes NO sign to suggest MS -MRI Thoracic spine is pending -Advance solmedrol to 1000 mg daily X3 days -Need to consider LP -send for{ protein ,Glucose ,Cell counts in tube 1 and 4,west [place]ile titer, IG level ,oligoclonal band } -Pt therapy and or consider rehabilitation # Hypertension Review antihypertensives and adjust medications # Peripheral neuropathy -? hx of DM # Depression -Renew antidepressants from home # Morbid obesity # DVT prophylaxis -On anticoagulation and GI prophylaxis NICHOLAS -PT therapy evaluate -Foly catheter ? urinary retention - Avoid pain medications -Consider sleep study as out pt. -Try to loss weight +++++ See above -MRI brain and cerviacl with gd showed no enhancment or wt. matter changes NO sign to suggest MS -MRI Thoracic spine is pending -Advance solmedrol to 1000 mg daily X3 days -Need to consider LP -send for{ protein ,Glucose ,Cell counts in tube 1 and 4,west [place]ile titer, IG level ,oligoclonal band } -Pt therapy and or consider rehabilitation will follow Subjective Date of service: 03/25/21 Principal diagnosis: weakness LES and request pain medications !!! Interval history: she is sleepy most of the day MRI brain and cervical as well as lumber is noted --NO sign of MS no enhancment denied bladder difficulty still complains of LES weakness according to her she can not move requesting pain medication to help with back pain !!! Objective - Vital Sign Vital Signs - 12hr 03/25/21 03/25/21 03/25/21 03:51 08:02 08:20 Temperature 98.5 F 98.1 F Pulse Rate 70 59 L Respiratory 16 18 Rate Blood Pressure 141/77 136/73 O2 Sat by Pulse 95 97 97 Oximetry - General Apperance Constitutional: uncomfortable - EENT EENT: PERRL, mucous membranes moist - Respiratory Respiratory: lungs clear, rhonchi - Cardiovascular Cardiovascular: regular rate, normal S1, normal S2 Extremities: non-pitting edema - Gastrointestinal Gastrointestinal: normoactive bowel sounds - Integumentary Integumentary: normal - Neurologic Cranial nerve examination: PERRL, EOMI, intact Speech examination: intact Detailed motor examination: full strength in all darío, other (weakness in LES is unchanged1-2/5 absent reflexes, upper intact decrease sensation at umbilicus level is unchanged) - Laboratory Findings CBC and BMP: 03/22/21 05:58 03/22/21 05:58 Abnormal Lab Findings: Abnormal Labs 03/21/21 03/21/21 03/22/21 15:02 15:02 05:58 RBC 3.60 L 3.57 L RDW 15.3 H [place] % (Auto) 7.4 H 9.0 H ALT 6 L Albumin 3.7 L 03/22/21 05:58 RBC RDW [place] % (Auto) ALT 6 L Albumin 3.6 L
[2021-03-25] MEDS: LORazepam 2 MG/ML VIAL IV PRN (15:07)
--- NOTE | 2021-03-25 17:02 | Magnetic Resonance Report ---
MR thoracic spine wo/w con INDICATION / CLINICAL INFORMATION: increase LES weakness transverse myelitis. TECHNIQUE: Multisequence, multiplanar images of the thoracic spine were obtained. COMPARISON: None available. FINDINGS: ALIGNMENT: Normal alignment. VERTEBRAE:No aggressive osseous marrow signal. Vertebral body heights are preserved. SPINAL CORD: There is increased central T2 cord signal at CT 910 level. SPONDYLOSIS: There is diffuse advanced spondylosis with disc height loss and multilevel reactive Meliton c type I and type II changes in the vertebral endplates. There is moderate central canal stenosis at T4-5, T5-6, T6-7, and T7-8. There is severe central canal stenosis at T9-T10 and at T11-12. PARASPINAL SOFT TISSUES: No significant abnormality. ADDITIONAL FINDINGS: None. IMPRESSION: Extensive advanced spondylosis with multilevel disc herniations resulting in moderate to severe centr al canal stenosis at multiple levels. There is increased central T2 cord signal at the T9-10 level that could indicate spinal cord infarct versus developing myelomalacia due to severe spinal canal stenosis at that level. Signer Name: Richar Akers MD Signed: 03/25/2021 4:58 PM Workstation Name: [id number]
[2021-03-25] MEDS: HYDROcodone/ACETAMINOPHEN 5-325 MG TAB PO PRN (17:54)
[2021-03-25] MEDS: NIFEdipine XL 30 MG TAB PO SCH (21:34)
[2021-03-25] MEDS: LOSARTAN 50 MG TAB PO SCH (21:34)
[2021-03-25] MEDS: METOPROLOL SUCCINATE XL 25 MG TAB PO SCH (21:35)
[2021-03-26 05:59] LABS: Hematocrit 31.5 % (30.3-42.9); Hemoglobin 10.6 gm/dl (10.1-14.3); Mean Corpuscular HGB Conc 34 % (30-34); Mean Corpuscular Volume 92 fl (79-97); Platelet Count 230 K/mm3 (140-440); Red Blood Count 3.44 M/mm3 (3.65-5.03); Red Cell Distribution Width 14.7 % (13.2-15.2)
[2021-03-26 06:19] LABS: Calcium 8.9 mg/dL (8.4-10.2)
--- NOTE | 2021-03-26 09:06 | Progress Note ---
Assessment and Plan Assessment and plan: Paraparesis of both lower limbs with associated weakness. Possible MS flare Started on IV Solu-Medrol at 1 g every 24 hours for 5 days. Neurology input appreciated. MRI of the lumbar spine showed DJD. MRI of the cervical spine is pending. Radiologist noted unsuccessful attempt to do MRI exam, patient in extreme pain and unable to lay flat even for a short period of time,patient was given Ativan prior to exam and will reattempt today. Will adjust patient's analgesic. PT has recommended subacute rehab. Low back pain most likely DJD. Pain is uncontrolled. Will discontinue as needed morphine. Change Dilaudid to 1 mg every 3 hours as needed. Start Lortab 5 mg every 4 hours as needed. Hypertension Controlled. Continue the current medication. Peripheral neuropathy Continue Lyrica Depression Chronic. Continue antidepressants. Constipation. Possibly related to pain and analgesic. Continue laxative. Acute urinary retention. Bladder scan was about 650. Will straight cath. If further retention, patient may require Chau catheter placement. DVT prophylaxis on subcu heparin. 03/25/21 Patient with history of multiple sclerosis, weakness lower ext. PT has recommended Subacute Rehab. 03/26/21 Patient with history of multiple sclerosis. presented with bilateral lower ext weakness. MRI Brain, cervical and thoracic spines done. Neurology following. PT has recommended Subacute Rehab History Interval history: Patient with multiple sclerosis presents with bilateral lower ext weakness Hospitalist Physical - Physical exam Narrative exam: Gen: Not in acute distress, lying in bed HEENT: Normocephalic, atraumatic Lungs: Clear to auscultation bilaterally, no wheeze Heart: S1 and S2 reg, no murmurs, rubs or gallop Abd:soft, non-tender, non distended, normal bowel sounds Ext: No edema, clubbing or cyanosis Neuro: Awake, alert, oriented X 3, weakness both lower ext - Constitutional Vitals: Temp Pulse Resp BP Pulse Ox 97.7 F 75 20 144/76 96 03/26/21 07:44 03/26/21 07:44 03/26/21 07:44 03/26/21 07:44 03/26/21 07:44 General appearance: Present: no acute distress, well-nourished Results - Labs CBC & Chem 7: 03/26/21 05:31 03/26/21 05:31 Labs: Laboratory Last Values WBC 9.0 K/mm3 (4.5-11.0) 03/26/21 05:31 RBC 3.44 M/mm3 (3.65-5.03) L 03/26/21 05:31 Hgb 10.6 gm/dl (10.1-14.3) 03/26/21 05:31 Hct 31.5 % (30.3-42.9) 03/26/21 05:31 MCV 92 fl (79-97) 03/26/21 05:31 MCH 31 pg (28-32) 03/26/21 05:31 MCHC 34 % (30-34) 03/26/21 05:31 RDW 14.7 % (13.2-15.2) 03/26/21 05:31 Plt Count 230 K/mm3 (140-440) 03/26/21 05:31 Lymph % (Auto) 30.6 % (13.4-35.0) 03/22/21 05:58 [place] % (Auto) 9.0 % (0.0-7.3) H 03/22/21 05:58 Eos % (Auto) 4.3 % (0.0-4.3) 03/22/21 05:58 Baso % (Auto) 0.7 % (0.0-1.8) 03/22/21 05:58 Lymph # (Auto) 2.2 K/mm3 (1.2-5.4) 03/22/21 05:58 [place] # (Auto) 0.7 K/mm3 (0.0-0.8) 03/22/21 05:58 Eos # (Auto) 0.3 K/mm3 (0.0-0.4) 03/22/21 05:58 Baso # (Auto) 0.1 K/mm3 (0.0-0.1) 03/22/21 05:58 Seg Neutrophils % 55.4 % (40.0-70.0) 03/22/21 05:58 Seg Neutrophils # 4.0 K/mm3 (1.8-7.7) 03/22/21 05:58 ESR 49 mm/Hr (0-20) 03/21/21 15:02 PT 13.9 Sec. (12.2-14.9) 03/21/21 15:02 INR 1.02 (0.87-1.13) 03/21/21 15:02 Sodium 140 mmol/L (137-145) 03/26/21 05:31 Potassium 4.1 mmol/L (3.6-5.0) 03/26/21 05:31 Chloride 105.8 mmol/L (98-107) 03/26/21 05:31 Carbon Dioxide 24 mmol/L (22-30) 03/26/21 05:31 Anion Gap 14 mmol/L 03/26/21 05:31 BUN 35 mg/dL (7-17) H 03/26/21 05:31 Creatinine 1.3 mg/dL (0.6-1.2) H 03/26/21 05:31 Estimated GFR 51 ml/min 03/26/21 05:31 BUN/Creatinine Ratio 27 % 03/26/21 05:31 Glucose 143 mg/dL (65-100) H 03/26/21 05:31 Calcium 8.9 mg/dL (8.4-10.2) 03/26/21 05:31 Magnesium 1.90 mg/dL (1.7-2.3) 03/21/21 15:02 Total Bilirubin 0.40 mg/dL (0.1-1.2) 03/22/21 05:58 AST 12 units/L (5-40) 03/22/21 05:58 ALT 6 units/L (7-56) L 03/22/21 05:58 Alkaline Phosphatase 56 units/L (35-129) 03/22/21 05:58 Total Creatine Kinase 82 units/L (30-135) 03/21/21 15:02 C-Reactive Protein 1.00 mg/dL (0.00-1.30) 03/21/21 15:02 NT-Pro-B Natriuret Pep 46.66 pg/mL (0-900) 03/21/21 15:02 Total Protein 7.5 g/dL (6.3-8.2) 03/22/21 05:58 Albumin 3.6 g/dL (3.9-5) L 03/22/21 05:58 Albumin/Globulin Ratio 0.9 % 03/22/21 05:58 TSH 1.250 mlU/mL (0.270-4.200) 03/21/21 15:02 Nasal Screen MRSA (PCR) Negative (Negative) 03/23/21 04:30 Chau/IV: Voiding Method External Female Catheter Active Medications - Current Medications Current Medications: Generic Name Dose Route Start Last Admin Trade Name Freq PRN Reason Stop Dose Admin Acetaminophen 650 mg 03/21/21 21:42 Acetaminophen 325 Mg Tab PO Q4H PRN Pain MILD(1-3)/Fever >100.5/ALEMAN Hydrocodone Bitart/Acetaminophen 1 each 03/25/21 12:47 03/25/21 17:54 Hydrocodone/Acetaminophen 5-325 Mg Tab PO 1 each Q8H PRN Administration Pain, Moderate (4-6) Baclofen 10 mg 03/25/21 14:00 03/25/21 21:35 Baclofen 10 Mg Tab PO 10 mg TID MARY Administration Famotidine 20 mg 03/23/21 10:00 03/25/21 21:34 Famotidine 20 Mg Tab PO 20 mg BID MARY Administration Gabapentin 300 mg 03/25/21 18:00 03/25/21 17:54 Gabapentin 300 Mg Cap PO 300 mg QPM MARY Administration Heparin Sodium (Porcine) 5,000 unit 03/21/21 22:00 03/25/21 21:33 Heparin 5,000 Unit/1 Ml Vial SUB-Q 5,000 unit Q12HR MARY Administration Hydromorphone HCl 1 mg 03/24/21 11:00 03/25/21 21:50 Hydromorphone 1 Mg/1 Ml Inj IV 1 mg Q3H PRN Administration Pain , Severe (7-10) Sodium Chloride 1,000 mls @ 75 mls/hr 03/21/21 21:45 03/25/21 23:54 Nacl 0.9% 1000 Ml IV 75 mls/hr DIRECT MARY Administration Methylprednisolone Sodium 250 mls @ 250 mls/hr 03/23/21 11:00 03/25/21 10:57 Succinate 1,000 mg/ Sodium IV 03/27/21 11:59 250 mls/hr Chloride Q24H MARY Administration Lorazepam 1 mg 03/25/21 14:45 03/25/21 15:07 Lorazepam 2 Mg/Ml Vial IV 1 mg Q1H PRN Administration Anxiety Losartan Potassium 100 mg 03/22/21 22:00 03/25/21 21:34 Losartan 50 Mg Tab PO 100 mg QHS MARY Administration Metoclopramide HCl 10 mg 03/21/21 21:42 Metoclopramide 10 Mg/2 Ml Inj IV Q6H PRN Nausea And Vomiting Metoprolol Succinate 25 mg 03/21/21 22:00 03/25/21 21:35 Metoprolol Succinate Xl 25 Mg Tab PO 25 mg QHS MARY Administration Nifedipine 30 mg 03/21/21 22:00 03/25/21 21:34 Nifedipine Xl 30 Mg Tab PO 30 mg QHS MARY Administration Ondansetron HCl 4 mg 03/21/21 21:42 03/22/21 17:18 Ondansetron 4 Mg/2 Ml Inj IV 4 mg Q8H PRN Administration Nausea And Vomiting Primidone 50 mg 03/25/21 22:00 03/25/21 21:43 Primidone 50 Mg Tab PO Not Given BID MARY Promethazine HCl 25 mg 03/21/21 21:40 Promethazine 25 Mg Tab PO QID PRN Nausea Sertraline HCl 100 mg 03/22/21 10:00 03/25/21 09:33 Sertraline 100 Mg Tab PO 100 mg QDAY MARY Administration Sodium Chloride 10 ml 03/21/21 22:00 03/25/21 21:53 Sodium Chloride 0.9% 10 Ml Flush Syringe IV 10 ml BID MARY Administration Sodium Chloride 10 ml 03/21/21 21:42 Sodium Chloride 0.9% 10 Ml Flush Syringe IV PRN PRN LINE FLUSH
[2021-03-26] MEDS: FAMOTIDINE 20 MG TAB PO SCH ×2 (09:28→21:14)
[2021-03-26] MEDS: HEPARIN 5,000 UNIT/1 ML VIAL SUB-Q SCH ×2 (09:28→21:14)
[2021-03-26] MEDS: BACLOFEN 10 MG TAB PO SCH ×3 (09:28→21:14)
[2021-03-26] MEDS: SERTRALINE 100 MG TAB PO SCH (09:28)
[2021-03-26] MEDS: HYDROcodone/ACETAMINOPHEN 5-325 MG TAB PO PRN (09:31)
[2021-03-26] MEDS: PRIMIDONE 50 MG TAB PO SCH ×2 (09:32→09:42)
[2021-03-26] MEDS: methylPREDNISolone Sod Suc 1,000 MG in SODIUM CHLORIDE 0.9% 250ML 250 ML IV SCH (11:23)
--- NOTE | 2021-03-26 11:46 | Progress Note ---
Assessment and Plan Assessment and Plan Advance Directives: Yes (Full code) VTE prophylaxis?: Chemical Plan of care discussed with patient/family: Yes - Patient Problems # Paraparesis of both lower limbs with progressive weakness over 1 week period -decrease sensation in lower to umbilicus level ? transverse mylitis can not be excluded -Hx of MS ?2008 no record available she is with no problem or medications for over 12 ys -but taking baclofen and neurontine to help with legs spasm !!! -MRI brain and cerviacl with gd showed no enhancment or wt. matter changes NO sign to suggest MS -MRI Thoracic spine is remarkable for multi level spinal cord stenosis at T9- T11, with area of possible encephalomalacia -Advance solmedrol to 1000 mg daily X3 days then stop -Hold on LP for now until neurosurgery see !!! -LP -send for{ protein ,Glucose ,Cell counts in tube 1 and 4,west [place] titer, IG level ,oligoclonal band } -Pt therapy and or consider rehabilitation After NS evaluation # Hypertension Review antihypertensives and adjust medications # Peripheral neuropathy -? hx of DM # Depression -Renew antidepressants from home # Morbid obesity # DVT prophylaxis -On anticoagulation and GI prophylaxis NICHOLAS -PT therapy evaluate -Foly catheter ? urinary retention - Avoid pain medications -Consider sleep study as out pt. -Try to loss weight +++++ See above -MRI brain and cerviacl with gd showed no enhancment or wt. matter changes NO sign to suggest MS -MRI Thoracic spine multi level spinal cord stenosis at T9-T11, with area of possible encephalomalacia -Need Neuro surgery to see -Advance solmedrol to 1000 mg daily X3 days -Need to consider LP -send for{ protein ,Glucose ,Cell counts in tube 1 and 4,west [place] titer, IG level ,oligoclonal band } -Pt therapy and or consider rehabilitation will follow as needed Subjective Date of service: 03/26/21 Principal diagnosis: weakness LES and request pain medications !!! Interval history: she is more awak today since been in the hospital , her mysoline , neurontin and baclofen dose decresed yesterday according to pt. she with tremor ? and was placed on mysoline but mysoline made tremor worse ? she is with recurrset fall now for over 3 years since 2018 had left kne surgery 2008 and since then she is with residual left leg weakness MRI brain and cervical as well as lumber is noted --NO sign of MS no enhancment denied bladder difficulty still complains of LES weakness according to her she can not move requesting pain medication to help with back pain !!! Had MRI thoracic spine done Objective - Vital Sign Vital Signs - 12hr 03/26/21 03/26/21 04:21 07:44 Temperature 98.8 F 97.7 F Pulse Rate 55 L 75 Respiratory 6 L 20 Rate Blood Pressure 109/91 144/76 O2 Sat by Pulse 98 96 Oximetry - General Apperance Constitutional: uncomfortable - EENT EENT: PERRL, mucous membranes moist - Respiratory Respiratory: chest non-tender, lungs clear, rhonchi - Cardiovascular Cardiovascular: regular rate, normal S1, normal S2 Extremities: non-pitting edema - Gastrointestinal Gastrointestinal: normoactive bowel sounds - Integumentary Integumentary: normal - Neurologic Cranial nerve examination: PERRL, EOMI, intact Speech examination: intact Detailed motor examination: other (no legs movments , palnter is down , absent knee jerk , sensory level at T6 is noted unchanged) - Laboratory Findings CBC and BMP: 03/26/21 05:31 03/26/21 05:31 Abnormal Lab Findings: Abnormal Labs 03/21/21 03/21/21 03/22/21 15:02 15:02 05:58 RBC 3.60 L 3.57 L RDW 15.3 H [place] % (Auto) 7.4 H 9.0 H BUN Creatinine Glucose ALT 6 L Albumin 3.7 L 03/22/21 03/26/21 03/26/21 05:58 05:31 05:31 RBC 3.44 L RDW [place] % (Auto) BUN 35 H Creatinine 1.3 H Glucose 143 H ALT 6 L Albumin 3.6 L
[2021-03-26] MEDS: HYDROmorphone 1 MG/1 ML INJ IV PRN ×2 (14:18→21:16)
[2021-03-26] MEDS: GABAPENTIN 300 MG CAP PO SCH (17:08)
[2021-03-26] MEDS: SODIUM CHLORIDE 0.9% 1000 ML 1,000 ML IV SCH (17:09)
[2021-03-26 19:04] LABS: Calcium 8.8 mg/dL (8.4-10.2)
[2021-03-26] MEDS: LOSARTAN 50 MG TAB PO SCH (21:15)
[2021-03-26] MEDS: METOPROLOL SUCCINATE XL 25 MG TAB PO SCH (21:15)
[2021-03-26] MEDS: NIFEdipine XL 30 MG TAB PO SCH (21:16)
[2021-03-27] MEDS: PRIMIDONE 50 MG TAB PO SCH ×3 (01:32→22:35)
[2021-03-27] MEDS: HYDROmorphone 1 MG/1 ML INJ IV PRN ×3 (05:47→23:01)
--- NOTE | 2021-03-27 09:43 | Progress Note ---
Assessment and Plan Assessment and plan: Paraparesis of both lower limbs with associated weakness. Possible MS flare Started on IV Solu-Medrol at 1 g every 24 hours for 5 days. Neurology input appreciated. MRI of the lumbar spine showed DJD. MRI of the cervical spine is pending. Radiologist noted unsuccessful attempt to do MRI exam, patient in extreme pain and unable to lay flat even for a short period of time,patient was given Ativan prior to exam and will reattempt today. Will adjust patient's analgesic. PT has recommended subacute rehab. Low back pain most likely DJD. Pain is uncontrolled. Will discontinue as needed morphine. Change Dilaudid to 1 mg every 3 hours as needed. Start Lortab 5 mg every 4 hours as needed. Hypertension Controlled. Continue the current medication. Peripheral neuropathy Continue Lyrica Depression Chronic. Continue antidepressants. Constipation. Possibly related to pain and analgesic. Continue laxative. Acute urinary retention. Bladder scan was about 650. Will straight cath. If further retention, patient may require Chau catheter placement. DVT prophylaxis on subcu heparin. 03/25/21 Patient with history of multiple sclerosis, weakness lower ext. PT has recommended Subacute Rehab. 03/26/21 Patient with history of multiple sclerosis. presented with bilateral lower ext weakness. MRI Brain, cervical and thoracic spines done. Neurology following. PT has recommended Subacute Rehab 03/27/21 Patient with history of multiple sclerosis. presented with bilateral lower extremity weakness. Patient is being followed by Dr. Jason, Neurology. MRI Brain unremarkable. MRI Thoracic spine shows mod-sev central canal stenosis at multiple levels, increased T2 cod signal at T9-10. Dr. Jason recommends Neurosurg eval. History Interval history: Patient with multiple sclerosis presents with bilateral lower ext weakness Hospitalist Physical - Physical exam Narrative exam: Gen: Not in acute distress, lying in bed HEENT: Normocephalic, atraumatic Lungs: Clear to auscultation bilaterally, no wheeze Heart: S1 and S2 reg, no murmurs, rubs or gallop Abd:soft, non-tender, non distended, normal bowel sounds Ext: No edema, clubbing or cyanosis Neuro: Awake, alert, oriented X 3, weakness both lower ext - Constitutional Vitals: Temp Pulse Resp BP Pulse Ox 99.1 F 62 18 163/88 99 03/27/21 08:45 03/27/21 08:45 03/27/21 08:45 03/27/21 08:45 03/27/21 08:45 General appearance: Present: no acute distress, well-nourished Results - Labs CBC & Chem 7: 03/27/21 08:55 03/27/21 08:55 Labs: Laboratory Last Values WBC 9.0 K/mm3 (4.5-11.0) 03/26/21 05:31 RBC 3.44 M/mm3 (3.65-5.03) L 03/26/21 05:31 Hgb 10.6 gm/dl (10.1-14.3) 03/26/21 05:31 Hct 31.5 % (30.3-42.9) 03/26/21 05:31 MCV 92 fl (79-97) 03/26/21 05:31 MCH 31 pg (28-32) 03/26/21 05:31 MCHC 34 % (30-34) 03/26/21 05:31 RDW 14.7 % (13.2-15.2) 03/26/21 05:31 Plt Count 230 K/mm3 (140-440) 03/26/21 05:31 Lymph % (Auto) 30.6 % (13.4-35.0) 03/22/21 05:58 [place] % (Auto) 9.0 % (0.0-7.3) H 03/22/21 05:58 Eos % (Auto) 4.3 % (0.0-4.3) 03/22/21 05:58 Baso % (Auto) 0.7 % (0.0-1.8) 03/22/21 05:58 Lymph # (Auto) 2.2 K/mm3 (1.2-5.4) 03/22/21 05:58 [place] # (Auto) 0.7 K/mm3 (0.0-0.8) 03/22/21 05:58 Eos # (Auto) 0.3 K/mm3 (0.0-0.4) 03/22/21 05:58 Baso # (Auto) 0.1 K/mm3 (0.0-0.1) 03/22/21 05:58 Seg Neutrophils % 55.4 % (40.0-70.0) 03/22/21 05:58 Seg Neutrophils # 4.0 K/mm3 (1.8-7.7) 03/22/21 05:58 ESR 49 mm/Hr (0-20) 03/21/21 15:02 PT 13.9 Sec. (12.2-14.9) 03/21/21 15:02 INR 1.02 (0.87-1.13) 03/21/21 15:02 Sodium 139 mmol/L (137-145) 03/26/21 18:37 Potassium 4.0 mmol/L (3.6-5.0) 03/26/21 18:37 Chloride 104.6 mmol/L (98-107) 03/26/21 18:37 Carbon Dioxide 23 mmol/L (22-30) 03/26/21 18:37 Anion Gap 15 mmol/L 03/26/21 18:37 BUN 35 mg/dL (7-17) H 03/26/21 18:37 Creatinine 1.3 mg/dL (0.6-1.2) H 03/26/21 18:37 Estimated GFR 51 ml/min 03/26/21 18:37 BUN/Creatinine Ratio 27 % 03/26/21 18:37 Glucose 244 mg/dL (65-100) H 03/26/21 18:37 Calcium 8.8 mg/dL (8.4-10.2) 03/26/21 18:37 Magnesium 1.90 mg/dL (1.7-2.3) 03/21/21 15:02 Total Bilirubin 0.40 mg/dL (0.1-1.2) 03/22/21 05:58 AST 12 units/L (5-40) 03/22/21 05:58 ALT 6 units/L (7-56) L 03/22/21 05:58 Alkaline Phosphatase 56 units/L (35-129) 03/22/21 05:58 Total Creatine Kinase 82 units/L (30-135) 03/21/21 15:02 C-Reactive Protein 1.00 mg/dL (0.00-1.30) 03/21/21 15:02 NT-Pro-B Natriuret Pep 46.66 pg/mL (0-900) 03/21/21 15:02 Total Protein 7.5 g/dL (6.3-8.2) 03/22/21 05:58 Albumin 3.6 g/dL (3.9-5) L 03/22/21 05:58 Albumin/Globulin Ratio 0.9 % 03/22/21 05:58 TSH 1.250 mlU/mL (0.270-4.200) 03/21/21 15:02 Nasal Screen MRSA (PCR) Negative (Negative) 03/23/21 04:30 Chau/IV: Voiding Method External Female Catheter Active Medications - Current Medications Current Medications: Generic Name Dose Route Start Last Admin Trade Name Freq PRN Reason Stop Dose Admin Acetaminophen 650 mg 03/21/21 21:42 Acetaminophen 325 Mg Tab PO Q4H PRN Pain MILD(1-3)/Fever >100.5/ALEMAN Hydrocodone Bitart/Acetaminophen 1 each 03/25/21 12:47 03/26/21 09:31 Hydrocodone/Acetaminophen 5-325 Mg Tab PO 1 each Q8H PRN Administration Pain, Moderate (4-6) Baclofen 10 mg 03/25/21 14:00 03/26/21 21:14 Baclofen 10 Mg Tab PO 10 mg TID MARY Administration Famotidine 20 mg 03/23/21 10:00 03/26/21 21:14 Famotidine 20 Mg Tab PO 20 mg BID MARY Administration Gabapentin 300 mg 03/25/21 18:00 03/26/21 17:08 Gabapentin 300 Mg Cap PO 300 mg QPM MARY Administration Heparin Sodium (Porcine) 5,000 unit 03/21/21 22:00 03/26/21 21:14 Heparin 5,000 Unit/1 Ml Vial SUB-Q 5,000 unit Q12HR MARY Administration Hydromorphone HCl 1 mg 03/24/21 11:00 03/27/21 05:47 Hydromorphone 1 Mg/1 Ml Inj IV 1 mg Q3H PRN Administration Pain , Severe (7-10) Sodium Chloride 1,000 mls @ 75 mls/hr 03/21/21 21:45 03/26/21 17:09 Nacl 0.9% 1000 Ml IV 75 mls/hr DIRECT MARY Administration Methylprednisolone Sodium 250 mls @ 250 mls/hr 03/23/21 11:00 03/26/21 11:23 Succinate 1,000 mg/ Sodium IV 03/27/21 11:59 250 mls/hr Chloride Q24H MARY Administration Lorazepam 1 mg 03/25/21 14:45 03/25/21 15:07 Lorazepam 2 Mg/Ml Vial IV 1 mg Q1H PRN Administration Anxiety Losartan Potassium 100 mg 03/22/21 22:00 03/26/21 21:15 Losartan 50 Mg Tab PO 100 mg QHS MARY Administration Metoclopramide HCl 10 mg 03/21/21 21:42 Metoclopramide 10 Mg/2 Ml Inj IV Q6H PRN Nausea And Vomiting Metoprolol Succinate 25 mg 03/21/21 22:00 03/26/21 21:15 Metoprolol Succinate Xl 25 Mg Tab PO 25 mg QHS MARY Administration Nifedipine 30 mg 03/21/21 22:00 03/26/21 21:16 Nifedipine Xl 30 Mg Tab PO 30 mg QHS MARY Administration Ondansetron HCl 4 mg 03/21/21 21:42 03/22/21 17:18 Ondansetron 4 Mg/2 Ml Inj IV 4 mg Q8H PRN Administration Nausea And Vomiting Primidone 50 mg 03/25/21 22:00 03/27/21 01:32 Primidone 50 Mg Tab PO Not Given BID MARY Promethazine HCl 25 mg 03/21/21 21:40 Promethazine 25 Mg Tab PO QID PRN Nausea Sertraline HCl 100 mg 03/22/21 10:00 03/26/21 09:28 Sertraline 100 Mg Tab PO 100 mg QDAY MARY Administration Sodium Chloride 10 ml 03/21/21 22:00 03/26/21 21:19 Sodium Chloride 0.9% 10 Ml Flush Syringe IV 10 ml BID MARY Administration Sodium Chloride 10 ml 03/21/21 21:42 Sodium Chloride 0.9% 10 Ml Flush Syringe IV PRN PRN LINE FLUSH
[2021-03-27 09:49] LABS: Hematocrit 32.7 % (30.3-42.9); Hemoglobin 10.9 gm/dl (10.1-14.3); Mean Corpuscular HGB Conc 34 % (30-34); Mean Corpuscular Volume 91 fl (79-97); Platelet Count 219 K/mm3 (140-440); Red Blood Count 3.58 M/mm3 (3.65-5.03); Red Cell Distribution Width 15.1 % (13.2-15.2)
[2021-03-27] MEDS: FAMOTIDINE 20 MG TAB PO SCH ×2 (10:08→22:37)
[2021-03-27] MEDS: HEPARIN 5,000 UNIT/1 ML VIAL SUB-Q SCH ×2 (10:08→22:35)
[2021-03-27] MEDS: SERTRALINE 100 MG TAB PO SCH (10:08)
[2021-03-27] MEDS: methylPREDNISolone Sod Suc 1,000 MG in SODIUM CHLORIDE 0.9% 250ML 250 ML IV SCH (10:08)
[2021-03-27] MEDS: BACLOFEN 10 MG TAB PO SCH ×3 (10:08→22:37)
[2021-03-27] MEDS: HYDROcodone/ACETAMINOPHEN 5-325 MG TAB PO PRN (10:09)
[2021-03-27 10:21] LABS: BUN/Creatinine Ratio 31; Blood Urea Nitrogen 34 mg/dL (7-17); Calcium 8.4 mg/dL (8.4-10.2); Hemolysis Index 7
--- NOTE | 2021-03-27 14:40 | Event Note ---
Date: 03/27/21 Called and discussed with Dr. Elian Esposito, Neurosurg. He says he will come see patient today.
[2021-03-27] MEDS: GABAPENTIN 300 MG CAP PO SCH (17:22)
--- NOTE | 2021-03-27 17:32 | Consultation ---
History of Present Illness Consult date: 03/27/21 Reason for Consult: Thoracic stenosis Chief complaint: Leg weakness History of present illness: Micaela Cochran is a 60 y/o Female w/ history of HTN. She was admitted to [facility] last week due to progressive lower extremity weakness. She has experienced gradually progressive weakness over the past few months. In fact, she was previously ambulating with a rolling walker but has recently been using a wheelchair. She had a ground level fall on , which seemed to expedite her progression. She has been unable to move her legs for the past few days. MRI T spine obtained 2 days ago revealed severe thoracic stenosis from T9-11. She reports numbness, which extends from her waist to her toes. She denies any recent use of blood thinners. Medications and Allergies Allergies Allergy/AdvReac Type Severity Reaction Status Date / Time aspirin Allergy Anaphylaxis Verified 03/22/21 08:51 hydrochlorothiazide Allergy Anaphylaxis Verified 02/01/21 16:55 Home Medications Medication Instructions Recorded Confirmed Last Taken Type Ibuprofen [Motrin 400 MG tab] 400 mg PO TID 5 Days #15 tablet 08/22/20 03/22/21 01/29/21 Rx Baclofen 20 mg PO Q6H 02/03/21 03/22/21 01/29/21 History Losartan Potassium 100 mg PO QHS #30 02/03/21 03/22/21 Unknown Rx Metoprolol Xl [Metoprolol 25 mg PO QHS #30 02/03/21 03/22/21 Unknown Rx SUCCINATE ER TAB] Pregabalin 50 mg PO BID #60 capsule 02/03/21 03/22/21 Unknown Rx Primidone [Mysoline] 50 mg PO Q6H #120 02/03/21 03/22/21 Unknown Rx Promethazine [Phenergan] 25 mg PO QID PRN #12 02/03/21 03/22/21 Unknown Rx Sertraline [Zoloft] 100 mg PO QDAY 30 Days #30 02/03/21 03/22/21 Unknown Rx oxyCODONE /ACETAMINOPHEN [Percocet 1 tab PO Q6H PRN #15 tab 02/03/21 03/22/21 Unknown Rx 5/325 mg] Acetaminophen with Codeine 1 each PO Q4HR 03/22/21 03/22/21 Unknown History [Acetaminophen-Codeine #4 TAB] Gabapentin [Neurontin] 300 mg PO Q6HR 03/22/21 03/22/21 Unknown History Metoprolol Xl [Metoprolol 25 mg PO QDAY 03/22/21 03/22/21 Unknown History SUCCINATE ER TAB] NIFEdipine [Nifedipine ER] 30 mg PO DAILY 03/22/21 03/22/21 Unknown History tiZANidine [Zanaflex 4mg TAB] 4 mg PO QPM 03/22/21 03/22/21 Unknown History tiZANidine [Zanaflex 4mg TAB] 8 mg PO QHS 03/22/21 03/22/21 Unknown History Active Meds: Active Medications Acetaminophen (Acetaminophen 325 Mg Tab) 650 mg PO Q4H PRN PRN Reason: Pain MILD(1-3)/Fever >100.5/ALEMAN Hydrocodone Bitart/Acetaminophen (Hydrocodone/Acetaminophen 5-325 Mg Tab) 1 each PO Q8H PRN PRN Reason: Pain, Moderate (4-6) Last Admin: 03/27/21 10:09 Dose: 1 each Documented by: Baclofen (Baclofen 10 Mg Tab) 10 mg PO TID [facility] Last Admin: 03/27/21 14:25 Dose: 10 mg Documented by: Famotidine (Famotidine 20 Mg Tab) 20 mg PO BID [facility] Last Admin: 03/27/21 10:08 Dose: 20 mg Documented by: Gabapentin (Gabapentin 300 Mg Cap) 300 mg PO QPM [facility] Last Admin: 03/27/21 17:22 Dose: 300 mg Documented by: Heparin Sodium (Porcine) (Heparin 5,000 Unit/1 Ml Vial) 5,000 unit SUB-Q Q12HR [facility] Last Admin: 03/27/21 10:08 Dose: 5,000 unit Documented by: Hydromorphone HCl (Hydromorphone 1 Mg/1 Ml Inj) 1 mg IV Q3H PRN PRN Reason: Pain , Severe (7-10) Last Admin: 03/27/21 17:22 Dose: 1 mg Documented by: Sodium Chloride (Nacl 0.9% 1000 Ml) 1,000 mls @ 75 mls/hr IV DIRECT [facility] Last Admin: 03/26/21 17:09 Dose: 75 mls/hr Documented by: Lorazepam (Lorazepam 2 Mg/Ml Vial) 1 mg IV Q1H PRN PRN Reason: Anxiety Last Admin: 03/25/21 15:07 Dose: 1 mg Documented by: Losartan Potassium (Losartan 50 Mg Tab) 100 mg PO QHS [facility] Last Admin: 03/26/21 21:15 Dose: 100 mg Documented by: Metoclopramide HCl (Metoclopramide 10 Mg/2 Ml Inj) 10 mg IV Q6H PRN PRN Reason: Nausea And Vomiting Metoprolol Succinate (Metoprolol Succinate Xl 25 Mg Tab) 25 mg PO QHS [facility] Last Admin: 03/26/21 21:15 Dose: 25 mg Documented by: Nifedipine (Nifedipine Xl 30 Mg Tab) 30 mg PO QHS [facility] Last Admin: 03/26/21 21:16 Dose: 30 mg Documented by: Ondansetron HCl (Ondansetron 4 Mg/2 Ml Inj) 4 mg IV Q8H PRN PRN Reason: Nausea And Vomiting Last Admin: 03/22/21 17:18 Dose: 4 mg Documented by: Primidone (Primidone 50 Mg Tab) 50 mg PO BID [facility] Last Admin: 03/27/21 10:08 Dose: Not Given Documented by: Promethazine HCl (Promethazine 25 Mg Tab) 25 mg PO QID PRN PRN Reason: Nausea Sertraline HCl (Sertraline 100 Mg Tab) 100 mg PO QDAY [facility] Last Admin: 03/27/21 10:08 Dose: 100 mg Documented by: Sodium Chloride (Sodium Chloride 0.9% 10 Ml Flush Syringe) 10 ml IV BID [facility] Last Admin: 03/27/21 10:08 Dose: 10 ml Documented by: Sodium Chloride (Sodium Chloride 0.9% 10 Ml Flush Syringe) 10 ml IV PRN PRN PRN Reason: LINE FLUSH Review of Systems All systems: negative (specified in HPI) Physical Examination - Vital Signs Vital Signs: Vital Signs Temp Pulse Resp BP Pulse Ox 99.0 F 87 18 150/90 98 03/21/21 12:02 03/21/21 12:02 03/21/21 12:02 03/21/21 12:02 03/21/21 12:02 - Physical Exam Narrative exam: seen and examined no acute distress NC/AT RRR breathing non-labored abdomen soft no cyanosis or clubbing A&Ox3 CNII-XII intact motor strength full in UE LE strength flicker in R hip abduction, otherwise 0/5 sensation diminished to light touch in LE reflexes mute b/l LE Results - Laboratory Findings CBC and BMP: 03/27/21 08:55 03/27/21 08:55 Abnormal Lab Findings: Abnormal Labs 03/21/21 03/21/21 03/22/21 15:02 15:02 05:58 RBC 3.60 L 3.57 L RDW 15.3 H [place] % (Auto) 7.4 H 9.0 H Chloride BUN Creatinine Glucose ALT 6 L Albumin 3.7 L 03/22/21 03/26/21 03/26/21 05:58 05:31 05:31 RBC 3.44 L RDW [place] % (Auto) Chloride BUN 35 H Creatinine 1.3 H Glucose 143 H ALT 6 L Albumin 3.6 L 03/26/21 03/27/21 03/27/21 18:37 08:55 08:55 RBC 3.58 L RDW [place] % (Auto) Chloride 108.8 H BUN 35 H 34 H Creatinine 1.3 H Glucose 244 H 123 H ALT Albumin Assessment and Plan 60 y/o Female w/ progressive LE paresis in the context of severe thoracic stenosis, thoracic myelopathy -CT T spine without contrast to further evaluate the bony architecture -will plan for T9-12 decompression on morning -please perform pre-operative evaluation and optimization in preparation for surgery -please notify if questions/concerns
[2021-03-27] MEDS: LOSARTAN 50 MG TAB PO SCH (22:36)
[2021-03-27] MEDS: NIFEdipine XL 30 MG TAB PO SCH (22:36)
[2021-03-27] MEDS: METOPROLOL SUCCINATE XL 25 MG TAB PO SCH (22:36)
[2021-03-28] MEDS: SODIUM CHLORIDE 0.9% 1000 ML 1,000 ML IV SCH ×2 (01:54→15:16)
[2021-03-28 06:29] LABS: Hematocrit 33.5 % (30.3-42.9); Hemoglobin 11.4 gm/dl (10.1-14.3); Mean Corpuscular HGB Conc 34 % (30-34); Mean Corpuscular Volume 90 fl (79-97); Platelet Count 222 K/mm3 (140-440); Red Blood Count 3.72 M/mm3 (3.65-5.03); Red Cell Distribution Width 14.9 % (13.2-15.2)
[2021-03-28 06:45] LABS: BUN/Creatinine Ratio 27; Blood Urea Nitrogen 30 mg/dL (7-17); Calcium 8.8 mg/dL (8.4-10.2); Hemolysis Index 8
[2021-03-28] MEDS: FAMOTIDINE 20 MG TAB PO SCH ×2 (10:20→22:58)
[2021-03-28] MEDS: PRIMIDONE 50 MG TAB PO SCH ×3 (10:20→23:04)
[2021-03-28] MEDS: BACLOFEN 10 MG TAB PO SCH ×3 (10:20→22:59)
[2021-03-28] MEDS: SERTRALINE 100 MG TAB PO SCH (10:20)
[2021-03-28] MEDS: HEPARIN 5,000 UNIT/1 ML VIAL SUB-Q SCH ×2 (10:20→22:59)
[2021-03-28] MEDS: HYDROcodone/ACETAMINOPHEN 5-325 MG TAB PO PRN (10:32)
--- NOTE | 2021-03-28 10:41 | Progress Note ---
Assessment and Plan Assessment and plan: Micaela Cochran is a 60 y/o Female w/ history of HTN. She was admitted to [facility] last week due to progressive lower extremity weakness. She has experienced gradually progressive weakness over the past few months. In fact, she was previously ambulating with a rolling walker but has recently been using a wh eelchair. She had a ground level fall on 03/11, which seemed to expedite her progression. She has been unable to move her legs for the past few days [employer]. MRI T spine obtained on 03/25 revealed severe thoracic stenosis from T9-11. She reports numbness, which extends from her waist to her toes. She denies any recent use of blood thinners. Progressive lower extremity paresis. Severe thoracic stenosis Thoracic myelopathy Hypertension Peripheral neuropathy Depression Acute kidney injury. Urinary retention 03/25/21 Patient with history of multiple sclerosis, weakness lower ext. PT has recommended Subacute Rehab. 03/26/21 Patient with history of multiple sclerosis. presented with bilateral l ower ext weakness. MRI Brain, cervical and thoracic spines done. Neurology following. PT has recommended Subacute Rehab 03/27/21 Patient with history of multiple sclerosis. presented with bilateral l ower extremity weakness. Patient is being followed by Dr. Jason, Neurology. MRI Brain unremarkable. MRI Thoracic spine shows mod-sev central canal stenosis at multiple levels, increased T2 cod signal at T9-10. Dr. Jason recommends Neurosurg eval. 03/28/2021. CT T spine without contrast to further evaluate the bony architecture. Neurosurgery plans for T9-T12 decompression on morning. Acute kidney injury resolved. Etiology may be secondary to vasomotor nephropathy versus urinary retention. Continue to follow [facility] History Interval history: No new issues overnight. Hospitalist Physical - Constitutional Vitals: Temp Pulse Resp BP Pulse Ox 99.5 F 68 16 186/93 98 03/27/21 20:39 03/27/21 20:39 03/27/21 20:39 03/27/21 22:36 03/28/21 01:00 General appearance: Present: no acute distress, well-nourished - EENT Eyes: Present: PERRL, EOM intact ENT: hearing intact, clear oral mucosa, dentition normal - Neck Neck: Present: supple, normal ROM - Respiratory Respiratory effort: normal Respiratory: bilateral: CTA - Cardiovascular Rhythm: regular Heart Sounds: Present: S1 & S2. Absent: gallop, rub - Extremities Extremities: no ischemia, No edema, Full ROM - Abdominal General gastrointestinal: soft, non-tender, non-distended, normal bowel sounds - Integumentary Integumentary: Present: clear, warm, dry - Neurologic Neurologic: CNII-XII intact, moves all extremities Results - Labs CBC & Chem 7: 03/28/21 05:58 03/28/21 05:58 Labs: Laboratory Last Values WBC 8.3 K/mm3 (4.5-11.0) 03/28/21 05:58 RBC 3.72 M/mm3 (3.65-5.03) 03/28/21 05:58 Hgb 11.4 gm/dl (10.1-14.3) 03/28/21 05:58 Hct 33.5 % (30.3-42.9) 03/28/21 05:58 MCV 90 fl (79-97) 03/28/21 05:58 MCH 31 pg (28-32) 03/28/21 05:58 MCHC 34 % (30-34) 03/28/21 05:58 RDW 14.9 % (13.2-15.2) 03/28/21 05:58 Plt Count 222 K/mm3 (140-440) 03/28/21 05:58 Lymph % (Auto) 30.6 % (13.4-35.0) 03/22/21 05:58 [place] % (Auto) 9.0 % (0.0-7.3) H 03/22/21 05:58 Eos % (Auto) 4.3 % (0.0-4.3) 03/22/21 05:58 Baso % (Auto) 0.7 % (0.0-1.8) 03/22/21 05:58 Lymph # (Auto) 2.2 K/mm3 (1.2-5.4) 03/22/21 05:58 [place] # (Auto) 0.7 K/mm3 (0.0-0.8) 03/22/21 05:58 Eos # (Auto) 0.3 K/mm3 (0.0-0.4) 03/22/21 05:58 Baso # (Auto) 0.1 K/mm3 (0.0-0.1) 03/22/21 05:58 Seg Neutrophils % 55.4 % (40.0-70.0) 03/22/21 05:58 Seg Neutrophils # 4.0 K/mm3 (1.8-7.7) 03/22/21 05:58 ESR 49 mm/Hr (0-20) 03/21/21 15:02 PT 13.9 Sec. (12.2-14.9) 03/21/21 15:02 INR 1.02 (0.87-1.13) 03/21/21 15:02 Sodium 142 mmol/L (137-145) 03/28/21 05:58 Potassium 4.1 mmol/L (3.6-5.0) 03/28/21 05:58 Chloride 107.9 mmol/L (98-107) H 03/28/21 05:58 Carbon Dioxide 24 mmol/L (22-30) 03/28/21 05:58 Anion Gap 14 mmol/L 03/28/21 05:58 BUN 30 mg/dL (7-17) H 03/28/21 05:58 Creatinine 1.1 mg/dL (0.6-1.2) 03/28/21 05:58 Estimated GFR > 60 ml/min 03/28/21 05:58 BUN/Creatinine Ratio 27 % 03/28/21 05:58 Glucose 161 mg/dL (65-100) H 03/28/21 05:58 Calcium 8.8 mg/dL (8.4-10.2) 03/28/21 05:58 Magnesium 1.90 mg/dL (1.7-2.3) 03/21/21 15:02 Total Bilirubin 0.40 mg/dL (0.1-1.2) 03/22/21 05:58 AST 12 units/L (5-40) 03/22/21 05:58 ALT 6 units/L (7-56) L 03/22/21 05:58 Alkaline Phosphatase 56 units/L (35-129) 03/22/21 05:58 Total Creatine Kinase 82 units/L (30-135) 03/21/21 15:02 C-Reactive Protein 1.00 mg/dL (0.00-1.30) 03/21/21 15:02 NT-Pro-B Natriuret Pep 46.66 pg/mL (0-900) 03/21/21 15:02 Total Protein 7.5 g/dL (6.3-8.2) 03/22/21 05:58 Albumin 3.6 g/dL (3.9-5) L 03/22/21 05:58 Albumin/Globulin Ratio 0.9 % 03/22/21 05:58 TSH 1.250 mlU/mL (0.270-4.200) 03/21/21 15:02 Nasal Screen MRSA (PCR) Negative (Negative) 03/23/21 04:30 Chau/IV: Voiding Method External Female Catheter Active Medications - Current Medications Current Medications: Generic Name Dose Route Start Last Admin Trade Name Freq PRN Reason Stop Dose Admin Acetaminophen 650 mg 03/21/21 21:42 Acetaminophen 325 Mg Tab PO Q4H PRN Pain MILD(1-3)/Fever >100.5/ALEMAN Hydrocodone Bitart/Acetaminophen 1 each 03/25/21 12:47 03/27/21 10:09 Hydrocodone/Acetaminophen 5-325 Mg Tab PO 1 each Q8H PRN Administration Pain, Moderate (4-6) Baclofen 10 mg 03/25/21 14:00 03/28/21 10:20 Baclofen 10 Mg Tab PO 10 mg TID MARY Administration Famotidine 20 mg 03/23/21 10:00 03/28/21 10:20 Famotidine 20 Mg Tab PO 20 mg BID MARY Administration Gabapentin 300 mg 03/25/21 18:00 03/27/21 17:22 Gabapentin 300 Mg Cap PO 300 mg QPM MARY Administration Heparin Sodium (Porcine) 5,000 unit 03/21/21 22:00 03/28/21 10:20 Heparin 5,000 Unit/1 Ml Vial SUB-Q 5,000 unit Q12HR MARY Administration Hydromorphone HCl 1 mg 03/24/21 11:00 03/27/21 23:01 Hydromorphone 1 Mg/1 Ml Inj IV 1 mg Q3H PRN Administration Pain , Severe (7-10) Sodium Chloride 1,000 mls @ 75 mls/hr 03/21/21 21:45 03/28/21 01:54 Nacl 0.9% 1000 Ml IV 75 mls/hr DIRECT MARY Administration Lorazepam 1 mg 03/25/21 14:45 03/25/21 15:07 Lorazepam 2 Mg/Ml Vial IV 1 mg Q1H PRN Administration Anxiety Losartan Potassium 100 mg 03/22/21 22:00 03/27/21 22:36 Losartan 50 Mg Tab PO 100 mg QHS MARY Administration Metoclopramide HCl 10 mg 03/21/21 21:42 Metoclopramide 10 Mg/2 Ml Inj IV Q6H PRN Nausea And Vomiting Metoprolol Succinate 25 mg 03/21/21 22:00 03/27/21 22:36 Metoprolol Succinate Xl 25 Mg Tab PO 25 mg QHS MARY Administration Nifedipine 30 mg 03/21/21 22:00 03/27/21 22:36 Nifedipine Xl 30 Mg Tab PO 30 mg QHS MARY Administration Ondansetron HCl 4 mg 03/21/21 21:42 03/22/21 17:18 Ondansetron 4 Mg/2 Ml Inj IV 4 mg Q8H PRN Administration Nausea And Vomiting Primidone 50 mg 03/25/21 22:00 03/28/21 10:20 Primidone 50 Mg Tab PO 50 mg BID MARY Administration Promethazine HCl 25 mg 03/21/21 21:40 Promethazine 25 Mg Tab PO QID PRN Nausea Sertraline HCl 100 mg 03/22/21 10:00 03/28/21 10:20 Sertraline 100 Mg Tab PO 100 mg QDAY MARY Administration Sodium Chloride 10 ml 03/21/21 22:00 03/28/21 10:20 Sodium Chloride 0.9% 10 Ml Flush Syringe IV 10 ml BID MARY Administration Sodium Chloride 10 ml 03/21/21 21:42 Sodium Chloride 0.9% 10 Ml Flush Syringe IV PRN PRN LINE FLUSH
[2021-03-28] MEDS: METOPROLOL SUCCINATE XL 25 MG TAB PO SCH (13:32)
[2021-03-28] MEDS: LOSARTAN 50 MG TAB PO SCH (13:32)
[2021-03-28] MEDS: HYDROmorphone 1 MG/1 ML INJ IV PRN ×2 (15:16→22:58)
[2021-03-28] MEDS: GABAPENTIN 300 MG CAP PO SCH (18:27)
[2021-03-28] MEDS: NIFEdipine XL 30 MG TAB PO SCH (22:58)
[2021-03-29] MEDS: HYDROmorphone 1 MG/1 ML INJ IV PRN ×4 (04:51→17:08)
[2021-03-29] MEDS: SODIUM CHLORIDE 0.9% 1000 ML 1,000 ML IV SCH ×2 (04:57→17:08)
--- NOTE | 2021-03-29 09:48 | Progress Note ---
Assessment and Plan Assessment and plan: Micaela Cochran is a 60 y/o Female w/ history of HTN. She was admitted to [facility] last week due to progressive lower extremity weakness. She has experienced gradually progressive weakness over the past few months. In fact, she was previously ambulating with a rolling walker but has recently been using a wh eelchair. She had a ground level fall on 03/11, which seemed to expedite her progression. She has been unable to move her legs for the past few days [employer]. MRI T spine obtained on 03/25 revealed severe thoracic stenosis from T9-11. She reports numbness, which extends from her waist to her toes. She denies any recent use of blood thinners. Progressive lower extremity paresis. Severe thoracic stenosis Thoracic myelopathy Hypertension Peripheral neuropathy Depression Acute kidney injury. Urinary retention 03/25/21 Patient with history of multiple sclerosis, weakness lower ext. PT has recommended Subacute Rehab. 03/26/21 Patient with history of multiple sclerosis. presented with bilateral l ower ext weakness. MRI Brain, cervical and thoracic spines done. Neurology following. PT has recommended Subacute Rehab 03/27/21 Patient with history of multiple sclerosis. presented with bilateral l ower extremity weakness. Patient is being followed by Dr. Jason, Neurology. MRI Brain unremarkable. MRI Thoracic spine shows mod-sev central canal stenosis at multiple levels, increased T2 cod signal at T9-10. Dr. Jason recommends Neurosurg eval. 03/28/2021. CT T spine without contrast to further evaluate the bony architecture. Neurosurgery plans for T9-T12 decompression on morning. Acute kidney injury resolved. Etiology may be secondary to vasomotor nephropathy versus urinary retention. Continue to follow [facility] 03/29/2021. Neurosurgery plans for T9-T12 decompression for tomorrow. Acute kidney injury resolved. Continue PT/OT after surgery. History Interval history: No new issues overnight. Hospitalist Physical - Constitutional Vitals: Temp Pulse Resp BP Pulse Ox 99.1 F 62 20 168/82 100 03/29/21 07:58 03/29/21 07:59 03/29/21 07:58 03/29/21 07:58 03/29/21 07:59 General appearance: Present: no acute distress, well-nourished - EENT Eyes: Present: PERRL, EOM intact ENT: hearing intact, clear oral mucosa, dentition normal - Neck Neck: Present: supple, normal ROM - Respiratory Respiratory effort: normal Respiratory: bilateral: CTA - Cardiovascular Rhythm: regular Heart Sounds: Present: S1 & S2. Absent: gallop, rub - Extremities Extremities: no ischemia, No edema, Full ROM - Abdominal General gastrointestinal: soft, non-tender, non-distended, normal bowel sounds - Integumentary Integumentary: Present: clear, warm, dry - Neurologic Neurologic: CNII-XII intact, moves all extremities Results - Labs CBC & Chem 7: 03/28/21 05:58 03/28/21 05:58 Labs: Laboratory Last Values WBC 8.3 K/mm3 (4.5-11.0) 03/28/21 05:58 RBC 3.72 M/mm3 (3.65-5.03) 03/28/21 05:58 Hgb 11.4 gm/dl (10.1-14.3) 03/28/21 05:58 Hct 33.5 % (30.3-42.9) 03/28/21 05:58 MCV 90 fl (79-97) 03/28/21 05:58 MCH 31 pg (28-32) 03/28/21 05:58 MCHC 34 % (30-34) 03/28/21 05:58 RDW 14.9 % (13.2-15.2) 03/28/21 05:58 Plt Count 222 K/mm3 (140-440) 03/28/21 05:58 Lymph % (Auto) 30.6 % (13.4-35.0) 03/22/21 05:58 [place] % (Auto) 9.0 % (0.0-7.3) H 03/22/21 05:58 Eos % (Auto) 4.3 % (0.0-4.3) 03/22/21 05:58 Baso % (Auto) 0.7 % (0.0-1.8) 03/22/21 05:58 Lymph # (Auto) 2.2 K/mm3 (1.2-5.4) 03/22/21 05:58 [place] # (Auto) 0.7 K/mm3 (0.0-0.8) 03/22/21 05:58 Eos # (Auto) 0.3 K/mm3 (0.0-0.4) 03/22/21 05:58 Baso # (Auto) 0.1 K/mm3 (0.0-0.1) 03/22/21 05:58 Seg Neutrophils % 55.4 % (40.0-70.0) 03/22/21 05:58 Seg Neutrophils # 4.0 K/mm3 (1.8-7.7) 03/22/21 05:58 ESR 49 mm/Hr (0-20) 03/21/21 15:02 PT 13.9 Sec. (12.2-14.9) 03/21/21 15:02 INR 1.02 (0.87-1.13) 03/21/21 15:02 Sodium 142 mmol/L (137-145) 03/28/21 05:58 Potassium 4.1 mmol/L (3.6-5.0) 03/28/21 05:58 Chloride 107.9 mmol/L (98-107) H 03/28/21 05:58 Carbon Dioxide 24 mmol/L (22-30) 03/28/21 05:58 Anion Gap 14 mmol/L 03/28/21 05:58 BUN 30 mg/dL (7-17) H 03/28/21 05:58 Creatinine 1.1 mg/dL (0.6-1.2) 03/28/21 05:58 Estimated GFR > 60 ml/min 03/28/21 05:58 BUN/Creatinine Ratio 27 % 03/28/21 05:58 Glucose 161 mg/dL (65-100) H 03/28/21 05:58 Calcium 8.8 mg/dL (8.4-10.2) 03/28/21 05:58 Magnesium 1.90 mg/dL (1.7-2.3) 03/21/21 15:02 Total Bilirubin 0.40 mg/dL (0.1-1.2) 03/22/21 05:58 AST 12 units/L (5-40) 03/22/21 05:58 ALT 6 units/L (7-56) L 03/22/21 05:58 Alkaline Phosphatase 56 units/L (35-129) 03/22/21 05:58 Total Creatine Kinase 82 units/L (30-135) 03/21/21 15:02 C-Reactive Protein 1.00 mg/dL (0.00-1.30) 03/21/21 15:02 NT-Pro-B Natriuret Pep 46.66 pg/mL (0-900) 03/21/21 15:02 Total Protein 7.5 g/dL (6.3-8.2) 03/22/21 05:58 Albumin 3.6 g/dL (3.9-5) L 03/22/21 05:58 Albumin/Globulin Ratio 0.9 % 03/22/21 05:58 TSH 1.250 mlU/mL (0.270-4.200) 03/21/21 15:02 Nasal Screen MRSA (PCR) Negative (Negative) 03/23/21 04:30 Coronavirus (PCR) Negative (Negative) 03/27/21 16:02 Chau/IV: Voiding Method Condom Catheter Active Medications - Current Medications Current Medications: Generic Name Dose Route Start Last Admin Trade Name Freq PRN Reason Stop Dose Admin Acetaminophen 650 mg 03/21/21 21:42 Acetaminophen 325 Mg Tab PO Q4H PRN Pain MILD(1-3)/Fever >100.5/ALEMAN Hydrocodone Bitart/Acetaminophen 1 each 03/25/21 12:47 03/28/21 10:32 Hydrocodone/Acetaminophen 5-325 Mg Tab PO 1 each Q8H PRN Administration Pain, Moderate (4-6) Baclofen 10 mg 03/25/21 14:00 03/28/21 22:59 Baclofen 10 Mg Tab PO 10 mg TID MAYR Administration Famotidine 20 mg 03/23/21 10:00 03/28/21 22:58 Famotidine 20 Mg Tab PO 20 mg BID MARY Administration Gabapentin 300 mg 03/25/21 18:00 03/28/21 18:27 Gabapentin 300 Mg Cap PO 300 mg QPM MARY Administration Heparin Sodium (Porcine) 5,000 unit 03/21/21 22:00 03/28/21 22:59 Heparin 5,000 Unit/1 Ml Vial SUB-Q 5,000 unit Q12HR MARY Administration Hydromorphone HCl 1 mg 03/24/21 11:00 03/29/21 04:51 Hydromorphone 1 Mg/1 Ml Inj IV 1 mg Q3H PRN Administration Pain , Severe (7-10) Sodium Chloride 1,000 mls @ 75 mls/hr 03/21/21 21:45 03/29/21 04:57 Nacl 0.9% 1000 Ml IV 75 mls/hr DIRECT MARY Administration Lorazepam 1 mg 03/25/21 14:45 03/25/21 15:07 Lorazepam 2 Mg/Ml Vial IV 1 mg Q1H PRN Administration Anxiety Losartan Potassium 100 mg 03/28/21 14:00 03/28/21 13:32 Losartan 50 Mg Tab PO 100 mg QDAY MARY Administration Metoclopramide HCl 10 mg 03/21/21 21:42 Metoclopramide 10 Mg/2 Ml Inj IV Q6H PRN Nausea And Vomiting Metoprolol Succinate 25 mg 03/28/21 14:00 03/28/21 13:32 Metoprolol Succinate Xl 25 Mg Tab PO 25 mg QDAY MARY Administration Nifedipine 30 mg 03/21/21 22:00 03/28/21 22:58 Nifedipine Xl 30 Mg Tab PO 30 mg QHS MARY Administration Ondansetron HCl 4 mg 03/21/21 21:42 03/22/21 17:18 Ondansetron 4 Mg/2 Ml Inj IV 4 mg Q8H PRN Administration Nausea And Vomiting Primidone 50 mg 03/25/21 22:00 03/28/21 23:04 Primidone 50 Mg Tab PO Not Given BID MARY Promethazine HCl 25 mg 03/21/21 21:40 Promethazine 25 Mg Tab PO QID PRN Nausea Sertraline HCl 100 mg 03/22/21 10:00 03/28/21 10:20 Sertraline 100 Mg Tab PO 100 mg QDAY MARY Administration Sodium Chloride 10 ml 03/21/21 22:00 03/28/21 22:59 Sodium Chloride 0.9% 10 Ml Flush Syringe IV 10 ml BID MARY Administration Sodium Chloride 10 ml 03/21/21 21:42 Sodium Chloride 0.9% 10 Ml Flush Syringe IV PRN PRN LINE FLUSH
--- NOTE | 2021-03-29 09:48 | Anesthesia Consultation ---
Anesthesia Consult and Med Hx Date of service: 03/29/21 - Airway Anesthetic Teeth Evaluation: Partials (upper and lower) ROM Head & Neck: Adequate Mental/Hyoid Distance: Adequate Mallampati Class: Class III Intubation Access Assessment: Possibly Difficult - Pre-Operative Health Status ASA Pre-Surgery Classification: ASA3 Proposed Anesthetic Plan: General - Pulmonary Hx Smoking: No Hx Asthma: No COPD: No Hx Pneumonia: Yes Hx Sleep Apnea: Yes - Cardiovascular System Hx Hypertension: Yes Hx Pacemaker: No Hx Internal Defibrillator: No - Central Nervous System Hx Neuromuscular Disorder: Yes (Multiple sclerosis (?), peripheral neuropathy, lower extremities weakness) Hx Back Pain: Yes Hx Psychiatric Problems: Yes (depression) - Endocrine Hx End Stage Renal Disease: No - Other Systems Hx Obesity: Yes
--- NOTE | 2021-03-29 10:05 | Cat Scan Report ---
CT thoracic spine wo con INDICATION / CLINICAL INFORMATION: 60 years Female; pre op exam. TECHNIQUE: Axial CT images of the thoracic spine were obtained. Sagittal and coronal reformatted images were pr oduced. All CT scans at this location are performed using CT dose reduction for ALARA by means of aut omated exposure control. COMPARISON: The study is compared to previous MRI of 03/25/2021. FINDINGS: POST-SURGICAL CHANGES: None. ALIGNMENT: There is no significant spondylolisthesis or scoliosis of the thoracic spine. VERTEBRAE: There are continued multilevel advanced degenerative the changes involving thoracic spine, particularly the mid to lower segments with marked disc space narrowing from T5-6-2 T11-12 at. The f indings include vacuum disc phenomenon from T9-T10 to T11-12. There is also notable anterior osteophy tic formation at the segments as well as involving the mid levels at. 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 There is no clear CT evidence of acute fracture involving thoracic spine. There are advanced or disc changes at the visualized C5-6 and C6-7 levels. INTERVERTEBRAL DISCS: There is multilevel posterior spondylosis from T4-5 to T7-8 which efface the ve ntral subarachnoid space and appear to deform the ventral cord. The findings also correlate with the prior MRI. There is associated mild to moderate foraminal narrowing, most notable at T4-5. In addition to the spondylosis, there is notable calcification of the ligamentum flavum hypertrophy a t T9-T10, greater on the left. The findings at result in associated spinal stenosis at. Deformity of the cord with increased signal was seen on the earlier MRI and indicative of developing myelomalacia. There appears be moderate to neural foraminal narrowing bilaterally. The spondylosis and ligament flavum hypertrophy appears result in slightly less prominent spinal sten osis and left foraminal narrowing at T10-11.. Milder findings are noted at T11-12. PARASPINAL SOFT TISSUES: No significant abnormality. ADDITIONAL FINDINGS: None. IMPRESSION: 1. There are multilevel advanced degenerative the changes involving thoracic spine, particularly the mid to lower segments as detailed above. 2. The findings a correlate with the earlier MRI of 03/25/2021 demonstrating spondylosis and prominent ligament flavum hypertrophy at T9. Which results in significant spinal stenosis as described. Signer Name: Mayco Chand MD Signed: 03/29/2021 10:01 AM Workstation Name: [id number]
[2021-03-29] MEDS: SERTRALINE 100 MG TAB PO SCH (10:42)
[2021-03-29] MEDS: FAMOTIDINE 20 MG TAB PO SCH ×2 (10:42→22:03)
[2021-03-29] MEDS: PRIMIDONE 50 MG TAB PO SCH ×2 (10:42→22:04)
[2021-03-29] MEDS: BACLOFEN 10 MG TAB PO SCH ×3 (10:43→22:04)
[2021-03-29] MEDS: METOPROLOL SUCCINATE XL 25 MG TAB PO SCH (10:43)
[2021-03-29] MEDS: LOSARTAN 50 MG TAB PO SCH (10:43)
[2021-03-29] MEDS: HEPARIN 5,000 UNIT/1 ML VIAL SUB-Q SCH ×2 (10:45→22:03)
[2021-03-29] MEDS: GABAPENTIN 300 MG CAP PO SCH (17:08)
[2021-03-29] MEDS: NIFEdipine XL 30 MG TAB PO SCH (22:03)
[2021-03-30] MEDS ORDERED: BACTERIOSTATIC SODIUM CHLORIDE 0.9% 30 ML VIAL INFILTRATI ONE (06:20)
[2021-03-30] MEDS ORDERED: hydrALAZINE 20 MG/1 ML INJ IV SCH (07:00)
[2021-03-30] MEDS ORDERED: MAGNESIUM SULFATE 4 GM/100 ML BAG IV ONE (07:17)
[2021-03-30] MEDS ORDERED: SUCCINYLCHOLINE CHLORIDE 200 MG/10 ML INJ MDV ONE (07:21)
[2021-03-30] MEDS ORDERED: ROCURONIUM 50 MG/5 ML INJ IV ONE (07:21)
[2021-03-30] MEDS ORDERED: KETAMINE/STERILE WATER 50 MG/ML SYRINGE ONE (07:21)
[2021-03-30] MEDS ORDERED: MIDAZOLAM 2 MG/2 ML INJ ONE (07:49)
[2021-03-30] MEDS ORDERED: BUPIVACAINE/PF (0.5%) 5 MG/1 ML 30 ML VIAL INFILTRATI ONE (07:59)
[2021-03-30] MEDS ORDERED: LIDOCAINE 1%/EPINEPHRINE 1:100,000 VIAL (20 ML) INFILTRATI ONE (08:00)
[2021-03-30] MEDS ORDERED: LACTATED RINGERS 1,000 ML IV SCH (08:00)
[2021-03-30] MEDS ORDERED: VANCOMYCIN 1000 MG INJ ONE (08:00)
[2021-03-30] MEDS ORDERED: THROMBIN (RECOMBINANT) 5,000 UNIT VIAL TP ONE (08:00)
[2021-03-30] MEDS: BACLOFEN 10 MG TAB PO SCH ×3 (08:00→22:02)
[2021-03-30] MEDS ORDERED: ePHEDrine SULFATE 50 MG/1 ML INJ ONE (08:27)
[2021-03-30] MEDS ORDERED: ONDANSETRON 4 MG/2 ML INJ IV PRN (08:48)
--- NOTE | 2021-03-30 08:48 | Anesthesia Day of Surgery ---
Anesthesia Day of Surgery - Day of Surgery Patient Examined: Yes Patient H&P Reviewed: Yes Patient is NPO: Yes
[2021-03-30] MEDS: LOSARTAN 50 MG TAB PO SCH (10:00)
[2021-03-30] MEDS: METOPROLOL SUCCINATE XL 25 MG TAB PO SCH (10:00)
[2021-03-30] MEDS: SERTRALINE 100 MG TAB PO SCH (10:00)
[2021-03-30] MEDS: PRIMIDONE 50 MG TAB PO SCH ×2 (10:00→22:02)
[2021-03-30] MEDS: HEPARIN 5,000 UNIT/1 ML VIAL SUB-Q SCH ×2 (10:00→22:02)
[2021-03-30] MEDS: FAMOTIDINE 20 MG TAB PO SCH ×2 (10:00→22:02)
[2021-03-30 10:08] LABS: INR 1.05 (0.87-1.13)
[2021-03-30 10:09] LABS: Partial Thromboplastin Time 29.3 Sec. (24.2-36.6)
--- NOTE | 2021-03-30 10:46 | Progress Note ---
Assessment and Plan Assessment and plan: Micaela Cochran is a 60 y/o Female w/ history of HTN. She was admitted to [facility] last week due to progressive lower extremity weakness. She has experienced gradually progressive weakness over the past few months. In fact, she was previously ambulating with a rolling walker but has recently been using a wh eelchair. She had a ground level fall on 03/11, which seemed to expedite her progression. She has been unable to move her legs for the past few days [employer]. MRI T spine obtained on 03/25 revealed severe thoracic stenosis from T9-11. She reports numbness, which extends from her waist to her toes. She denies any recent use of blood thinners. Progressive lower extremity paresis. Severe thoracic stenosis Thoracic myelopathy Hypertension Peripheral neuropathy Depression Acute kidney injury. Urinary retention 03/25/21 Patient with history of multiple sclerosis, weakness lower ext. PT has recommended Subacute Rehab. 03/26/21 Patient with history of multiple sclerosis. presented with bilateral l ower ext weakness. MRI Brain, cervical and thoracic spines done. Neurology following. PT has recommended Subacute Rehab 03/27/21 Patient with history of multiple sclerosis. presented with bilateral l ower extremity weakness. Patient is being followed by Dr. Jason, Neurology. MRI Brain unremarkable. MRI Thoracic spine shows mod-sev central canal stenosis at multiple levels, increased T2 cod signal at T9-10. Dr. Jason recommends Neurosurg eval. 03/28/2021. CT T spine without contrast to further evaluate the bony architecture. Neurosurgery plans for T9-T12 decompression on morning. Acute kidney injury resolved. Etiology may be secondary to vasomotor nephropathy versus urinary retention. Continue to follow BMP 03/29/2021. Neurosurgery plans for T9-T12 decompression for tomorrow. Acute kidney injury resolved. Continue PT/OT after surgery. 03/30/2021. Neurosurgery plans for T9-T12 decompression for today. Follow-up postoperatively History Interval history: No new issues overnight. Hospitalist Physical - Constitutional Vitals: Temp Pulse Resp BP Pulse Ox 100.2 F H 71 20 183/88 98 03/30/21 03:17 03/30/21 07:01 03/30/21 03:17 03/30/21 07:01 03/30/21 03:19 General appearance: Present: no acute distress, well-nourished - EENT Eyes: Present: PERRL, EOM intact ENT: hearing intact, clear oral mucosa, dentition normal - Neck Neck: Present: supple, normal ROM - Respiratory Respiratory effort: normal Respiratory: bilateral: CTA - Cardiovascular Rhythm: regular Heart Sounds: Present: S1 & S2. Absent: gallop, rub - Extremities Extremities: no ischemia, No edema, Full ROM - Abdominal General gastrointestinal: soft, non-tender, non-distended, normal bowel sounds - Integumentary Integumentary: Present: clear, warm, dry - Neurologic Neurologic: CNII-XII intact, moves all extremities Results - Labs CBC & Chem 7: 03/28/21 05:58 03/28/21 05:58 Labs: Laboratory Last Values WBC 8.3 K/mm3 (4.5-11.0) 03/28/21 05:58 RBC 3.72 M/mm3 (3.65-5.03) 03/28/21 05:58 Hgb 11.4 gm/dl (10.1-14.3) 03/28/21 05:58 Hct 33.5 % (30.3-42.9) 03/28/21 05:58 MCV 90 fl (79-97) 03/28/21 05:58 MCH 31 pg (28-32) 03/28/21 05:58 MCHC 34 % (30-34) 03/28/21 05:58 RDW 14.9 % (13.2-15.2) 03/28/21 05:58 Plt Count 222 K/mm3 (140-440) 03/28/21 05:58 Lymph % (Auto) 30.6 % (13.4-35.0) 03/22/21 05:58 [place] % (Auto) 9.0 % (0.0-7.3) H 03/22/21 05:58 Eos % (Auto) 4.3 % (0.0-4.3) 03/22/21 05:58 Baso % (Auto) 0.7 % (0.0-1.8) 03/22/21 05:58 Lymph # (Auto) 2.2 K/mm3 (1.2-5.4) 03/22/21 05:58 [place] # (Auto) 0.7 K/mm3 (0.0-0.8) 03/22/21 05:58 Eos # (Auto) 0.3 K/mm3 (0.0-0.4) 03/22/21 05:58 Baso # (Auto) 0.1 K/mm3 (0.0-0.1) 03/22/21 05:58 Seg Neutrophils % 55.4 % (40.0-70.0) 03/22/21 05:58 Seg Neutrophils # 4.0 K/mm3 (1.8-7.7) 03/22/21 05:58 ESR 49 mm/Hr (0-20) 03/21/21 15:02 PT 14.8 Sec. (12.2-14.9) 03/30/21 09:35 INR 1.05 (0.87-1.13) 03/30/21 09:35 APTT 29.3 Sec. (24.2-36.6) 03/30/21 09:35 Sodium 142 mmol/L (137-145) 03/28/21 05:58 Potassium 4.1 mmol/L (3.6-5.0) 03/28/21 05:58 Chloride 107.9 mmol/L (98-107) H 03/28/21 05:58 Carbon Dioxide 24 mmol/L (22-30) 03/28/21 05:58 Anion Gap 14 mmol/L 03/28/21 05:58 BUN 30 mg/dL (7-17) H 03/28/21 05:58 Creatinine 1.1 mg/dL (0.6-1.2) 03/28/21 05:58 Estimated GFR > 60 ml/min 03/28/21 05:58 BUN/Creatinine Ratio 27 % 03/28/21 05:58 Glucose 161 mg/dL (65-100) H 03/28/21 05:58 POC Glucose 96 mg/dL (70-105) 03/30/21 07:57 Calcium 8.8 mg/dL (8.4-10.2) 03/28/21 05:58 Magnesium 1.90 mg/dL (1.7-2.3) 03/21/21 15:02 Total Bilirubin 0.40 mg/dL (0.1-1.2) 03/22/21 05:58 AST 12 units/L (5-40) 03/22/21 05:58 ALT 6 units/L (7-56) L 03/22/21 05:58 Alkaline Phosphatase 56 units/L (35-129) 03/22/21 05:58 Total Creatine Kinase 82 units/L (30-135) 03/21/21 15:02 C-Reactive Protein 1.00 mg/dL (0.00-1.30) 03/21/21 15:02 NT-Pro-B Natriuret Pep 46.66 pg/mL (0-900) 03/21/21 15:02 Total Protein 7.5 g/dL (6.3-8.2) 03/22/21 05:58 Albumin 3.6 g/dL (3.9-5) L 03/22/21 05:58 Albumin/Globulin Ratio 0.9 % 03/22/21 05:58 TSH 1.250 mlU/mL (0.270-4.200) 03/21/21 15:02 Nasal Screen MRSA (PCR) Negative (Negative) 03/23/21 04:30 Coronavirus (PCR) Negative (Negative) 03/27/21 16:02 Blood Type O POSITIVE 03/29/21 19:00 Antibody Screen Negative 03/29/21 19:00 Chau/IV: Voiding Method External Female Catheter Active Medications - Current Medications Current Medications: Generic Name Dose Route Start Last Admin Trade Name Freq PRN Reason Stop Dose Admin Acetaminophen 650 mg 03/21/21 21:42 Acetaminophen 325 Mg Tab PO Q4H PRN Pain MILD(1-3)/Fever >100.5/ALEMAN Hydrocodone Bitart/Acetaminophen 1 each 03/25/21 12:47 03/28/21 10:32 Hydrocodone/Acetaminophen 5-325 Mg Tab PO 1 each Q8H PRN Administration Pain, Moderate (4-6) Baclofen 10 mg 03/25/21 14:00 03/29/21 22:04 Baclofen 10 Mg Tab PO 10 mg TID MARY Administration Famotidine 20 mg 03/23/21 10:00 03/29/21 22:03 Famotidine 20 Mg Tab PO 20 mg BID MARY Administration Gabapentin 300 mg 03/25/21 18:00 03/29/21 17:08 Gabapentin 300 Mg Cap PO 300 mg QPM MARY Administration Heparin Sodium (Porcine) 5,000 unit 03/21/21 22:00 03/29/21 22:03 Heparin 5,000 Unit/1 Ml Vial SUB-Q 5,000 unit Q12HR MARY Administration Hydromorphone HCl 1 mg 03/24/21 11:00 03/29/21 17:08 Hydromorphone 1 Mg/1 Ml Inj IV 1 mg Q3H PRN Administration Pain , Severe (7-10) Hydromorphone HCl 0.5 mg 03/30/21 08:48 Hydromorphone 1 Mg/1 Ml Inj IV Q10MIN PRN Pain , Severe (7-10) Sodium Chloride 1,000 mls @ 75 mls/hr 03/21/21 21:45 03/29/21 17:08 Nacl 0.9% 1000 Ml IV 75 mls/hr DIRECT MARY Administration Lactated Ringer's 1,000 mls @ 75 mls/hr 03/30/21 08:00 03/30/21 08:00 Lactated Ringers IV 75 mls/hr DIRECT MARY Administration Cefazolin Sodium 3 gm/ Sodium 100 mls @ 100 mls/30 min 03/30/21 08:30 Chloride IV 03/30/21 21:00 PREOP MARY Protocol Lorazepam 1 mg 03/25/21 14:45 03/25/21 15:07 Lorazepam 2 Mg/Ml Vial IV 1 mg Q1H PRN Administration Anxiety Losartan Potassium 100 mg 03/28/21 14:00 03/29/21 10:43 Losartan 50 Mg Tab PO 100 mg QDAY MARY Administration Metoclopramide HCl 10 mg 03/21/21 21:42 Metoclopramide 10 Mg/2 Ml Inj IV Q6H PRN Nausea And Vomiting Metoprolol Succinate 25 mg 03/28/21 14:00 03/29/21 10:43 Metoprolol Succinate Xl 25 Mg Tab PO 25 mg QDAY MARY Administration Nifedipine 30 mg 03/21/21 22:00 03/29/21 22:03 Nifedipine Xl 30 Mg Tab PO 30 mg QHS MARY Administration Ondansetron HCl 4 mg 03/21/21 21:42 03/22/21 17:18 Ondansetron 4 Mg/2 Ml Inj IV 4 mg Q8H PRN Administration Nausea And Vomiting Ondansetron HCl 4 mg 03/30/21 08:48 Ondansetron 4 Mg/2 Ml Inj IV 03/30/21 23:59 ONCE PRN Nausea And Vomiting Primidone 50 mg 03/25/21 22:00 03/29/21 22:04 Primidone 50 Mg Tab PO 50 mg BID MARY Administration Promethazine HCl 25 mg 03/21/21 21:40 Promethazine 25 Mg Tab PO QID PRN Nausea Sertraline HCl 100 mg 03/22/21 10:00 03/29/21 10:42 Sertraline 100 Mg Tab PO 100 mg QDAY MARY Administration Sodium Chloride 10 ml 03/21/21 22:00 03/29/21 22:04 Sodium Chloride 0.9% 10 Ml Flush Syringe IV 10 ml BID MARY Administration Sodium Chloride 10 ml 03/21/21 21:42 Sodium Chloride 0.9% 10 Ml Flush Syringe IV PRN PRN LINE FLUSH Nutrition/Malnutrition Assess - Dietary Evaluation Nutrition/Malnutrition Findings: Nutrition Notes Start: 03/29/21 15:20 Freq: Status: Active Protocol: Document 03/29/21 15:20 MANJEET (Rec: 03/29/21 15:30 SONNYALL [email or web address]) Nutrition Notes Need for Assessment generated from: LOS Initial or Follow up Assessment Current Diagnosis Acute Kidney Injury, Hypertension Other Pertinent Diagnosis Progressive LE paresis, MS, severe thoracic stenosis, depression Current Diet Regular Labs/Tests Reviewed Pertinent Medications Reviewed Height 5 ft 7 in Weight 83 kg Usual Body Weight 159.09 kg [place] Body Weight (kg) 61.36 BMI 28.6 Intake Prior to Admission Fair Weight change and time frame Pt reports unintentional 48% wt loss since January, however, pt appears to weigh more than 183# upon visual inspection Weight Status Overweight Subjective/Other Information Pt screened for LOS. She reports fair-poor appetite; did not eat lunch today. No PO intakes documented; pt reports consuming <50% of meals since admission. Food preferences taken. She is amenable to ONS. Back surgery scheduled for tomorrow. Burn Absent Trauma Absent Current % PO Poor (25-49%) Minimum of two criteria Yes Energy Intake (severe) < or equal to 50% Estimated Energy Requirement > or equal to 5 days Interpretation of Weight Loss (severe) >7.5% in 3 months Protein-Calorie Malnutrition Severe #1 Nutrition Diagnosis Inadequate oral intake Etiology decreased appetite, back pain As Evidenced by Signs and Symptoms pt reports consuming <50% of meals since admission Is patient on ventilator? No Is Patient Ambulatory and/or Out of Bed No REE-([place]-confined to bed) [phone] Calculation Used for Recommendations [place] Additional Notes Pro needs 0.8-1g/k-83g/ day Fluid needs 1ml/kcal Nutrition Intervention Change Diet Order: Continue current diet order; honor food preferences Add Supplement/Snack (indicate name/kcal Ensure Enlive BID (chocolate) /protein ) Provides kCal: 700 Provides Protein (gm) 40 Goal #1 PO intake of meals plus ONS to meet at least 75% energy and pro needs Anticipated Discharge Needs: None identified at this time Follow-Up By: 03/31/21 Additional Comments F/U: intakes (meals/ONS); need to re-order ONS?
[2021-03-30] MEDS ORDERED: dexAMETHasone 20 MG/5 ML VIAL ONE (12:00)
[2021-03-30] MEDS ORDERED: ONDANSETRON 4 MG/2 ML INJ ONE (12:00)
[2021-03-30] MEDS ORDERED: LIDOCAINE MPF (2%) 20 MG/1 ML VIAL 5 ML ONE (12:00)
[2021-03-30] MEDS ORDERED: NEOSTIGMINE 10MG/10 ML INJ MDV ONE (12:06)
[2021-03-30] MEDS ORDERED: PHENYLEPHRINE 10 MG/1 ML INJ SDV ONE (12:06)
[2021-03-30] MEDS ORDERED: GLYCOPYRROLATE 0.4 MG/2 ML INJ ONE ×3 (12:06)
[2021-03-30] MEDS ORDERED: BACITRACIN ZINC OINT 28.4 GM TP ONE (12:12)
--- NOTE | 2021-03-30 12:25 | Post Operative Note ---
Pre-op diagnosis: Thoracic myelopathy Post-op diagnosis: same Findings: Severe stenosis at T9-10, T10-11 Procedure: T9-11 laminectomy Anesthesia: GETA Surgeon: TRACI SEQUEIRA II Estimated blood loss: 50-100ml Pathology: none Condition: stable
[2021-03-30] MEDS: HYDROmorphone 1 MG/1 ML INJ IV PRN ×5 (12:50→20:07)
[2021-03-30] MEDS ORDERED: ceFAZolin/Water 2 GM/20 ML 2 GM/20 ML SYRINGE IV SCH (13:00)
--- NOTE | 2021-03-30 14:15 | Post Anesthesia Evaluation ---
- Post Anesthesia Evaluation Patient Participated: Yes Airway Patent: Yes Stable Respiratory Function: Yes Nausea/Vomiting: No Temp > 96.8F: Yes Pain Manageable: Yes Adequeate Hydration: Yes Anesthesia Complications: No
--- NOTE | 2021-03-30 14:18 | XRay Report ---
INTRAOPERATIVE FLUOROSCOPY: THORACIC SPINE INDICATION / CLINICAL INFORMATION: THORACIC DECOMPRESSION T9-T12. TECHNIQUE: Intraoperative spot images were obtained during the procedure. FINDINGS: Fluoroscopic images of the thoracolumbar spine are provided intraoperatively. Fluoroscopy Time: 17 seconds. Fluoroscopy Images: 2. Signer Name: Nicolás Mcrae MD Signed: 03/30/2021 2:13 PM Workstation Name: [email or web address]
[2021-03-30] MEDS: SODIUM CHLORIDE 0.9% 1000 ML 1,000 ML IV SCH (17:10)
[2021-03-30] MEDS: GABAPENTIN 300 MG CAP PO SCH (17:10)
[2021-03-30] MEDS: LORazepam 2 MG/ML VIAL IV PRN (22:01)
[2021-03-30] MEDS: NIFEdipine XL 30 MG TAB PO SCH (22:09)
[2021-03-31] MEDS: hydrALAZINE 20 MG/1 ML INJ IV PRN ×2 (00:06→05:31)
[2021-03-31] MEDS: HYDROmorphone 1 MG/1 ML INJ IV PRN ×5 (01:48→21:20)
[2021-03-31] MEDS: HYDROcodone/ACETAMINOPHEN 5-325 MG TAB PO PRN (04:25)
--- NOTE | 2021-03-31 08:17 | Progress Note ---
Assessment and Plan 60 y/o F POD1 s/p T9-11 laminectomy -keep flat in bed -regular diet -respiratory protocol -cont drain to gravity -please notify if questions/concerns Subjective Date of service: 03/31/21 Principal diagnosis: weakness LES and request pain medications !!! Interval history: Patient reports expected back pain, but she is able to move both legs today. This represents an improvement from her pre-op condition. Objective - Exam Narrative Exam: seen and examined no acute distress NC/AT A&Ox3 CNII-XII intact 2/5 prox UE, wiggles toes b/l incision c/d/i, dressing in place drain with serosanguinous drainage present - Vital Sign Vital Signs - 12hr 03/30/21 03/30/21 03/30/21 20:56 21:14 23:40 Temperature 99.4 F Pulse Rate 67 102 H Respiratory 20 Rate Blood Pressure 188/97 O2 Sat by Pulse 98 96 Oximetry 03/31/21 03/31/21 03/31/21 00:06 01:48 03:57 Temperature 98.6 F Pulse Rate 102 H 110 H Respiratory 20 20 Rate Blood Pressure 188/97 183/86 O2 Sat by Pulse 97 Oximetry 03/31/21 04:25 Temperature Pulse Rate Respiratory 20 Rate Blood Pressure O2 Sat by Pulse Oximetry - Laboratory Findings CBC and BMP: 03/28/21 05:58 03/28/21 05:58 Abnormal Lab Findings: Abnormal Labs 03/21/21 03/21/21 03/22/21 15:02 15:02 05:58 RBC 3.60 L 3.57 L RDW 15.3 H [place] % (Auto) 7.4 H 9.0 H Chloride BUN Creatinine Glucose ALT 6 L Albumin 3.7 L 03/22/21 03/26/21 03/26/21 05:58 05:31 05:31 RBC 3.44 L RDW [place] % (Auto) Chloride BUN 35 H Creatinine 1.3 H Glucose 143 H ALT 6 L Albumin 3.6 L 03/26/21 03/27/21 03/27/21 18:37 08:55 08:55 RBC 3.58 L RDW [place] % (Auto) Chloride 108.8 H BUN 35 H 34 H Creatinine 1.3 H Glucose 244 H 123 H ALT Albumin 03/28/21 05:58 RBC RDW [place] % (Auto) Chloride 107.9 H BUN 30 H Creatinine Glucose 161 H ALT Albumin
[2021-03-31] MEDS: LOSARTAN 50 MG TAB PO SCH (09:24)
[2021-03-31] MEDS: SERTRALINE 100 MG TAB PO SCH (09:24)
[2021-03-31] MEDS: PRIMIDONE 50 MG TAB PO SCH ×3 (09:24→21:27)
[2021-03-31] MEDS: METOPROLOL SUCCINATE XL 25 MG TAB PO SCH (09:24)
[2021-03-31] MEDS: FAMOTIDINE 20 MG TAB PO SCH ×2 (09:24→21:18)
[2021-03-31] MEDS: BACLOFEN 10 MG TAB PO SCH ×3 (09:24→21:17)
[2021-03-31] MEDS: HEPARIN 5,000 UNIT/1 ML VIAL SUB-Q SCH ×2 (09:25→21:18)
--- NOTE | 2021-03-31 10:59 | Progress Note ---
Assessment and Plan Assessment and plan: Micaela Cochran is a 60 y/o Female w/ history of HTN. She was admitted to [facility] last week due to progressive lower extremity weakness. She has experienced gradually progressive weakness over the past few months. In fact, she was previously ambulating with a rolling walker but has recently been using a wh eelchair. She had a ground level fall on 03/11, which seemed to expedite her progression. 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 MRI T spine obtained on 03/25 revealed severe thoracic stenosis from T9-11. She reports numbness, which extends from her waist to her toes. She denies any recent use of blood thinners. Progressive lower extremity paresis. Severe thoracic stenosis Thoracic myelopathy Hypertension Peripheral neuropathy Depression Acute kidney injury. Urinary retention 03/25/21 Patient with history of multiple sclerosis, weakness lower ext. PT has recommended Subacute Rehab. 03/26/21 Patient with history of multiple sclerosis. presented with bilateral l ower ext weakness. MRI Brain, cervical and thoracic spines done. Neurology following. PT has recommended Subacute Rehab 03/27/21 Patient with history of multiple sclerosis. presented with bilateral l ower extremity weakness. Patient is being followed by Dr. Jason, Neurology. MRI Brain unremarkable. MRI Thoracic spine shows mod-sev central canal stenosis at multiple levels, increased T2 cod signal at T9-10. Dr. Jason recommends Neurosurg eval. 03/28/2021. CT T spine without contrast to further evaluate the bony architecture. Neurosurgery plans for T9-T12 decompression on morning. Acute kidney injury resolved. Etiology may be secondary to vasomotor nephropathy versus urinary retention. Continue to follow BMP 03/29/2021. Neurosurgery plans for T9-T12 decompression for tomorrow. Acute kidney injury resolved. Continue PT/OT after surgery. 03/30/2021. Neurosurgery plans for T9-T12 decompression for today. Follow-up postoperatively 03/31/2021. Neurosurgery reports patient will be kept flat in bed for now. Continue drain to gravity. Drain with serosanguineous drainage present. Advance to regular diet. History Interval history: No new issues overnight. Hospitalist Physical - Constitutional Vitals: Temp Pulse Resp BP Pulse Ox 98.4 F 106 H 20 169/90 100 03/31/21 08:49 03/31/21 09:24 03/31/21 09:16 03/31/21 09:24 03/31/21 09:00 General appearance: Present: no acute distress, well-nourished - EENT Eyes: Present: PERRL, EOM intact ENT: hearing intact, clear oral mucosa, dentition normal - Neck Neck: Present: supple, normal ROM - Respiratory Respiratory effort: normal Respiratory: bilateral: CTA - Cardiovascular Rhythm: regular Heart Sounds: Present: S1 & S2. Absent: gallop, rub - Extremities Extremities: no ischemia, No edema, Full ROM - Abdominal General gastrointestinal: soft, non-tender, non-distended, normal bowel sounds - Integumentary Integumentary: Present: clear, warm, dry - Neurologic Neurologic: CNII-XII intact, moves all extremities Results - Labs CBC & Chem 7: 03/28/21 05:58 03/28/21 05:58 Labs: Laboratory Last Values WBC 8.3 K/mm3 (4.5-11.0) 03/28/21 05:58 RBC 3.72 M/mm3 (3.65-5.03) 03/28/21 05:58 Hgb 11.4 gm/dl (10.1-14.3) 03/28/21 05:58 Hct 33.5 % (30.3-42.9) 03/28/21 05:58 MCV 90 fl (79-97) 03/28/21 05:58 MCH 31 pg (28-32) 03/28/21 05:58 MCHC 34 % (30-34) 03/28/21 05:58 RDW 14.9 % (13.2-15.2) 03/28/21 05:58 Plt Count 222 K/mm3 (140-440) 03/28/21 05:58 Lymph % (Auto) 30.6 % (13.4-35.0) 03/22/21 05:58 [place] % (Auto) 9.0 % (0.0-7.3) H 03/22/21 05:58 Eos % (Auto) 4.3 % (0.0-4.3) 03/22/21 05:58 Baso % (Auto) 0.7 % (0.0-1.8) 03/22/21 05:58 Lymph # (Auto) 2.2 K/mm3 (1.2-5.4) 03/22/21 05:58 [place] # (Auto) 0.7 K/mm3 (0.0-0.8) 03/22/21 05:58 Eos # (Auto) 0.3 K/mm3 (0.0-0.4) 03/22/21 05:58 Baso # (Auto) 0.1 K/mm3 (0.0-0.1) 03/22/21 05:58 Seg Neutrophils % 55.4 % (40.0-70.0) 03/22/21 05:58 Seg Neutrophils # 4.0 K/mm3 (1.8-7.7) 03/22/21 05:58 ESR 49 mm/Hr (0-20) 03/21/21 15:02 PT 14.8 Sec. (12.2-14.9) 03/30/21 09:35 INR 1.05 (0.87-1.13) 03/30/21 09:35 APTT 29.3 Sec. (24.2-36.6) 03/30/21 09:35 Sodium 142 mmol/L (137-145) 03/28/21 05:58 Potassium 4.1 mmol/L (3.6-5.0) 03/28/21 05:58 Chloride 107.9 mmol/L (98-107) H 03/28/21 05:58 Carbon Dioxide 24 mmol/L (22-30) 03/28/21 05:58 Anion Gap 14 mmol/L 03/28/21 05:58 BUN 30 mg/dL (7-17) H 03/28/21 05:58 Creatinine 1.1 mg/dL (0.6-1.2) 03/28/21 05:58 Estimated GFR > 60 ml/min 03/28/21 05:58 BUN/Creatinine Ratio 27 % 03/28/21 05:58 Glucose 161 mg/dL (65-100) H 03/28/21 05:58 POC Glucose 96 mg/dL (70-105) 03/30/21 07:57 Calcium 8.8 mg/dL (8.4-10.2) 03/28/21 05:58 Magnesium 1.90 mg/dL (1.7-2.3) 03/21/21 15:02 Total Bilirubin 0.40 mg/dL (0.1-1.2) 03/22/21 05:58 AST 12 units/L (5-40) 03/22/21 05:58 ALT 6 units/L (7-56) L 03/22/21 05:58 Alkaline Phosphatase 56 units/L (35-129) 03/22/21 05:58 Total Creatine Kinase 82 units/L (30-135) 03/21/21 15:02 C-Reactive Protein 1.00 mg/dL (0.00-1.30) 03/21/21 15:02 NT-Pro-B Natriuret Pep 46.66 pg/mL (0-900) 03/21/21 15:02 Total Protein 7.5 g/dL (6.3-8.2) 03/22/21 05:58 Albumin 3.6 g/dL (3.9-5) L 03/22/21 05:58 Albumin/Globulin Ratio 0.9 % 03/22/21 05:58 TSH 1.250 mlU/mL (0.270-4.200) 03/21/21 15:02 Nasal Screen MRSA (PCR) Negative (Negative) 03/23/21 04:30 Coronavirus (PCR) Negative (Negative) 03/27/21 16:02 Blood Type O POSITIVE 03/29/21 19:00 Antibody Screen Negative 03/29/21 19:00 Chau/IV: Voiding Method External Female Catheter Active Medications - Current Medications Current Medications: Generic Name Dose Route Start Last Admin Trade Name Freq PRN Reason Stop Dose Admin Acetaminophen 650 mg 03/21/21 21:42 Acetaminophen 325 Mg Tab PO Q4H PRN Pain MILD(1-3)/Fever >100.5/ALEMAN Hydrocodone Bitart/Acetaminophen 1 each 03/25/21 12:47 03/31/21 04:25 Hydrocodone/Acetaminophen 5-325 Mg Tab PO 1 each Q8H PRN Administration Pain, Moderate (4-6) Baclofen 10 mg 03/25/21 14:00 03/31/21 09:24 Baclofen 10 Mg Tab PO 10 mg TID MARY Administration Famotidine 20 mg 03/23/21 10:00 03/31/21 09:24 Famotidine 20 Mg Tab PO 20 mg BID MARY Administration Gabapentin 300 mg 03/25/21 18:00 03/30/21 17:10 Gabapentin 300 Mg Cap PO 300 mg QPM MARY Administration Heparin Sodium (Porcine) 5,000 unit 03/21/21 22:00 03/31/21 09:25 Heparin 5,000 Unit/1 Ml Vial SUB-Q 5,000 unit Q12HR MARY Administration Hydralazine HCl 10 mg 03/30/21 23:51 03/31/21 05:31 Hydralazine 20 Mg/1 Ml Inj IV 04/03/21 23:50 10 mg Q4HR PRN Administration Blood Pressure Hydromorphone HCl 1 mg 03/24/21 11:00 03/31/21 09:16 Hydromorphone 1 Mg/1 Ml Inj IV 1 mg Q3H PRN Administration Pain , Severe (7-10) Hydromorphone HCl 0.5 mg 03/30/21 08:48 03/30/21 13:47 Hydromorphone 1 Mg/1 Ml Inj IV 0.5 mg Q10MIN PRN Administration Pain , Severe (7-10) Sodium Chloride 1,000 mls @ 75 mls/hr 03/21/21 21:45 03/30/21 23:49 Nacl 0.9% 1000 Ml IV 75 mls/hr DIRECT MARY Infusion Cefazolin Sodium 2 gm/ Sodium 100 mls @ 200 mls/hr 03/30/21 22:00 03/31/21 06:05 Chloride IV 03/31/21 14:29 200 mls/hr Q8HR MARY Administration Lorazepam 1 mg 03/25/21 14:45 03/30/21 22:01 Lorazepam 2 Mg/Ml Vial IV 1 mg Q1H PRN Administration Anxiety Losartan Potassium 100 mg 03/28/21 14:00 03/31/21 09:24 Losartan 50 Mg Tab PO 100 mg QDAY MARY Administration Metoclopramide HCl 10 mg 03/21/21 21:42 Metoclopramide 10 Mg/2 Ml Inj IV Q6H PRN Nausea And Vomiting Metoprolol Succinate 25 mg 03/28/21 14:00 03/31/21 09:24 Metoprolol Succinate Xl 25 Mg Tab PO 25 mg QDAY MARY Administration Nifedipine 30 mg 03/21/21 22:00 03/30/21 22:09 Nifedipine Xl 30 Mg Tab PO 30 mg QHS MARY Administration Ondansetron HCl 4 mg 03/21/21 21:42 03/22/21 17:18 Ondansetron 4 Mg/2 Ml Inj IV 4 mg Q8H PRN Administration Nausea And Vomiting Primidone 50 mg 03/25/21 22:00 03/31/21 09:24 Primidone 50 Mg Tab PO 50 mg BID MARY Administration Promethazine HCl 25 mg 03/21/21 21:40 Promethazine 25 Mg Tab PO QID PRN Nausea Sertraline HCl 100 mg 03/22/21 10:00 03/31/21 09:24 Sertraline 100 Mg Tab PO 100 mg QDAY MARY Administration Sodium Chloride 10 ml 03/21/21 22:00 03/31/21 09:25 Sodium Chloride 0.9% 10 Ml Flush Syringe IV 10 ml BID MARY Administration Sodium Chloride 10 ml 03/21/21 21:42 Sodium Chloride 0.9% 10 Ml Flush Syringe IV PRN PRN LINE FLUSH Nutrition/Malnutrition Assess - Dietary Evaluation Nutrition/Malnutrition Findings: Nutrition Notes Start: 03/29/21 15:20 Freq: Status: Active Protocol: Document 03/29/21 15:20 [facility] (Rec: 03/29/21 15:30 NHALL [id number]) Nutrition Notes Need for Assessment generated from: LOS Initial or Follow up Assessment Current Diagnosis Acute Kidney Injury, Hypertension Other Pertinent Diagnosis Progressive LE paresis, MS, severe thoracic stenosis, depression Current Diet Regular Labs/Tests Reviewed Pertinent Medications Reviewed Height 5 ft 7 in Weight 83 kg Usual Body Weight 159.09 kg [place] Body Weight (kg) 61.36 BMI 28.6 Intake Prior to Admission Fair Weight change and time frame Pt reports unintentional 48% wt loss since January, however, pt appears to weigh more than 183# upon visual inspection Weight Status Overweight Subjective/Other Information Pt screened for LOS. She reports fair-poor appetite; did not eat lunch today. No PO intakes documented; pt reports consuming <50% of meals since admission. Food preferences taken. She is amenable to ONS. Back surgery scheduled for tomorrow. Burn Absent Trauma Absent Current % PO Poor (25-49%) Minimum of two criteria Yes Energy Intake (severe) < or equal to 50% Estimated Energy Requirement > or equal to 5 days Interpretation of Weight Loss (severe) >7.5% in 3 months Protein-Calorie Malnutrition Severe #1 Nutrition Diagnosis Inadequate oral intake Etiology decreased appetite, back pain As Evidenced by Signs and Symptoms pt reports consuming <50% of meals since admission Is patient on ventilator? No Is Patient Ambulatory and/or Out of Bed No REE-([facility]-confined to bed) [phone] Calculation Used for Recommendations [facility] Additional Notes Pro needs 0.8-1g/k-83g/ day Fluid needs 1ml/kcal Nutrition Intervention Change Diet Order: Continue current diet order; honor food preferences Add Supplement/Snack (indicate name/kcal Ensure Enlive BID (chocolate) /protein ) Provides kCal: 700 Provides Protein (gm) 40 Goal #1 PO intake of meals plus ONS to meet at least 75% energy and pro needs Anticipated Discharge Needs: None identified at this time Follow-Up By: 03/31/21 Additional Comments F/U: intakes (meals/ONS); need to re-order ONS?
[2021-03-31] MEDS: GABAPENTIN 300 MG CAP PO SCH (16:59)
[2021-03-31] MEDS: NIFEdipine XL 30 MG TAB PO SCH (21:19)
[2021-03-31] MEDS: SODIUM CHLORIDE 0.9% 1000 ML 1,000 ML IV SCH (22:07)
[2021-04-01] MEDS: hydrALAZINE 20 MG/1 ML INJ IV PRN (02:30)
[2021-04-01] MEDS: HYDROmorphone 1 MG/1 ML INJ IV PRN ×6 (02:31→21:07)
--- NOTE | 2021-04-01 09:27 | Progress Note ---
Assessment and Plan Assessment and plan: Micaela Cochran is a 60 y/o Female w/ history of HTN. She was admitted to [facility] last week due to progressive lower extremity weakness. She has experienced gradually progressive weakness over the past few months. In fact, she was previously ambulating with a rolling walker but has recently been using a wh eelchair. She had a ground level fall on 03/11, which seemed to expedite her progression. 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 MRI T spine obtained on 03/25 revealed severe thoracic stenosis from T9-11. She reports numbness, which extends from her waist to her toes. She denies any recent use of blood thinners. Progressive lower extremity paresis. Severe thoracic stenosis Thoracic myelopathy Hypertension Peripheral neuropathy Depression Acute kidney injury. Urinary retention 03/25/21 Patient with history of multiple sclerosis, weakness lower ext. PT has recommended Subacute Rehab. 03/26/21 Patient with history of multiple sclerosis. presented with bilateral l ower ext weakness. MRI Brain, cervical and thoracic spines done. Neurology following. PT has recommended Subacute Rehab 03/27/21 Patient with history of multiple sclerosis. presented with bilateral l ower extremity weakness. Patient is being followed by Dr. Jason, Neurology. MRI Brain unremarkable. MRI Thoracic spine shows mod-sev central canal stenosis at multiple levels, increased T2 cod signal at T9-10. Dr. Jason recommends Neurosurg eval. 03/28/2021. CT T spine without contrast to further evaluate the bony architecture. Neurosurgery plans for T9-T12 decompression on morning. Acute kidney injury resolved. Etiology may be secondary to vasomotor nephropathy versus urinary retention. Continue to follow BMP 03/29/2021. Neurosurgery plans for T9-T12 decompression for tomorrow. Acute kidney injury resolved. Continue PT/OT after surgery. 03/30/2021. Neurosurgery plans for T9-T12 decompression for today. Follow-up postoperatively 03/31/2021. Neurosurgery reports patient will be kept flat in bed for now. Continue drain to gravity. Drain with serosanguineous drainage present. Advance to regular diet. 04/01/2021. Patient is POD #2 for T9-T12 decompression. Continue per neurosurgery recommendations. History Interval history: No new issues overnight. Hospitalist Physical - Constitutional Vitals: Temp Pulse Resp BP Pulse Ox 99.2 F 95 H 18 145/71 95 04/01/21 07:56 04/01/21 07:56 04/01/21 07:56 04/01/21 07:56 04/01/21 07:56 General appearance: Present: no acute distress, well-nourished - EENT Eyes: Present: PERRL, EOM intact ENT: hearing intact, clear oral mucosa, dentition normal - Neck Neck: Present: supple, normal ROM - Respiratory Respiratory effort: normal Respiratory: bilateral: CTA - Cardiovascular Rhythm: regular Heart Sounds: Present: S1 & S2. Absent: gallop, rub - Extremities Extremities: no ischemia, No edema, Full ROM - Abdominal General gastrointestinal: soft, non-tender, non-distended, normal bowel sounds - Integumentary Integumentary: Present: clear, warm, dry - Neurologic Neurologic: CNII-XII intact, moves all extremities Results - Labs CBC & Chem 7: 03/28/21 05:58 03/28/21 05:58 Labs: Laboratory Last Values WBC 8.3 K/mm3 (4.5-11.0) 03/28/21 05:58 RBC 3.72 M/mm3 (3.65-5.03) 03/28/21 05:58 Hgb 11.4 gm/dl (10.1-14.3) 03/28/21 05:58 Hct 33.5 % (30.3-42.9) 03/28/21 05:58 MCV 90 fl (79-97) 03/28/21 05:58 MCH 31 pg (28-32) 03/28/21 05:58 MCHC 34 % (30-34) 03/28/21 05:58 RDW 14.9 % (13.2-15.2) 03/28/21 05:58 Plt Count 222 K/mm3 (140-440) 03/28/21 05:58 Lymph % (Auto) 30.6 % (13.4-35.0) 03/22/21 05:58 [place] % (Auto) 9.0 % (0.0-7.3) H 03/22/21 05:58 Eos % (Auto) 4.3 % (0.0-4.3) 03/22/21 05:58 Baso % (Auto) 0.7 % (0.0-1.8) 03/22/21 05:58 Lymph # (Auto) 2.2 K/mm3 (1.2-5.4) 03/22/21 05:58 [place] # (Auto) 0.7 K/mm3 (0.0-0.8) 03/22/21 05:58 Eos # (Auto) 0.3 K/mm3 (0.0-0.4) 03/22/21 05:58 Baso # (Auto) 0.1 K/mm3 (0.0-0.1) 03/22/21 05:58 Seg Neutrophils % 55.4 % (40.0-70.0) 03/22/21 05:58 Seg Neutrophils # 4.0 K/mm3 (1.8-7.7) 03/22/21 05:58 ESR 49 mm/Hr (0-20) 03/21/21 15:02 PT 14.8 Sec. (12.2-14.9) 03/30/21 09:35 INR 1.05 (0.87-1.13) 03/30/21 09:35 APTT 29.3 Sec. (24.2-36.6) 03/30/21 09:35 Sodium 142 mmol/L (137-145) 03/28/21 05:58 Potassium 4.1 mmol/L (3.6-5.0) 03/28/21 05:58 Chloride 107.9 mmol/L (98-107) H 03/28/21 05:58 Carbon Dioxide 24 mmol/L (22-30) 03/28/21 05:58 Anion Gap 14 mmol/L 03/28/21 05:58 BUN 30 mg/dL (7-17) H 03/28/21 05:58 Creatinine 1.1 mg/dL (0.6-1.2) 03/28/21 05:58 Estimated GFR > 60 ml/min 03/28/21 05:58 BUN/Creatinine Ratio 27 % 03/28/21 05:58 Glucose 161 mg/dL (65-100) H 03/28/21 05:58 POC Glucose 96 mg/dL (70-105) 03/30/21 07:57 Calcium 8.8 mg/dL (8.4-10.2) 03/28/21 05:58 Magnesium 1.90 mg/dL (1.7-2.3) 03/21/21 15:02 Total Bilirubin 0.40 mg/dL (0.1-1.2) 03/22/21 05:58 AST 12 units/L (5-40) 03/22/21 05:58 ALT 6 units/L (7-56) L 03/22/21 05:58 Alkaline Phosphatase 56 units/L (35-129) 03/22/21 05:58 Total Creatine Kinase 82 units/L (30-135) 03/21/21 15:02 C-Reactive Protein 1.00 mg/dL (0.00-1.30) 03/21/21 15:02 NT-Pro-B Natriuret Pep 46.66 pg/mL (0-900) 03/21/21 15:02 Total Protein 7.5 g/dL (6.3-8.2) 03/22/21 05:58 Albumin 3.6 g/dL (3.9-5) L 03/22/21 05:58 Albumin/Globulin Ratio 0.9 % 03/22/21 05:58 TSH 1.250 mlU/mL (0.270-4.200) 03/21/21 15:02 Nasal Screen MRSA (PCR) Negative (Negative) 03/23/21 04:30 Coronavirus (PCR) Negative (Negative) 03/27/21 16:02 Blood Type O POSITIVE 03/29/21 19:00 Antibody Screen Negative 03/29/21 19:00 Chau/IV: Voiding Method Indwelling Catheter Active Medications - Current Medications Current Medications: Generic Name Dose Route Start Last Admin Trade Name Freq PRN Reason Stop Dose Admin Acetaminophen 650 mg 03/21/21 21:42 Acetaminophen 325 Mg Tab PO Q4H PRN Pain MILD(1-3)/Fever >100.5/ALEMAN Hydrocodone Bitart/Acetaminophen 1 each 03/25/21 12:47 03/31/21 04:25 Hydrocodone/Acetaminophen 5-325 Mg Tab PO 1 each Q8H PRN Administration Pain, Moderate (4-6) Baclofen 10 mg 03/25/21 14:00 03/31/21 21:17 Baclofen 10 Mg Tab PO 10 mg TID MARY Administration Famotidine 20 mg 03/23/21 10:00 03/31/21 21:18 Famotidine 20 Mg Tab PO 20 mg BID MARY Administration Gabapentin 300 mg 03/25/21 18:00 03/31/21 16:59 Gabapentin 300 Mg Cap PO 300 mg QPM MARY Administration Heparin Sodium (Porcine) 5,000 unit 03/21/21 22:00 03/31/21 21:18 Heparin 5,000 Unit/1 Ml Vial SUB-Q 5,000 unit Q12HR MARY Administration Hydralazine HCl 10 mg 03/30/21 23:51 04/01/21 02:30 Hydralazine 20 Mg/1 Ml Inj IV 04/03/21 23:50 10 mg Q4HR PRN Administration Blood Pressure Hydromorphone HCl 1 mg 03/24/21 11:00 04/01/21 06:47 Hydromorphone 1 Mg/1 Ml Inj IV 1 mg Q3H PRN Administration Pain , Severe (7-10) Hydromorphone HCl 0.5 mg 03/30/21 08:48 03/30/21 13:47 Hydromorphone 1 Mg/1 Ml Inj IV 0.5 mg Q10MIN PRN Administration Pain , Severe (7-10) Sodium Chloride 1,000 mls @ 75 mls/hr 03/21/21 21:45 03/31/21 22:07 Nacl 0.9% 1000 Ml IV 75 mls/hr DIRECT MARY Administration Lorazepam 1 mg 03/25/21 14:45 03/30/21 22:01 Lorazepam 2 Mg/Ml Vial IV 1 mg Q1H PRN Administration Anxiety Losartan Potassium 100 mg 03/28/21 14:00 03/31/21 09:24 Losartan 50 Mg Tab PO 100 mg QDAY MARY Administration Metoclopramide HCl 10 mg 03/21/21 21:42 Metoclopramide 10 Mg/2 Ml Inj IV Q6H PRN Nausea And Vomiting Metoprolol Succinate 25 mg 03/28/21 14:00 03/31/21 09:24 Metoprolol Succinate Xl 25 Mg Tab PO 25 mg QDAY MARY Administration Nifedipine 30 mg 03/21/21 22:00 03/31/21 21:19 Nifedipine Xl 30 Mg Tab PO 30 mg QHS MARY Administration Ondansetron HCl 4 mg 03/21/21 21:42 03/22/21 17:18 Ondansetron 4 Mg/2 Ml Inj IV 4 mg Q8H PRN Administration Nausea And Vomiting Primidone 50 mg 03/25/21 22:00 03/31/21 21:27 Primidone 50 Mg Tab PO Not Given BID MARY Promethazine HCl 25 mg 03/21/21 21:40 Promethazine 25 Mg Tab PO QID PRN Nausea Sertraline HCl 100 mg 03/22/21 10:00 03/31/21 09:24 Sertraline 100 Mg Tab PO 100 mg QDAY MARY Administration Sodium Chloride 10 ml 03/21/21 22:00 04/01/21 02:37 Sodium Chloride 0.9% 10 Ml Flush Syringe IV 10 ml BID MARY Administration Sodium Chloride 10 ml 03/21/21 21:42 Sodium Chloride 0.9% 10 Ml Flush Syringe IV PRN PRN LINE FLUSH Nutrition/Malnutrition Assess - Dietary Evaluation Nutrition/Malnutrition Findings: Nutrition Notes Start: 03/29/21 15:20 Freq: Status: Active Protocol: Document 03/31/21 17:09 MANJEET (Rec: 03/31/21 17:10 MANJEET [id number]) Nutrition Notes Initial or Follow up Brief Note Other Pertinent Diagnosis s/p T9-T12 decompression Current Diet NPO Subjective/Other Information Pt remains NPO Nutrition Intervention Follow-Up By: 04/01/21 Additional Comments F/U: diet advancement, ONS order (Ensure Enlive chocolate BID)
--- NOTE | 2021-04-01 09:27 | Progress Note ---
Assessment and Plan 60 y/o F POD2 s/p T9-11 decompression -cont drain to gravity -increase HOB to 90 degrees -will apply abdominal binder -plan for drain removal tomorrow Elian Esposito II, MD Neurosurgery 04/01/2021 @ 9:27 AM Subjective Date of service: 04/01/21 Principal diagnosis: weakness LES and request pain medications !!! Interval history: patient reports persistent but stable headache. She reports gradual improvement in her lower extremity strength as well. Objective - Exam Narrative Exam: seen and examined resting comfortably A&Ox3 CNII-XII Intact upper extremity strength full LE strength stable incision c/d/i w/ sutures dressing dry drain with thin serosanguinous output - Vital Sign Vital Signs - 12hr 03/31/21 03/31/21 04/01/21 22:00 23:23 00:00 Temperature 98.1 F Pulse Rate 92 H 85 Respiratory 17 20 Rate Blood Pressure 192/100 Blood Pressure [Right] O2 Sat by Pulse 97 96 Oximetry 04/01/21 04/01/21 04/01/21 02:23 02:30 02:31 Temperature Pulse Rate 95 H 95 H Respiratory 17 17 Rate Blood Pressure 169/86 Blood Pressure 169/86 [Right] O2 Sat by Pulse 97 Oximetry 04/01/21 04/01/21 04/01/21 03:01 04:00 04:13 Temperature 98.7 F Pulse Rate 93 H 95 H Respiratory 17 20 Rate Blood Pressure 154/79 Blood Pressure [Right] O2 Sat by Pulse 96 Oximetry 04/01/21 04/01/21 04/01/21 06:47 07:17 07:56 Temperature 99.2 F Pulse Rate 95 H Respiratory 17 17 18 Rate Blood Pressure 145/71 Blood Pressure [Right] O2 Sat by Pulse 95 Oximetry - Laboratory Findings CBC and BMP: 03/28/21 05:58 03/28/21 05:58 Abnormal Lab Findings: Abnormal Labs 03/21/21 03/21/21 03/22/21 15:02 15:02 05:58 RBC 3.60 L 3.57 L RDW 15.3 H [place] % (Auto) 7.4 H 9.0 H Chloride BUN Creatinine Glucose ALT 6 L Albumin 3.7 L 03/22/21 03/26/21 03/26/21 05:58 05:31 05:31 RBC 3.44 L RDW [place] % (Auto) Chloride BUN 35 H Creatinine 1.3 H Glucose 143 H ALT 6 L Albumin 3.6 L 03/26/21 03/27/21 03/27/21 18:37 08:55 08:55 RBC 3.58 L RDW [place] % (Auto) Chloride 108.8 H BUN 35 H 34 H Creatinine 1.3 H Glucose 244 H 123 H ALT Albumin 03/28/21 05:58 RBC RDW [place] % (Auto) Chloride 107.9 H BUN 30 H Creatinine Glucose 161 H ALT Albumin
[2021-04-01] MEDS: SERTRALINE 100 MG TAB PO SCH (10:05)
[2021-04-01] MEDS: HEPARIN 5,000 UNIT/1 ML VIAL SUB-Q SCH ×2 (10:05→22:58)
[2021-04-01] MEDS: LOSARTAN 50 MG TAB PO SCH (10:05)
[2021-04-01] MEDS: BACLOFEN 10 MG TAB PO SCH ×3 (10:06→21:08)
[2021-04-01] MEDS: FAMOTIDINE 20 MG TAB PO SCH ×2 (10:06→22:58)
[2021-04-01] MEDS: METOPROLOL SUCCINATE XL 25 MG TAB PO SCH (10:06)
[2021-04-01] MEDS ORDERED: SODIUM BENZOATE IV ONE (10:30)
[2021-04-01] MEDS ORDERED: CAFFEINE IV ONE (10:30)
[2021-04-01] MEDS ORDERED: SODIUM CHLORIDE 0.9% IV ONE (10:30)
[2021-04-01] MEDS: KETOROLAC 30 MG/1 ML INJ IV PRN (13:58)
[2021-04-01] MEDS: PRIMIDONE 50 MG TAB PO SCH ×2 (14:27→22:58)
[2021-04-01] MEDS: GABAPENTIN 300 MG CAP PO SCH (17:00)
[2021-04-01] MEDS: SODIUM CHLORIDE 0.9% 1000 ML 1,000 ML IV SCH (19:41)
[2021-04-01] MEDS: NIFEdipine XL 30 MG TAB PO SCH (22:58)
[2021-04-02] MEDS: KETOROLAC 30 MG/1 ML INJ IV PRN ×2 (00:15→09:49)
[2021-04-02 04:27] LABS: Basophils % (Auto) 0.4 % (0.0-1.8); Eosinophils # (Auto) 0.4 K/mm3 (0.0-0.4); Eosinophils % (Auto) 4.4 % (0.0-4.3); Hematocrit 33.5 % (30.3-42.9); Hemoglobin 11.2 gm/dl (10.1-14.3); Lymphocytes # (Auto) 2.1 K/mm3 (1.2-5.4); Lymphocytes % (Auto) 20.8 % (13.4-35.0); Mean Corpuscular HGB Conc 34 % (30-34); Mean Corpuscular Volume 93 fl (79-97); Monocytes # (Auto) 1.1 K/mm3 (0.0-0.8); Monocytes % (Auto) 11.1 % (0.0-7.3); Platelet Count 166 K/mm3 (140-440); Red Blood Count 3.62 M/mm3 (3.65-5.03); Red Cell Distribution Width 15.8 % (13.2-15.2)
[2021-04-02] MEDS: HYDROmorphone 1 MG/1 ML INJ IV PRN ×7 (04:28→23:48)
[2021-04-02 04:31] LABS: BUN/Creatinine Ratio 19; Blood Urea Nitrogen 15 mg/dL (7-17); Calcium 8.7 mg/dL (8.4-10.2); Hemolysis Index 4
[2021-04-02] MEDS: BACLOFEN 10 MG TAB PO SCH ×3 (08:16→20:45)
--- NOTE | 2021-04-02 08:45 | Progress Note ---
Assessment and Plan 60 y/o F POD3 s/p T9-11 decompression for severe thoracic myelopathy -cont drain to gravity today, will plan for drain removal tomorrow -PT/OT -lovenox for dvt prophylaxis -pain control as needed -please notify if questions Subjective Date of service: 04/02/21 Principal diagnosis: Lower extremity weakness Interval history: NAEON; pt stable overnight. She reports resolution of her headaches Objective - Exam Narrative Exam: NC/AT A&Ox3 CNII-XII Intact wiggles toes b/l, sluggish hip abduction on left side incision c/d/i w/ ephraim dressing dry - Vital Sign Vital Signs - 12hr 04/01/21 04/01/21 04/02/21 22:00 23:09 03:22 Temperature 99.0 F 98.9 F Pulse Rate 89 78 89 Respiratory 18 14 16 Rate Blood Pressure 138/79 169/89 O2 Sat by Pulse 97 99 97 Oximetry - Laboratory Findings CBC and BMP: 04/02/21 03:30 04/02/21 03:30 Abnormal Lab Findings: Abnormal Labs 03/21/21 03/21/21 03/22/21 15:02 15:02 05:58 RBC 3.60 L 3.57 L RDW 15.3 H [place] % (Auto) 7.4 H 9.0 H Eos % (Auto) [place] # (Auto) Potassium Chloride BUN Creatinine Glucose ALT 6 L Albumin 3.7 L 03/22/21 03/26/21 03/26/21 05:58 05:31 05:31 RBC 3.44 L RDW [place] % (Auto) Eos % (Auto) [place] # (Auto) Potassium Chloride BUN 35 H Creatinine 1.3 H Glucose 143 H ALT 6 L Albumin 3.6 L 03/26/21 03/27/21 03/27/21 18:37 08:55 08:55 RBC 3.58 L RDW [place] % (Auto) Eos % (Auto) [place] # (Auto) Potassium Chloride 108.8 H BUN 35 H 34 H Creatinine 1.3 H Glucose 244 H 123 H ALT Albumin 03/28/21 04/02/21 04/02/21 05:58 03:30 03:30 RBC 3.62 L RDW 15.8 H [place] % (Auto) 11.1 H Eos % (Auto) 4.4 H [place] # (Auto) 1.1 H Potassium 3.4 L Chloride 107.9 H BUN 30 H Creatinine Glucose 161 H ALT Albumin
--- NOTE | 2021-04-02 09:19 | Progress Note ---
Assessment and Plan Assessment and plan: Micaela Cochran is a 60 y/o Female w/ history of HTN. She was admitted to [facility] last week due to progressive lower extremity weakness. She has experienced gradually progressive weakness over the past few months. In fact, she was previously ambulating with a rolling walker but has recently been using a wh eelchair. She had a ground level fall on 03/11, which seemed to expedite her progression. She has been unable to move her legs for the past few days [employer]. MRI T spine obtained on 03/25 revealed severe thoracic stenosis from T9-11. She reports numbness, which extends from her waist to her toes. She denies any recent use of blood thinners. Progressive lower extremity paresis. Severe thoracic stenosis Thoracic myelopathy Hypertension Peripheral neuropathy Depression Acute kidney injury. Urinary retention 03/25/21 Patient with history of multiple sclerosis, weakness lower ext. PT has recommended Subacute Rehab. 03/26/21 Patient with history of multiple sclerosis. presented with bilateral l ower ext weakness. MRI Brain, cervical and thoracic spines done. Neurology following. PT has recommended Subacute Rehab 03/27/21 Patient with history of multiple sclerosis. presented with bilateral l ower extremity weakness. Patient is being followed by Dr. Jason, Neurology. MRI Brain unremarkable. MRI Thoracic spine shows mod-sev central canal stenosis at multiple levels, increased T2 cod signal at T9-10. Dr. Jason recommends Neurosurg eval. 03/28/2021. CT T spine without contrast to further evaluate the bony architecture. Neurosurgery plans for T9-T12 decompression on morning. Acute kidney injury resolved. Etiology may be secondary to vasomotor nephropathy versus urinary retention. Continue to follow BMP 03/29/2021. Neurosurgery plans for T9-T12 decompression for tomorrow. Acute kidney injury resolved. Continue PT/OT after surgery. 03/30/2021. Neurosurgery plans for T9-T12 decompression for today. Follow-up postoperatively 03/31/2021. Neurosurgery reports patient will be kept flat in bed for now. Continue drain to gravity. Drain with serosanguineous drainage present. Advance to regular diet. 04/01/2021. Patient is POD #2 for T9-T12 decompression. Continue per neurosurgery recommendations. 04/02/2021. POD3 s/p T9-11 decompression for severe thoracic myelopathy. Neurosurgery to continue drain to gravity today and plan for removal of drain tomorrow. PT/OT. Continue pain control History Interval history: No new issues overnight. Hospitalist Physical - Constitutional Vitals: Temp Pulse Resp BP Pulse Ox 98.9 F 89 16 169/89 97 04/02/21 03:22 04/02/21 03:22 04/02/21 03:22 04/02/21 03:22 04/02/21 03:22 General appearance: Present: no acute distress, well-nourished - EENT Eyes: Present: PERRL, EOM intact ENT: hearing intact, clear oral mucosa, dentition normal - Neck Neck: Present: supple, normal ROM - Respiratory Respiratory effort: normal Respiratory: bilateral: CTA - Cardiovascular Rhythm: regular Heart Sounds: Present: S1 & S2. Absent: gallop, rub - Extremities Extremities: no ischemia, No edema, Full ROM - Abdominal General gastrointestinal: soft, non-tender, non-distended, normal bowel sounds - Integumentary Integumentary: Present: clear, warm, dry - Neurologic Neurologic: CNII-XII intact, moves all extremities Results - Labs CBC & Chem 7: 04/02/21 03:30 04/02/21 03:30 Labs: Laboratory Last Values WBC 10.1 K/mm3 (4.5-11.0) 04/02/21 03:30 RBC 3.62 M/mm3 (3.65-5.03) L 04/02/21 03:30 Hgb 11.2 gm/dl (10.1-14.3) 04/02/21 03:30 Hct 33.5 % (30.3-42.9) 04/02/21 03:30 MCV 93 fl (79-97) 04/02/21 03:30 MCH 31 pg (28-32) 04/02/21 03:30 MCHC 34 % (30-34) 04/02/21 03:30 RDW 15.8 % (13.2-15.2) H 04/02/21 03:30 Plt Count 166 K/mm3 (140-440) 04/02/21 03:30 Lymph % (Auto) 20.8 % (13.4-35.0) 04/02/21 03:30 [place] % (Auto) 11.1 % (0.0-7.3) H 04/02/21 03:30 Eos % (Auto) 4.4 % (0.0-4.3) H 04/02/21 03:30 Baso % (Auto) 0.4 % (0.0-1.8) 04/02/21 03:30 Lymph # (Auto) 2.1 K/mm3 (1.2-5.4) 04/02/21 03:30 [place] # (Auto) 1.1 K/mm3 (0.0-0.8) H 04/02/21 03:30 Eos # (Auto) 0.4 K/mm3 (0.0-0.4) 04/02/21 03:30 Baso # (Auto) 0.0 K/mm3 (0.0-0.1) 04/02/21 03:30 Seg Neutrophils % 63.3 % (40.0-70.0) 04/02/21 03:30 Seg Neutrophils # 6.4 K/mm3 (1.8-7.7) 04/02/21 03:30 ESR 49 mm/Hr (0-20) 03/21/21 15:02 PT 14.8 Sec. (12.2-14.9) 03/30/21 09:35 INR 1.05 (0.87-1.13) 03/30/21 09:35 APTT 29.3 Sec. (24.2-36.6) 03/30/21 09:35 Sodium 139 mmol/L (137-145) 04/02/21 03:30 Potassium 3.4 mmol/L (3.6-5.0) L 04/02/21 03:30 Chloride 100.9 mmol/L (98-107) 04/02/21 03:30 Carbon Dioxide 27 mmol/L (22-30) 04/02/21 03:30 Anion Gap 15 mmol/L 04/02/21 03:30 BUN 15 mg/dL (7-17) 04/02/21 03:30 Creatinine 0.8 mg/dL (0.6-1.2) 04/02/21 03:30 Estimated GFR > 60 ml/min 04/02/21 03:30 BUN/Creatinine Ratio 19 % 04/02/21 03:30 Glucose 99 mg/dL (65-100) 04/02/21 03:30 POC Glucose 96 mg/dL (70-105) 03/30/21 07:57 Calcium 8.7 mg/dL (8.4-10.2) 04/02/21 03:30 Magnesium 1.90 mg/dL (1.7-2.3) 03/21/21 15:02 Total Bilirubin 0.40 mg/dL (0.1-1.2) 03/22/21 05:58 AST 12 units/L (5-40) 03/22/21 05:58 ALT 6 units/L (7-56) L 03/22/21 05:58 Alkaline Phosphatase 56 units/L (35-129) 03/22/21 05:58 Total Creatine Kinase 82 units/L (30-135) 03/21/21 15:02 C-Reactive Protein 1.00 mg/dL (0.00-1.30) 03/21/21 15:02 NT-Pro-B Natriuret Pep 46.66 pg/mL (0-900) 03/21/21 15:02 Total Protein 7.5 g/dL (6.3-8.2) 03/22/21 05:58 Albumin 3.6 g/dL (3.9-5) L 03/22/21 05:58 Albumin/Globulin Ratio 0.9 % 03/22/21 05:58 TSH 1.250 mlU/mL (0.270-4.200) 03/21/21 15:02 Nasal Screen MRSA (PCR) Negative (Negative) 03/23/21 04:30 Coronavirus (PCR) Negative (Negative) 03/27/21 16:02 Blood Type O POSITIVE 03/29/21 19:00 Antibody Screen Negative 03/29/21 19:00 Chau/IV: Voiding Method Indwelling Catheter Active Medications - Current Medications Current Medications: Generic Name Dose Route Start Last Admin Trade Name Freq PRN Reason Stop Dose Admin Acetaminophen 650 mg 03/21/21 21:42 Acetaminophen 325 Mg Tab PO Q4H PRN Pain MILD(1-3)/Fever >100.5/ALEMAN Hydrocodone Bitart/Acetaminophen 1 each 03/25/21 12:47 03/31/21 04:25 Hydrocodone/Acetaminophen 5-325 Mg Tab PO 1 each Q8H PRN Administration Pain, Moderate (4-6) Baclofen 10 mg 03/25/21 14:00 04/01/21 21:08 Baclofen 10 Mg Tab PO 10 mg TID MARY Administration Famotidine 20 mg 03/23/21 10:00 04/01/21 22:58 Famotidine 20 Mg Tab PO 20 mg BID MARY Administration Gabapentin 300 mg 03/25/21 18:00 04/01/21 17:00 Gabapentin 300 Mg Cap PO 300 mg QPM MARY Administration Heparin Sodium (Porcine) 5,000 unit 03/21/21 22:00 04/01/21 22:58 Heparin 5,000 Unit/1 Ml Vial SUB-Q 5,000 unit Q12HR MARY Administration Hydralazine HCl 10 mg 03/30/21 23:51 04/01/21 02:30 Hydralazine 20 Mg/1 Ml Inj IV 04/03/21 23:50 10 mg Q4HR PRN Administration Blood Pressure Hydromorphone HCl 1 mg 03/24/21 11:00 04/02/21 04:28 Hydromorphone 1 Mg/1 Ml Inj IV 1 mg Q3H PRN Administration Pain , Severe (7-10) Sodium Chloride 1,000 mls @ 75 mls/hr 03/21/21 21:45 04/01/21 19:41 Nacl 0.9% 1000 Ml IV 75 mls/hr DIRECT MARY Administration Ketorolac Tromethamine 30 mg 04/01/21 09:28 04/02/21 00:15 Ketorolac 30 Mg/1 Ml Inj IV 04/03/21 09:27 30 mg Q8H PRN Administration Pain, Moderate (4-6) Lorazepam 1 mg 03/25/21 14:45 03/30/21 22:01 Lorazepam 2 Mg/Ml Vial IV 1 mg Q1H PRN Administration Anxiety Losartan Potassium 100 mg 03/28/21 14:00 04/01/21 10:05 Losartan 50 Mg Tab PO 100 mg QDAY MARY Administration Metoclopramide HCl 10 mg 03/21/21 21:42 Metoclopramide 10 Mg/2 Ml Inj IV Q6H PRN Nausea And Vomiting Metoprolol Succinate 25 mg 03/28/21 14:00 04/01/21 10:06 Metoprolol Succinate Xl 25 Mg Tab PO 25 mg QDAY MARY Administration Nifedipine 30 mg 03/21/21 22:00 04/01/21 22:58 Nifedipine Xl 30 Mg Tab PO 30 mg QHS MARY Administration Ondansetron HCl 4 mg 03/21/21 21:42 03/22/21 17:18 Ondansetron 4 Mg/2 Ml Inj IV 4 mg Q8H PRN Administration Nausea And Vomiting Primidone 50 mg 03/25/21 22:00 04/01/21 22:58 Primidone 50 Mg Tab PO Not Given BID MARY Promethazine HCl 25 mg 03/21/21 21:40 Promethazine 25 Mg Tab PO QID PRN Nausea Sertraline HCl 100 mg 03/22/21 10:00 04/01/21 10:05 Sertraline 100 Mg Tab PO 100 mg QDAY MARY Administration Sodium Chloride 10 ml 03/21/21 22:00 04/01/21 22:58 Sodium Chloride 0.9% 10 Ml Flush Syringe IV 10 ml BID MARY Administration Sodium Chloride 10 ml 03/21/21 21:42 04/01/21 16:57 Sodium Chloride 0.9% 10 Ml Flush Syringe IV 10 ml PRN PRN Administration LINE FLUSH Tizanidine HCl 4 mg 04/02/21 08:47 Tizanidine Tab 4 Mg Tab PO Q8H PRN Muscle Spasm Nutrition/Malnutrition Assess - Dietary Evaluation Nutrition/Malnutrition Findings: Nutrition Notes Start: 03/29/21 15:20 Freq: Status: Active Protocol: Document 04/01/21 14:24 [facility] (Rec: 04/01/21 14:25 [facility] [id number]) Nutrition Notes Initial or Follow up Brief Note Subjective/Other Information Diet to be advanced to [facility] soft for dinner tonight. ONS to be ordered as well. Nutrition Intervention Follow-Up By: 04/02/21 Additional Comments F/U: PO tolerance (meals/ONS)
[2021-04-02] MEDS: METOPROLOL SUCCINATE XL 25 MG TAB PO SCH (09:49)
[2021-04-02] MEDS: tiZANidine TAB 4 MG TAB PO PRN (09:49)
[2021-04-02] MEDS: LOSARTAN 50 MG TAB PO SCH (09:49)
[2021-04-02] MEDS: SERTRALINE 100 MG TAB PO SCH (09:50)
[2021-04-02] MEDS: PRIMIDONE 50 MG TAB PO SCH ×3 (09:50→22:50)
[2021-04-02] MEDS: HEPARIN 5,000 UNIT/1 ML VIAL SUB-Q SCH ×2 (09:50→22:50)
[2021-04-02] MEDS: FAMOTIDINE 20 MG TAB PO SCH ×2 (09:51→22:50)
[2021-04-02] MEDS: GABAPENTIN 300 MG CAP PO SCH (17:55)
[2021-04-02] MEDS: NIFEdipine XL 30 MG TAB PO SCH (22:50)
[2021-04-03] MEDS: HYDROmorphone 1 MG/1 ML INJ IV PRN ×5 (03:44→22:34)
[2021-04-03] MEDS: KETOROLAC 30 MG/1 ML INJ IV PRN (05:56)
--- NOTE | 2021-04-03 09:11 | Progress Note ---
Assessment and Plan Assessment and plan: Micaela Cochran is a 60 y/o Female w/ history of HTN. She was admitted to [facility] last week due to progressive lower extremity weakness. She has experienced gradually progressive weakness over the past few months. In fact, she was previously ambulating with a rolling walker but has recently been using a wh eelchair. She had a ground level fall on 03/11, which seemed to expedite her progression. 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 MRI T spine obtained on 03/25 revealed severe thoracic stenosis from T9-11. She reports numbness, which extends from her waist to her toes. She denies any recent use of blood thinners. Progressive lower extremity paresis. Severe thoracic stenosis Thoracic myelopathy Hypertension Peripheral neuropathy Depression Acute kidney injury. Urinary retention 03/25/21 Patient with history of multiple sclerosis, weakness lower ext. PT has recommended Subacute Rehab. 03/26/21 Patient with history of multiple sclerosis. presented with bilateral l ower ext weakness. MRI Brain, cervical and thoracic spines done. Neurology following. PT has recommended Subacute Rehab 03/27/21 Patient with history of multiple sclerosis. presented with bilateral l ower extremity weakness. Patient is being followed by Dr. Jason, Neurology. MRI Brain unremarkable. MRI Thoracic spine shows mod-sev central canal stenosis at multiple levels, increased T2 cod signal at T9-10. Dr. Jason recommends Neurosurg eval. 03/28/2021. CT T spine without contrast to further evaluate the bony architecture. Neurosurgery plans for T9-T12 decompression on morning. Acute kidney injury resolved. Etiology may be secondary to vasomotor nephropathy versus urinary retention. Continue to follow BMP 03/29/2021. Neurosurgery plans for T9-T12 decompression for tomorrow. Acute kidney injury resolved. Continue PT/OT after surgery. 03/30/2021. Neurosurgery plans for T9-T12 decompression for today. Follow-up postoperatively 03/31/2021. Neurosurgery reports patient will be kept flat in bed for now. Continue drain to gravity. Drain with serosanguineous drainage present. Advance to regular diet. 04/01/2021. Patient is POD #2 for T9-T12 decompression. Continue per neurosurgery recommendations. 04/02/2021. POD3 s/p T9-11 decompression for severe thoracic myelopathy. Neurosurgery to continue drain to gravity today and plan for removal of drain tomorrow. PT/OT. Continue pain control 04/03/2021. Patient is POD 4 s/p T9-11 decompression for severe thoracic myelopathy. Continue surgical drain per neurosurgery. Potential removal of drain today. PT/OT. Continue pain control History Interval history: No new issues overnight. Hospitalist Physical - Constitutional Vitals: Temp Pulse Resp BP Pulse Ox 98.4 F 90 18 136/67 94 04/03/21 05:34 04/03/21 05:34 04/03/21 05:34 04/03/21 05:34 04/03/21 05:34 General appearance: Present: no acute distress, well-nourished - EENT Eyes: Present: PERRL, EOM intact ENT: hearing intact, clear oral mucosa, dentition normal - Neck Neck: Present: supple, normal ROM - Respiratory Respiratory effort: normal Respiratory: bilateral: CTA - Cardiovascular Rhythm: regular Heart Sounds: Present: S1 & S2. Absent: gallop, rub - Extremities Extremities: no ischemia, No edema, Full ROM - Abdominal General gastrointestinal: soft, non-tender, non-distended, normal bowel sounds - Integumentary Integumentary: Present: clear, warm, dry - Neurologic Neurologic: CNII-XII intact, moves all extremities Results - Labs CBC & Chem 7: 04/02/21 03:30 04/02/21 03:30 Labs: Laboratory Last Values WBC 10.1 K/mm3 (4.5-11.0) 04/02/21 03:30 RBC 3.62 M/mm3 (3.65-5.03) L 04/02/21 03:30 Hgb 11.2 gm/dl (10.1-14.3) 04/02/21 03:30 Hct 33.5 % (30.3-42.9) 04/02/21 03:30 MCV 93 fl (79-97) 04/02/21 03:30 MCH 31 pg (28-32) 04/02/21 03:30 MCHC 34 % (30-34) 04/02/21 03:30 RDW 15.8 % (13.2-15.2) H 04/02/21 03:30 Plt Count 166 K/mm3 (140-440) 04/02/21 03:30 Lymph % (Auto) 20.8 % (13.4-35.0) 04/02/21 03:30 [place] % (Auto) 11.1 % (0.0-7.3) H 04/02/21 03:30 Eos % (Auto) 4.4 % (0.0-4.3) H 04/02/21 03:30 Baso % (Auto) 0.4 % (0.0-1.8) 04/02/21 03:30 Lymph # (Auto) 2.1 K/mm3 (1.2-5.4) 04/02/21 03:30 [place] # (Auto) 1.1 K/mm3 (0.0-0.8) H 04/02/21 03:30 Eos # (Auto) 0.4 K/mm3 (0.0-0.4) 04/02/21 03:30 Baso # (Auto) 0.0 K/mm3 (0.0-0.1) 04/02/21 03:30 Seg Neutrophils % 63.3 % (40.0-70.0) 04/02/21 03:30 Seg Neutrophils # 6.4 K/mm3 (1.8-7.7) 04/02/21 03:30 ESR 49 mm/Hr (0-20) 03/21/21 15:02 PT 14.8 Sec. (12.2-14.9) 03/30/21 09:35 INR 1.05 (0.87-1.13) 03/30/21 09:35 APTT 29.3 Sec. (24.2-36.6) 03/30/21 09:35 Sodium 139 mmol/L (137-145) 04/02/21 03:30 Potassium 3.4 mmol/L (3.6-5.0) L 04/02/21 03:30 Chloride 100.9 mmol/L (98-107) 04/02/21 03:30 Carbon Dioxide 27 mmol/L (22-30) 04/02/21 03:30 Anion Gap 15 mmol/L 04/02/21 03:30 BUN 15 mg/dL (7-17) 04/02/21 03:30 Creatinine 0.8 mg/dL (0.6-1.2) 04/02/21 03:30 Estimated GFR > 60 ml/min 04/02/21 03:30 BUN/Creatinine Ratio 19 % 04/02/21 03:30 Glucose 99 mg/dL (65-100) 04/02/21 03:30 POC Glucose 96 mg/dL (70-105) 03/30/21 07:57 Calcium 8.7 mg/dL (8.4-10.2) 04/02/21 03:30 Magnesium 1.90 mg/dL (1.7-2.3) 03/21/21 15:02 Total Bilirubin 0.40 mg/dL (0.1-1.2) 03/22/21 05:58 AST 12 units/L (5-40) 03/22/21 05:58 ALT 6 units/L (7-56) L 03/22/21 05:58 Alkaline Phosphatase 56 units/L (35-129) 03/22/21 05:58 Total Creatine Kinase 82 units/L (30-135) 03/21/21 15:02 C-Reactive Protein 1.00 mg/dL (0.00-1.30) 03/21/21 15:02 NT-Pro-B Natriuret Pep 46.66 pg/mL (0-900) 03/21/21 15:02 Total Protein 7.5 g/dL (6.3-8.2) 03/22/21 05:58 Albumin 3.6 g/dL (3.9-5) L 03/22/21 05:58 Albumin/Globulin Ratio 0.9 % 03/22/21 05:58 TSH 1.250 mlU/mL (0.270-4.200) 03/21/21 15:02 Nasal Screen MRSA (PCR) Negative (Negative) 03/23/21 04:30 Coronavirus (PCR) Negative (Negative) 03/27/21 16:02 Blood Type O POSITIVE 03/29/21 19:00 Antibody Screen Negative 03/29/21 19:00 Chau/IV: Voiding Method Indwelling Catheter Active Medications - Current Medications Current Medications: Generic Name Dose Route Start Last Admin Trade Name Freq PRN Reason Stop Dose Admin Acetaminophen 650 mg 03/21/21 21:42 Acetaminophen 325 Mg Tab PO Q4H PRN Pain MILD(1-3)/Fever >100.5/ALEMAN Hydrocodone Bitart/Acetaminophen 1 each 03/25/21 12:47 03/31/21 04:25 Hydrocodone/Acetaminophen 5-325 Mg Tab PO 1 each Q8H PRN Administration Pain, Moderate (4-6) Baclofen 10 mg 03/25/21 14:00 04/02/21 20:45 Baclofen 10 Mg Tab PO 10 mg TID MARY Administration Famotidine 20 mg 03/23/21 10:00 04/02/21 22:50 Famotidine 20 Mg Tab PO 20 mg BID MARY Administration Gabapentin 300 mg 03/25/21 18:00 04/02/21 17:55 Gabapentin 300 Mg Cap PO 300 mg QPM MARY Administration Heparin Sodium (Porcine) 5,000 unit 03/21/21 22:00 04/02/21 22:50 Heparin 5,000 Unit/1 Ml Vial SUB-Q 5,000 unit Q12HR MARY Administration Hydralazine HCl 10 mg 03/30/21 23:51 04/01/21 02:30 Hydralazine 20 Mg/1 Ml Inj IV 04/03/21 23:50 10 mg Q4HR PRN Administration Blood Pressure Hydromorphone HCl 1 mg 03/24/21 11:00 04/03/21 03:44 Hydromorphone 1 Mg/1 Ml Inj IV 1 mg Q3H PRN Administration Pain , Severe (7-10) Sodium Chloride 1,000 mls @ 75 mls/hr 03/21/21 21:45 04/01/21 19:41 Nacl 0.9% 1000 Ml IV 75 mls/hr DIRECT MARY Administration Ketorolac Tromethamine 30 mg 04/01/21 09:28 04/03/21 05:56 Ketorolac 30 Mg/1 Ml Inj IV 04/03/21 09:27 30 mg Q8H PRN Administration Pain, Moderate (4-6) Lorazepam 1 mg 03/25/21 14:45 03/30/21 22:01 Lorazepam 2 Mg/Ml Vial IV 1 mg Q1H PRN Administration Anxiety Losartan Potassium 100 mg 03/28/21 14:00 04/02/21 09:49 Losartan 50 Mg Tab PO 100 mg QDAY MARY Administration Metoclopramide HCl 10 mg 03/21/21 21:42 Metoclopramide 10 Mg/2 Ml Inj IV Q6H PRN Nausea And Vomiting Metoprolol Succinate 25 mg 03/28/21 14:00 04/02/21 09:49 Metoprolol Succinate Xl 25 Mg Tab PO 25 mg QDAY MARY Administration Nifedipine 30 mg 03/21/21 22:00 04/02/21 22:50 Nifedipine Xl 30 Mg Tab PO 30 mg QHS MARY Administration Ondansetron HCl 4 mg 03/21/21 21:42 03/22/21 17:18 Ondansetron 4 Mg/2 Ml Inj IV 4 mg Q8H PRN Administration Nausea And Vomiting Primidone 50 mg 03/25/21 22:00 04/02/21 22:50 Primidone 50 Mg Tab PO Not Given BID MARY Promethazine HCl 25 mg 03/21/21 21:40 Promethazine 25 Mg Tab PO QID PRN Nausea Sertraline HCl 100 mg 03/22/21 10:00 04/02/21 09:50 Sertraline 100 Mg Tab PO 100 mg QDAY MARY Administration Sodium Chloride 10 ml 03/21/21 22:00 04/02/21 22:50 Sodium Chloride 0.9% 10 Ml Flush Syringe IV 10 ml BID MARY Administration Sodium Chloride 10 ml 03/21/21 21:42 04/01/21 16:57 Sodium Chloride 0.9% 10 Ml Flush Syringe IV 10 ml PRN PRN Administration LINE FLUSH Tizanidine HCl 4 mg 04/02/21 08:47 04/02/21 09:49 Tizanidine Tab 4 Mg Tab PO 4 mg Q8H PRN Administration Muscle Spasm Nutrition/Malnutrition Assess - Dietary Evaluation Nutrition/Malnutrition Findings: Nutrition Notes Start: 03/29/21 15:20 Freq: Status: Active Protocol: Document 04/02/21 12:14 [facility] (Rec: 04/02/21 12:21 [facility] [id number][facility] Nutrition Notes Initial or Follow up Reassessment Other Pertinent Diagnosis MS, severe thoracic stenosis s /p T9-T12 decompression [facility] + Ensure Enlive BID Labs/Tests K 3.4 Pertinent Medications Reviewed Height 5 ft 7 in Weight 128 kg [place] Body Weight (kg) 61.36 BMI 44.1 Weight change and time frame Wt obtained from bed scale Weight Status Morbidly Obese Subjective/Other Information Pt tolerating PO diet; appetite remains fair, but drinking the ONS. Burn Absent Trauma Absent Minimum of two criteria No Energy Intake (severe) < or equal to 50% Estimated Energy Requirement > or equal to 5 days #1 Nutrition Diagnosis Inadequate oral intake Diagnosis Progress(for reassessment Continues documentation) Is patient on ventilator? No Is Patient Ambulatory and/or Out of Bed No REE-([facility]-confined to bed) 2269.284 Kcal/Kg value to use for calculation 14 Approximate Energy Requirements Using 1792 kcal/Kg Calculation Used for Recommendations Kcal/kg Additional Notes Pro needs 0.8-1g/kg adjBW: 76- 95g/day Fluid needs 1ml/kcal Nutrition Intervention Change Diet Order: Continue current diet Add Supplement/Snack (indicate name/kcal Ensure Enlive BID (chocolate) /protein ) Provides kCal: 700 Provides Protein (gm) 40 Goal #1 PO intake of meals plus ONS to meet at least 75% energy and pro needs Follow-Up By: 04/06/21 Additional Comments F/U: intakes (meals, ONS)
--- NOTE | 2021-04-03 10:22 | Operative Report ---
DATE OF SURGERY: 03/30/2021 PREOPERATIVE DIAGNOSIS: Severe thoracic stenosis with myelopathy. POSTOPERATIVE DIAGNOSIS: Severe thoracic stenosis with myelopathy. PROCEDURE PERFORMED: T9 through T11 laminectomy for decompression of the spinal cord. SURGEON: Elian Esposito II, MD MANAGER INTEGRATED: None. ANESTHESIA: General endotracheal anesthesia. FINDINGS: Severe stenosis at T9-T10 and at T10-T11, good decompression achieved. COMPLICATIONS: None apparent. DISPOSITION: Stable, extubated to the recovery unit. BRIEF HISTORY: Micaela Cochran is a 60-year-old female that presented to [facility] on 03/21/2021 with complaints of progressive lower extremity weakness. She had experienced leg weakness over a period of 3 months. She was initially ambulating with the assistance of a rolling walker, but had recently progressed to being completely dependent on a wheelchair. She did have a ground level fall on 03/11/2021, which seemed to expedite the progression of her symptoms. MRI studies were obtained, which revealed severe stenosis from T9 to T11. Based on these findings and her clinical examination, I recommended thoracic laminectomy for decompression of the spinal cord. I reviewed all pertinent risks, benefits, and potential complications of the operation. The patient agreed to proceed. DETAILS OF THE OPERATION: The patient was taken to the operating theater by Anesthesia. She was intubated without difficulty. She was positioned prone on a Paulino frame. Please note that all pressure points were padded to prevent peripheral nerve injury. Her eyes were lubricated and taped shut to prevent corneal abrasion. The thoracic spine was prepped and draped in the usual sterile fashion. The location of the skin incision was determined with the use of AP and lateral fluoroscopy. The skin was infiltrated with 1% lidocaine with epinephrine. The incision was opened with a #10 scalpel blade. Further dissection was performed with the electrosurgical generator of Mitch Salmon. The spinous processes from T9-11 were exposed. Next, the bilateral laminae were exposed in a subperiosteal fashion. Self-retaining retractors were utilized to maintain exposure. A [place] #4 was used to confirm the desired levels. The spinous processes and posterior ligamentous complex were removed with a Le[place]ell rongeur. Next, using a 3 mm precision matchstick rey, the lamina of T9, T10 and T11 were removed. The ligamentum flavum was gently dissected to expose the dorsal epidural space. The Ligamentum flavum was removed with 3-0 and 4-0 [place] rongeurs. There was severe stenosis at T9-T10. There was good decompression achieved. On theleft side at T10-T11, there was a large overriding T10-T11 facet joint, which was causing severe lateral compression of the spinal cord. While removing this ridge of bone, there was a small violation of the dura, which resulted in leakage of cerebrospinal fluid. The defect was repaired with a dural onlay graft, which successfully occluded the defect. Next, the exposed soft tissues were irrigated copiously with saline. Vancomycin powder was sprinkled to coat the exposed soft tissues. A small drain was tunneled through the skin and secured. Finally, attention was directed to closure. The muscle and fascia were closed with 0 polyglactin synthetic absorbable suture. The dermis was closed with 2-0 polyglactin synthetic absorbable suture in an inverted fashion. The skin was reapproximated with 2-0 nylon in running continuous fashion. The incision was coated with bacitracin ointment and covered with a sterile dressing. Please note that all needle counts, sponge counts and instrument counts were correct at the end of the case x 2. The patient appeared to tolerate the operation well. She was returned to Anesthesia for extubation. There were no apparent complications. TID: [id number] RECEIPT: [id number] PRATIBHA/CON/YOLI SILVA
[2021-04-03] MEDS: BACLOFEN 10 MG TAB PO SCH ×3 (10:28→21:02)
[2021-04-03] MEDS: METOPROLOL SUCCINATE XL 25 MG TAB PO SCH (10:29)
[2021-04-03] MEDS: LOSARTAN 50 MG TAB PO SCH (10:29)
[2021-04-03] MEDS: HEPARIN 5,000 UNIT/1 ML VIAL SUB-Q SCH ×2 (10:29→21:28)
[2021-04-03] MEDS: SODIUM CHLORIDE 0.9% 1000 ML 1,000 ML IV SCH ×2 (10:30→23:32)
[2021-04-03] MEDS: FAMOTIDINE 20 MG TAB PO SCH ×2 (10:30→21:28)
[2021-04-03] MEDS: SERTRALINE 100 MG TAB PO SCH (10:30)
[2021-04-03] MEDS: PRIMIDONE 50 MG TAB PO SCH ×2 (10:30→21:27)
--- NOTE | 2021-04-03 17:17 | Progress Note ---
Assessment and Plan 60 y/o F POD4 s/p T9-11 laminectomy -drain removed -PT/OT -clear for rehab placement Subjective Date of service: 04/03/21 Principal diagnosis: Lower extremity weakness Interval history: NAEON; pt denies headaches Objective - Exam Narrative Exam: A&Ox3 CNII-XII Intact 4/5 DF/PF 2/5 hip abduction and adduction incision c/d/i w/ nylon - Vital Sign Vital Signs - 12hr 04/03/21 04/03/21 05:34 10:28 Temperature 98.4 F Pulse Rate 90 Respiratory 18 20 Rate Blood Pressure 136/67 O2 Sat by Pulse 94 Oximetry - Laboratory Findings CBC and BMP: 04/02/21 03:30 04/02/21 03:30 Abnormal Lab Findings: Abnormal Labs 03/21/21 03/21/21 03/22/21 15:02 15:02 05:58 RBC 3.60 L 3.57 L RDW 15.3 H [place] % (Auto) 7.4 H 9.0 H Eos % (Auto) [place] # (Auto) Potassium Chloride BUN Creatinine Glucose ALT 6 L Albumin 3.7 L 03/22/21 03/26/21 03/26/21 05:58 05:31 05:31 RBC 3.44 L RDW [place] % (Auto) Eos % (Auto) [place] # (Auto) Potassium Chloride BUN 35 H Creatinine 1.3 H Glucose 143 H ALT 6 L Albumin 3.6 L 03/26/21 03/27/21 03/27/21 18:37 08:55 08:55 RBC 3.58 L RDW [place] % (Auto) Eos % (Auto) [place] # (Auto) Potassium Chloride 108.8 H BUN 35 H 34 H Creatinine 1.3 H Glucose 244 H 123 H ALT Albumin 03/28/21 04/02/21 04/02/21 05:58 03:30 03:30 RBC 3.62 L RDW 15.8 H [place] % (Auto) 11.1 H Eos % (Auto) 4.4 H [place] # (Auto) 1.1 H Potassium 3.4 L Chloride 107.9 H BUN 30 H Creatinine Glucose 161 H ALT Albumin
[2021-04-03] MEDS: GABAPENTIN 300 MG CAP PO SCH (19:00)
[2021-04-03] MEDS: NIFEdipine XL 30 MG TAB PO SCH (21:27)
[2021-04-04] MEDS: HYDROmorphone 1 MG/1 ML INJ IV PRN ×6 (01:57→22:26)
[2021-04-04 06:26] LABS: Basophils % (Auto) 0.3 % (0.0-1.8); Eosinophils # (Auto) 0.4 K/mm3 (0.0-0.4); Hematocrit 32.4 % (30.3-42.9); Hemoglobin 10.9 gm/dl (10.1-14.3); Lymphocytes # (Auto) 1.8 K/mm3 (1.2-5.4); Lymphocytes % (Auto) 20.3 % (13.4-35.0); Mean Corpuscular HGB Conc 34 % (30-34); Mean Corpuscular Volume 93 fl (79-97); Monocytes # (Auto) 0.9 K/mm3 (0.0-0.8); Monocytes % (Auto) 10.1 % (0.0-7.3); Platelet Count 208 K/mm3 (140-440); Red Cell Distribution Width 16.2 % (13.2-15.2)
[2021-04-04 06:29] LABS: Blood Urea Nitrogen 10 mg/dL (7-17); Calcium 8.8 mg/dL (8.4-10.2); Hemolysis Index 3
[2021-04-04 06:35] LABS: BUN/Creatinine Ratio 14
[2021-04-04] MEDS: HEPARIN 5,000 UNIT/1 ML VIAL SUB-Q SCH ×2 (11:05→21:41)
[2021-04-04] MEDS: FAMOTIDINE 20 MG TAB PO SCH ×2 (11:06→21:41)
[2021-04-04] MEDS: METOPROLOL SUCCINATE XL 25 MG TAB PO SCH (11:06)
[2021-04-04] MEDS: LOSARTAN 50 MG TAB PO SCH (11:06)
[2021-04-04] MEDS: SERTRALINE 100 MG TAB PO SCH (11:06)
[2021-04-04] MEDS: BACLOFEN 10 MG TAB PO SCH ×3 (11:07→21:41)
[2021-04-04] MEDS: tiZANidine TAB 4 MG TAB PO PRN (11:31)
[2021-04-04] MEDS: SODIUM CHLORIDE 0.9% 1000 ML 1,000 ML IV SCH ×2 (11:32→22:33)
--- NOTE | 2021-04-04 19:07 | Progress Note ---
Assessment and Plan Assessment and plan: Micaela Cochran is a 60 y/o Female w/ history of HTN. She was admitted to [facility] last week due to progressive lower extremity weakness. She has experienced gradually progressive weakness over the past few months. In fact, she was previously ambulating with a rolling walker but has recently been using a wh eelchair. She had a ground level fall on 03/11, which seemed to expedite her progression. 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 MRI T spine obtained on 03/25 revealed severe thoracic stenosis from T9-11. She reports numbness, which extends from her waist to her toes. She denies any recent use of blood thinners. Progressive lower extremity paresis. Severe thoracic stenosis Thoracic myelopathy Hypertension Peripheral neuropathy Depression Acute kidney injury. Urinary retention 03/25/21 Patient with history of multiple sclerosis, weakness lower ext. PT has recommended Subacute Rehab. 03/26/21 Patient with history of multiple sclerosis. presented with bilateral l ower ext weakness. MRI Brain, cervical and thoracic spines done. Neurology following. PT has recommended Subacute Rehab 03/27/21 Patient with history of multiple sclerosis. presented with bilateral l ower extremity weakness. Patient is being followed by Dr. Jason, Neurology. MRI Brain unremarkable. MRI Thoracic spine shows mod-sev central canal stenosis at multiple levels, increased T2 cod signal at T9-10. Dr. Jason recommends Neurosurg eval. 03/28/2021. CT T spine without contrast to further evaluate the bony architecture. Neurosurgery plans for T9-T12 decompression on morning. Acute kidney injury resolved. Etiology may be secondary to vasomotor nephropathy versus urinary retention. Continue to follow BMP 03/29/2021. Neurosurgery plans for T9-T12 decompression for tomorrow. Acute kidney injury resolved. Continue PT/OT after surgery. 03/30/2021. Neurosurgery plans for T9-T12 decompression for today. Follow-up postoperatively 03/31/2021. Neurosurgery reports patient will be kept flat in bed for now. Continue drain to gravity. Drain with serosanguineous drainage present. Advance to regular diet. 04/01/2021. Patient is POD #2 for T9-T12 decompression. Continue per neurosurgery recommendations. 04/02/2021. POD3 s/p T9-11 decompression for severe thoracic myelopathy. Neurosurgery to continue drain to gravity today and plan for removal of drain tomorrow. PT/OT. Continue pain control 04/03/2021. Patient is POD 4 s/p T9-11 decompression for severe thoracic myelopathy. Continue surgical drain per neurosurgery. Potential removal of drain today. PT/OT. Continue pain control Hospitalist Physical - Constitutional Vitals: Temp Pulse Resp BP Pulse Ox 99.3 F 84 18 141/82 96 04/04/21 03:27 04/04/21 03:27 04/04/21 05:52 04/04/21 03:27 04/04/21 03:27 General appearance: Present: no acute distress, well-nourished Results - Labs CBC & Chem 7: 04/04/21 05:41 04/04/21 05:41 Labs: Laboratory Last Values WBC 8.8 K/mm3 (4.5-11.0) 04/04/21 05:41 RBC 3.50 M/mm3 (3.65-5.03) L 04/04/21 05:41 Hgb 10.9 gm/dl (10.1-14.3) 04/04/21 05:41 Hct 32.4 % (30.3-42.9) 04/04/21 05:41 MCV 93 fl (79-97) 04/04/21 05:41 MCH 31 pg (28-32) 04/04/21 05:41 MCHC 34 % (30-34) 04/04/21 05:41 RDW 16.2 % (13.2-15.2) H 04/04/21 05:41 Plt Count 208 K/mm3 (140-440) 04/04/21 05:41 Lymph % (Auto) 20.3 % (13.4-35.0) 04/04/21 05:41 [place] % (Auto) 10.1 % (0.0-7.3) H 04/04/21 05:41 Eos % (Auto) 5.0 % (0.0-4.3) H 04/04/21 05:41 Baso % (Auto) 0.3 % (0.0-1.8) 04/04/21 05:41 Lymph # (Auto) 1.8 K/mm3 (1.2-5.4) 04/04/21 05:41 [place] # (Auto) 0.9 K/mm3 (0.0-0.8) H 04/04/21 05:41 Eos # (Auto) 0.4 K/mm3 (0.0-0.4) 04/04/21 05:41 Baso # (Auto) 0.0 K/mm3 (0.0-0.1) 04/04/21 05:41 Seg Neutrophils % 64.3 % (40.0-70.0) 04/04/21 05:41 Seg Neutrophils # 5.6 K/mm3 (1.8-7.7) 04/04/21 05:41 ESR 49 mm/Hr (0-20) 03/21/21 15:02 PT 14.8 Sec. (12.2-14.9) 03/30/21 09:35 INR 1.05 (0.87-1.13) 03/30/21 09:35 APTT 29.3 Sec. (24.2-36.6) 03/30/21 09:35 Sodium 140 mmol/L (137-145) 04/04/21 05:41 Potassium 3.1 mmol/L (3.6-5.0) L 04/04/21 05:41 Chloride 104.0 mmol/L (98-107) 04/04/21 05:41 Carbon Dioxide 26 mmol/L (22-30) 04/04/21 05:41 Anion Gap 13 mmol/L 04/04/21 05:41 BUN 10 mg/dL (7-17) 04/04/21 05:41 Creatinine 0.7 mg/dL (0.6-1.2) 04/04/21 05:41 Estimated GFR > 60 ml/min 04/04/21 05:41 BUN/Creatinine Ratio 14 % 04/04/21 05:41 Glucose 102 mg/dL (65-100) H 04/04/21 05:41 POC Glucose 96 mg/dL (70-105) 03/30/21 07:57 Calcium 8.8 mg/dL (8.4-10.2) 04/04/21 05:41 Magnesium 1.90 mg/dL (1.7-2.3) 03/21/21 15:02 Total Bilirubin 0.40 mg/dL (0.1-1.2) 03/22/21 05:58 AST 12 units/L (5-40) 03/22/21 05:58 ALT 6 units/L (7-56) L 03/22/21 05:58 Alkaline Phosphatase 56 units/L (35-129) 03/22/21 05:58 Total Creatine Kinase 82 units/L (30-135) 03/21/21 15:02 C-Reactive Protein 1.00 mg/dL (0.00-1.30) 03/21/21 15:02 NT-Pro-B Natriuret Pep 46.66 pg/mL (0-900) 03/21/21 15:02 Total Protein 7.5 g/dL (6.3-8.2) 03/22/21 05:58 Albumin 3.6 g/dL (3.9-5) L 03/22/21 05:58 Albumin/Globulin Ratio 0.9 % 03/22/21 05:58 TSH 1.250 mlU/mL (0.270-4.200) 03/21/21 15:02 Nasal Screen MRSA (PCR) Negative (Negative) 03/23/21 04:30 Coronavirus (PCR) Negative (Negative) 03/27/21 16:02 Blood Type O POSITIVE 03/29/21 19:00 Antibody Screen Negative 03/29/21 19:00 Chau/IV: Voiding Method Indwelling Catheter Active Medications - Current Medications Current Medications: Generic Name Dose Route Start Last Admin Trade Name Freq PRN Reason Stop Dose Admin Acetaminophen 650 mg 03/21/21 21:42 Acetaminophen 325 Mg Tab PO Q4H PRN Pain MILD(1-3)/Fever >100.5/ALEMAN Hydrocodone Bitart/Acetaminophen 1 each 03/25/21 12:47 03/31/21 04:25 Hydrocodone/Acetaminophen 5-325 Mg Tab PO 1 each Q8H PRN Administration Pain, Moderate (4-6) Baclofen 10 mg 03/25/21 14:00 04/04/21 14:42 Baclofen 10 Mg Tab PO 10 mg TID MARY Administration Famotidine 20 mg 03/23/21 10:00 04/04/21 11:06 Famotidine 20 Mg Tab PO 20 mg BID MARY Administration Gabapentin 300 mg 03/25/21 18:00 04/03/21 19:00 Gabapentin 300 Mg Cap PO 300 mg QPM MARY Administration Heparin Sodium (Porcine) 5,000 unit 03/21/21 22:00 04/04/21 11:05 Heparin 5,000 Unit/1 Ml Vial SUB-Q 5,000 unit Q12HR MARY Administration Hydromorphone HCl 1 mg 03/24/21 11:00 04/04/21 14:42 Hydromorphone 1 Mg/1 Ml Inj IV 1 mg Q3H PRN Administration Pain , Severe (7-10) Sodium Chloride 1,000 mls @ 75 mls/hr 03/21/21 21:45 04/04/21 11:32 Nacl 0.9% 1000 Ml IV 75 mls/hr DIRECT MARY Administration Lorazepam 1 mg 03/25/21 14:45 03/30/21 22:01 Lorazepam 2 Mg/Ml Vial IV 1 mg Q1H PRN Administration Anxiety Losartan Potassium 100 mg 03/28/21 14:00 04/04/21 11:06 Losartan 50 Mg Tab PO 100 mg QDAY MARY Administration Metoclopramide HCl 10 mg 03/21/21 21:42 Metoclopramide 10 Mg/2 Ml Inj IV Q6H PRN Nausea And Vomiting Metoprolol Succinate 25 mg 03/28/21 14:00 04/04/21 11:06 Metoprolol Succinate Xl 25 Mg Tab PO 25 mg QDAY MARY Administration Nifedipine 30 mg 03/21/21 22:00 04/03/21 21:27 Nifedipine Xl 30 Mg Tab PO 30 mg QHS MARY Administration Ondansetron HCl 4 mg 03/21/21 21:42 03/22/21 17:18 Ondansetron 4 Mg/2 Ml Inj IV 4 mg Q8H PRN Administration Nausea And Vomiting Primidone 50 mg 03/25/21 22:00 04/03/21 21:27 Primidone 50 Mg Tab PO 50 mg BID MARY Administration Promethazine HCl 25 mg 03/21/21 21:40 Promethazine 25 Mg Tab PO QID PRN Nausea Sertraline HCl 100 mg 03/22/21 10:00 04/04/21 11:06 Sertraline 100 Mg Tab PO 100 mg QDAY MARY Administration Sodium Chloride 10 ml 03/21/21 22:00 04/04/21 14:45 Sodium Chloride 0.9% 10 Ml Flush Syringe IV 10 ml BID MARY Administration Sodium Chloride 10 ml 03/21/21 21:42 04/01/21 16:57 Sodium Chloride 0.9% 10 Ml Flush Syringe IV 10 ml PRN PRN Administration LINE FLUSH Tizanidine HCl 4 mg 04/02/21 08:47 04/04/21 11:31 Tizanidine Tab 4 Mg Tab PO 4 mg Q8H PRN Administration Muscle Spasm Nutrition/Malnutrition Assess - Dietary Evaluation Nutrition/Malnutrition Findings: Nutrition Notes Start: 03/29/21 15:20 Freq: Status: Active Protocol: [facility]02[facility]21 12[facility] 04/02/[facility] 12:21 NHALL [id number]) Nutrition Notes Initial or Follow up Reassessment Other Pertinent Diagnosis MS, severe thoracic stenosis s /p T9-T12 decompression Current Diet [facility] soft + Ensure Enlive BID Labs/Tests K 3.4 Pertinent Medications Reviewed Height 5 ft 7 in Weight 128 kg [place] Body Weight (kg) 61.36 BMI 44.1 Weight change and time frame Wt obtained from bed scale Weight Status Morbidly Obese Subjective/Other Information Pt tolerating PO diet; appetite remains fair, but drinking the ONS. Burn Absent Trauma Absent Minimum of two criteria No Energy Intake (severe) < or equal to 50% Estimated Energy Requirement > or equal to 5 days #1 Nutrition Diagnosis Inadequate oral intake Diagnosis Progress(for reassessment Continues documentation) Is patient on ventilator? No Is Patient Ambulatory and/or Out of Bed No REE-([facility]-confined to bed) 2269.284 Kcal/Kg value to use for calculation 14 Approximate Energy Requirements Using 1792 kcal/Kg Calculation Used for Recommendations Kcal/kg Additional Notes Pro needs 0.8-1g/kg adjBW: 76- 95g/day Fluid needs 1ml/kcal Nutrition Intervention Change Diet Order: Continue current diet Add Supplement/Snack (indicate name/kcal Ensure Enlive BID (chocolate) /protein ) Provides kCal: 700 Provides Protein (gm) 40 Goal #1 PO intake of meals plus ONS to meet at least 75% energy and pro needs Follow-Up By: 04/06/21 Additional Comments F/U: intakes (meals, ONS)
[2021-04-04] MEDS: GABAPENTIN 300 MG CAP PO SCH (19:10)
[2021-04-04] MEDS: PRIMIDONE 50 MG TAB PO SCH ×2 (20:04→21:41)
[2021-04-04] MEDS: NIFEdipine XL 30 MG TAB PO SCH (21:41)
[2021-04-04] MEDS: HYDROcodone/ACETAMINOPHEN 5-325 MG TAB PO PRN (21:52)
[2021-04-05] MEDS: HYDROmorphone 1 MG/1 ML INJ IV PRN ×4 (04:19→21:51)
[2021-04-05] MEDS: LORazepam 2 MG/ML VIAL IV PRN ×2 (06:55→12:05)
[2021-04-05] MEDS: HYDROcodone/ACETAMINOPHEN 5-325 MG TAB PO PRN ×2 (06:57→15:11)
[2021-04-05] MEDS: SERTRALINE 100 MG TAB PO SCH (10:48)
[2021-04-05] MEDS: METOPROLOL SUCCINATE XL 25 MG TAB PO SCH (10:49)
[2021-04-05] MEDS: PRIMIDONE 50 MG TAB PO SCH ×3 (10:49→21:39)
[2021-04-05] MEDS: BACLOFEN 10 MG TAB PO SCH ×3 (10:49→21:40)
[2021-04-05] MEDS: LOSARTAN 50 MG TAB PO SCH (10:50)
[2021-04-05] MEDS: FAMOTIDINE 20 MG TAB PO SCH ×2 (10:50→21:40)
[2021-04-05] MEDS: HEPARIN 5,000 UNIT/1 ML VIAL SUB-Q SCH ×2 (10:51→21:41)
[2021-04-05] MEDS: SODIUM CHLORIDE 0.9% 1000 ML 1,000 ML IV SCH (15:12)
--- NOTE | 2021-04-05 17:24 | Progress Note ---
Assessment and Plan 60 y/o F POD6 s/p T9-11 laminectomy -cont PT/OT -clear for rehab placement, will need suture removal POD14 -please notify if questions Subjective Date of service: 04/05/21 Principal diagnosis: Lower extremity weakness Interval history: NAEON; pt stable overnight Objective - Exam Narrative Exam: seen and examined no acute distress NC/AT A&Ox3 CNII-XII intact motor and sensory exam stable incision c/d/i dressing dry - Vital Sign Vital Signs - 12hr 04/05/21 04/05/21 04/05/21 07:38 10:49 10:50 Temperature 98.8 F Pulse Rate 89 89 89 Respiratory 26 H Rate Blood Pressure 144/91 144/91 144/91 O2 Sat by Pulse 94 Oximetry 04/05/21 14:54 Temperature Pulse Rate Respiratory Rate Blood Pressure O2 Sat by Pulse 98 Oximetry - Laboratory Findings CBC and BMP: 04/04/21 05:41 04/04/21 05:41 Abnormal Lab Findings: Abnormal Labs 03/21/21 03/21/21 03/22/21 15:02 15:02 05:58 RBC 3.60 L 3.57 L RDW 15.3 H [place] % (Auto) 7.4 H 9.0 H Eos % (Auto) [place] # (Auto) Potassium Chloride BUN Creatinine Glucose ALT 6 L Albumin 3.7 L 03/22/21 03/26/21 03/26/21 05:58 05:31 05:31 RBC 3.44 L RDW [place] % (Auto) Eos % (Auto) [place] # (Auto) Potassium Chloride BUN 35 H Creatinine 1.3 H Glucose 143 H ALT 6 L Albumin 3.6 L 03/26/21 03/27/21 03/27/21 18:37 08:55 08:55 RBC 3.58 L RDW [place] % (Auto) Eos % (Auto) [place] # (Auto) Potassium Chloride 108.8 H BUN 35 H 34 H Creatinine 1.3 H Glucose 244 H 123 H ALT Albumin 03/28/21 04/02/21 04/02/21 05:58 03:30 03:30 RBC 3.62 L RDW 15.8 H [place] % (Auto) 11.1 H Eos % (Auto) 4.4 H [place] # (Auto) 1.1 H Potassium 3.4 L Chloride 107.9 H BUN 30 H Creatinine Glucose 161 H ALT Albumin 04/04/21 04/04/21 05:41 05:41 RBC 3.50 L RDW 16.2 H [place] % (Auto) 10.1 H Eos % (Auto) 5.0 H [place] # (Auto) 0.9 H Potassium 3.1 L Chloride BUN Creatinine Glucose 102 H ALT Albumin
[2021-04-05] MEDS: GABAPENTIN 300 MG CAP PO SCH (17:35)
--- NOTE | 2021-04-05 19:32 | Progress Note ---
Hospitalist Physical - Constitutional Vitals: Temp Pulse Resp BP Pulse Ox 98.8 F 89 26 H 144/91 98 04/05/21 07:38 04/05/21 10:50 04/05/21 07:38 04/05/21 10:50 04/05/21 14:54 General appearance: Present: no acute distress, well-nourished Results - Labs CBC & Chem 7: 04/04/21 05:41 04/04/21 05:41 Labs: Laboratory Last Values WBC 8.8 K/mm3 (4.5-11.0) 04/04/21 05:41 RBC 3.50 M/mm3 (3.65-5.03) L 04/04/21 05:41 Hgb 10.9 gm/dl (10.1-14.3) 04/04/21 05:41 Hct 32.4 % (30.3-42.9) 04/04/21 05:41 MCV 93 fl (79-97) 04/04/21 05:41 MCH 31 pg (28-32) 04/04/21 05:41 MCHC 34 % (30-34) 04/04/21 05:41 RDW 16.2 % (13.2-15.2) H 04/04/21 05:41 Plt Count 208 K/mm3 (140-440) 04/04/21 05:41 Lymph % (Auto) 20.3 % (13.4-35.0) 04/04/21 05:41 [place] % (Auto) 10.1 % (0.0-7.3) H 04/04/21 05:41 Eos % (Auto) 5.0 % (0.0-4.3) H 04/04/21 05:41 Baso % (Auto) 0.3 % (0.0-1.8) 04/04/21 05:41 Lymph # (Auto) 1.8 K/mm3 (1.2-5.4) 04/04/21 05:41 [place] # (Auto) 0.9 K/mm3 (0.0-0.8) H 04/04/21 05:41 Eos # (Auto) 0.4 K/mm3 (0.0-0.4) 04/04/21 05:41 Baso # (Auto) 0.0 K/mm3 (0.0-0.1) 04/04/21 05:41 Seg Neutrophils % 64.3 % (40.0-70.0) 04/04/21 05:41 Seg Neutrophils # 5.6 K/mm3 (1.8-7.7) 04/04/21 05:41 ESR 49 mm/Hr (0-20) 03/21/21 15:02 PT 14.8 Sec. (12.2-14.9) 03/30/21 09:35 INR 1.05 (0.87-1.13) 03/30/21 09:35 APTT 29.3 Sec. (24.2-36.6) 03/30/21 09:35 Sodium 140 mmol/L (137-145) 04/04/21 05:41 Potassium 3.1 mmol/L (3.6-5.0) L 04/04/21 05:41 Chloride 104.0 mmol/L (98-107) 04/04/21 05:41 Carbon Dioxide 26 mmol/L (22-30) 04/04/21 05:41 Anion Gap 13 mmol/L 04/04/21 05:41 BUN 10 mg/dL (7-17) 04/04/21 05:41 Creatinine 0.7 mg/dL (0.6-1.2) 04/04/21 05:41 Estimated GFR > 60 ml/min 04/04/21 05:41 BUN/Creatinine Ratio 14 % 04/04/21 05:41 Glucose 102 mg/dL (65-100) H 04/04/21 05:41 POC Glucose 96 mg/dL (70-105) 03/30/21 07:57 Calcium 8.8 mg/dL (8.4-10.2) 04/04/21 05:41 Magnesium 1.90 mg/dL (1.7-2.3) 03/21/21 15:02 Total Bilirubin 0.40 mg/dL (0.1-1.2) 03/22/21 05:58 AST 12 units/L (5-40) 03/22/21 05:58 ALT 6 units/L (7-56) L 03/22/21 05:58 Alkaline Phosphatase 56 units/L (35-129) 03/22/21 05:58 Total Creatine Kinase 82 units/L (30-135) 03/21/21 15:02 C-Reactive Protein 1.00 mg/dL (0.00-1.30) 03/21/21 15:02 NT-Pro-B Natriuret Pep 46.66 pg/mL (0-900) 03/21/21 15:02 Total Protein 7.5 g/dL (6.3-8.2) 03/22/21 05:58 Albumin 3.6 g/dL (3.9-5) L 03/22/21 05:58 Albumin/Globulin Ratio 0.9 % 03/22/21 05:58 TSH 1.250 mlU/mL (0.270-4.200) 03/21/21 15:02 Nasal Screen MRSA (PCR) Negative (Negative) 03/23/21 04:30 Coronavirus (PCR) Negative (Negative) 04/04/21 Unknown Blood Type O POSITIVE 03/29/21 19:00 Antibody Screen Negative 03/29/21 19:00 Chau/IV: Voiding Method External Female Catheter Active Medications - Current Medications Current Medications: Generic Name Dose Route Start Last Admin Trade Name Freq PRN Reason Stop Dose Admin Acetaminophen 650 mg 03/21/21 21:42 Acetaminophen 325 Mg Tab PO Q4H PRN Pain MILD(1-3)/Fever >100.5/ALEMAN Hydrocodone Bitart/Acetaminophen 1 each 03/25/21 12:47 04/05/21 15:11 Hydrocodone/Acetaminophen 5-325 Mg Tab PO 1 each Q8H PRN Administration Pain, Moderate (4-6) Baclofen 10 mg 03/25/21 14:00 04/05/21 15:13 Baclofen 10 Mg Tab PO 10 mg TID MARY Administration Famotidine 20 mg 03/23/21 10:00 04/05/21 10:50 Famotidine 20 Mg Tab PO 20 mg BID MARY Administration Gabapentin 300 mg 03/25/21 18:00 04/05/21 17:35 Gabapentin 300 Mg Cap PO 300 mg QPM MARY Administration Heparin Sodium (Porcine) 5,000 unit 03/21/21 22:00 04/05/21 10:51 Heparin 5,000 Unit/1 Ml Vial SUB-Q 5,000 unit Q12HR MARY Administration Hydromorphone HCl 1 mg 03/24/21 11:00 04/05/21 17:35 Hydromorphone 1 Mg/1 Ml Inj IV 1 mg Q3H PRN Administration Pain , Severe (7-10) Sodium Chloride 1,000 mls @ 75 mls/hr 03/21/21 21:45 04/05/21 15:12 Nacl 0.9% 1000 Ml IV 75 mls/hr DIRECT MARY Administration Lorazepam 1 mg 03/25/21 14:45 04/05/21 12:05 Lorazepam 2 Mg/Ml Vial IV 1 mg Q1H PRN Administration Anxiety Losartan Potassium 100 mg 03/28/21 14:00 04/05/21 10:50 Losartan 50 Mg Tab PO 100 mg QDAY MARY Administration Metoclopramide HCl 10 mg 03/21/21 21:42 Metoclopramide 10 Mg/2 Ml Inj IV Q6H PRN Nausea And Vomiting Metoprolol Succinate 25 mg 03/28/21 14:00 04/05/21 10:49 Metoprolol Succinate Xl 25 Mg Tab PO 25 mg QDAY MARY Administration Nifedipine 30 mg 03/21/21 22:00 04/04/21 21:41 Nifedipine Xl 30 Mg Tab PO 30 mg QHS MARY Administration Ondansetron HCl 4 mg 03/21/21 21:42 03/22/21 17:18 Ondansetron 4 Mg/2 Ml Inj IV 4 mg Q8H PRN Administration Nausea And Vomiting Primidone 50 mg 03/25/21 22:00 04/05/21 10:49 Primidone 50 Mg Tab PO Not Given BID MARY Promethazine HCl 25 mg 03/21/21 21:40 Promethazine 25 Mg Tab PO QID PRN Nausea Sertraline HCl 100 mg 03/22/21 10:00 04/05/21 10:48 Sertraline 100 Mg Tab PO 100 mg QDAY MARY Administration Sodium Chloride 10 ml 03/21/21 22:00 04/05/21 11:49 Sodium Chloride 0.9% 10 Ml Flush Syringe IV Not Given BID MARY Sodium Chloride 10 ml 03/21/21 21:42 04/01/21 16:57 Sodium Chloride 0.9% 10 Ml Flush Syringe IV 10 ml PRN PRN Administration LINE FLUSH Tizanidine HCl 4 mg 04/02/21 08:47 04/04/21 11:31 Tizanidine Tab 4 Mg Tab PO 4 mg Q8H PRN Administration Muscle Spasm Nutrition/Malnutrition Assess - Dietary Evaluation Nutrition/Malnutrition Findings: Nutrition Notes Start: 03/29/21 15:20 Freq: Status: Active Protocol: Document 04/02/21 12:14 [place] (Rec: 04/02/21 12:21 MAN[place] [id number]) Nutrition Notes Initial or Follow up Reassessment Other Pertinent Diagnosis MS, severe thoracic stenosis s /p T9-T12 decompression Current Diet Mech soft + Ensure Enlive BID Labs/Tests K 3.4 Pertinent Medications Reviewed Height 5 ft 7 in Weight 128 kg [place] Body Weight (kg) 61.36 BMI 44.1 Weight change and time frame Wt obtained from bed scale Weight Status Morbidly Obese Subjective/Other Information Pt tolerating PO diet; appetite remains fair, but drinking the ONS. Burn Absent Trauma Absent Minimum of two criteria No Energy Intake (severe) < or equal to 50% Estimated Energy Requirement > or equal to 5 days #1 Nutrition Diagnosis Inadequate oral intake Diagnosis Progress(for reassessment Continues documentation) Is patient on ventilator? No Is Patient Ambulatory and/or Out of Bed No REE-([facility]confined to bed) 2269.284 Kcal/Kg value to use for calculation 14 Approximate Energy Requirements Using 1792 kcal/Kg Calculation Used for Recommendations Kcal/kg Additional Notes Pro needs 0.8-1g/kg adjBW: 76- 95g/day Fluid needs 1ml/kcal Nutrition Intervention Change Diet Order: Continue current diet Add Supplement/Snack (indicate name/kcal Ensure Enlive BID (chocolate) /protein ) Provides kCal: 700 Provides Protein (gm) 40 Goal #1 PO intake of meals plus ONS to meet at least 75% energy and pro needs Follow-Up By: 04/06/21 Additional Comments F/U: intakes (meals, ONS)
[2021-04-05] MEDS: NIFEdipine XL 30 MG TAB PO SCH (21:39)
[2021-04-06] MEDS: HYDROcodone/ACETAMINOPHEN 5-325 MG TAB PO PRN ×2 (00:11→11:26)
[2021-04-06] MEDS: SODIUM CHLORIDE 0.9% 1000 ML 1,000 ML IV SCH (00:12)
[2021-04-06] MEDS: HYDROmorphone 1 MG/1 ML INJ IV PRN ×3 (01:52→09:27)
[2021-04-06] MEDS: tiZANidine TAB 4 MG TAB PO PRN (06:53)
[2021-04-06] MEDS: METOPROLOL SUCCINATE XL 25 MG TAB PO SCH (09:28)
[2021-04-06] MEDS: LOSARTAN 50 MG TAB PO SCH (09:29)
[2021-04-06] MEDS: FAMOTIDINE 20 MG TAB PO SCH (09:29)
[2021-04-06] MEDS: SERTRALINE 100 MG TAB PO SCH (09:29)
[2021-04-06] MEDS: BACLOFEN 10 MG TAB PO SCH ×3 (09:29→19:31)
[2021-04-06] MEDS: HEPARIN 5,000 UNIT/1 ML VIAL SUB-Q SCH (09:29)
[2021-04-06] MEDS: PRIMIDONE 50 MG TAB PO SCH (09:38)
[2021-04-06 09:55] LABS: Alanine Aminotransferase 10 units/L (7-56); Blood Urea Nitrogen 5 mg/dL (7-17); Calcium 8.4 mg/dL (8.4-10.2); Hemolysis Index 6
[2021-04-06 09:59] LABS: Basophils % (Auto) 0.3 % (0.0-1.8); Eosinophils # (Auto) 0.3 K/mm3 (0.0-0.4); Eosinophils % (Auto) 4.8 % (0.0-4.3); Hematocrit 33.2 % (30.3-42.9); Hemoglobin 10.6 gm/dl (10.1-14.3); Lymphocytes # (Auto) 1.3 K/mm3 (1.2-5.4); Lymphocytes % (Auto) 18.7 % (13.4-35.0); Mean Corpuscular HGB Conc 32 % (30-34); Mean Corpuscular Volume 91 fl (79-97); Monocytes # (Auto) 0.5 K/mm3 (0.0-0.8); Monocytes % (Auto) 7.7 % (0.0-7.3); Platelet Count 230 K/mm3 (140-440); Red Blood Count 3.64 M/mm3 (3.65-5.03)
--- NOTE | 2021-04-06 10:11 | Discharge Summary ---
Providers - Providers Date of Admission: 03/22/21 14:51 Attending physician: HONG TAI MD 03/21/21 21:42 Consult to Physician [CONS] Routine Comment: Consulting Provider: ENEIDA NICOLE Physician Instructions: Reason For Exam: Multiple sclerosis exacerbation 03/21/21 21:50 Physical Therapy Evaluation and Treat [CONS] Routine Comment: Reason For Exam: Multiple sclerosis flare with lower extremity weak 03/27/21 09:42 Consult to Physician [CONS] Routine Comment: Consulting Provider: TRACI SEQUEIRA II Physician Instructions: Reason For Exam: Bilat leg weakness, spinal cord stenosis 03/27/21 16:02 Occupational Therapy Evaluate and Treat [CONS] Urgent Comment: Reason For Exam: OT to eval and treat Primary care physician: PATRIA FLORES MD Hospitalization Condition: Fair Disposition: [facility]PAT[facility]AC[facility] Exam - Constitutional Vitals: Temp Pulse Resp BP Pulse Ox 98.9 F 81 20 137/70 96 04/06/21 07:56 04/06/21 09:29 04/06/21 07:56 04/06/21 09:29 04/06/21 07:56 Plan Activity: advance as tolerated Diet: low fat, low salt Wound: per your surgeon's advice Additional Instructions: Surgical wound sutures need to be removed on postoperative day #14. Follow-up with neurosurgery in 1 to 2 weeks Follow up with: PATRIA FLORES MD [Primary Care Provider] - 3-5 Days
[2021-04-06 10:22] LABS: BUN/Creatinine Ratio 7
[2021-04-06] MEDS ORDERED: POTASSIUM CHLORIDE ER 20 MEQ TAB PO NR (11:30)
[2021-04-06] MEDS ORDERED: LORazepam 0.5 MG TAB PO PRN (11:30)
[2021-04-06] MEDS ORDERED: POTASSIUM CHLORIDE 10 MEQ 10 MEQ/100 ML BAG IV SCH (12:00)
[2021-04-06] MEDS ORDERED: MAGNESIUM SULFATE 2 GM/50 ML BAG IV ONE (12:00)
[2021-04-06 12:08] VITALS: BP 110/64
--- NOTE | 2021-04-06 13:55 | Progress Note ---
Assessment and Plan 60 y/o F s/p T9-11 laminectomy -clear for rehab placement -will need suture removal POD14 -will arrange for outpatient follow up Subjective Date of service: 04/06/21 Principal diagnosis: Lower extremity weakness Interval history: NAEON; pt denies pain or acute distress Objective - Exam Narrative Exam: seen and examined NAD A&Ox3 CNII-XII intact motor and sensory exam stable incision c/d/i, dressing dry - Vital Sign Vital Signs - 12hr 04/06/21 04/06/21 04/06/21 03:25 07:56 09:28 Temperature 99.2 F 98.9 F Pulse Rate 93 H 81 81 Respiratory 18 20 Rate Blood Pressure 138/71 137/70 137/70 O2 Sat by Pulse 95 96 Oximetry 04/06/21 04/06/21 04/06/21 09:29 11:03 11:15 Temperature 99.9 F H Pulse Rate 81 76 Respiratory 18 Rate Blood Pressure 137/70 110/64 O2 Sat by Pulse 96 98 Oximetry - Laboratory Findings CBC and BMP: 04/06/21 09:17 04/06/21 09:17 Abnormal Lab Findings: Abnormal Labs 03/21/21 03/21/21 03/22/21 15:02 15:02 05:58 RBC 3.60 L 3.57 L RDW 15.3 H [place] % (Auto) 7.4 H 9.0 H Eos % (Auto) [place] # (Auto) Potassium Chloride BUN Creatinine Glucose Magnesium ALT 6 L Total Protein Albumin 3.7 L 03/22/21 03/26/21 03/26/21 05:58 05:31 05:31 RBC 3.44 L RDW [place] % (Auto) Eos % (Auto) [place] # (Auto) Potassium Chloride BUN 35 H Creatinine 1.3 H Glucose 143 H Magnesium ALT 6 L Total Protein Albumin 3.6 L 03/26/21 03/27/21 03/27/21 18:37 08:55 08:55 RBC 3.58 L RDW [place] % (Auto) Eos % (Auto) [place] # (Auto) Potassium Chloride 108.8 H BUN 35 H 34 H Creatinine 1.3 H Glucose 244 H 123 H Magnesium ALT Total Protein Albumin 03/28/21 04/02/21 04/02/21 05:58 03:30 03:30 RBC 3.62 L RDW 15.8 H [place] % (Auto) 11.1 H Eos % (Auto) 4.4 H [place] # (Auto) 1.1 H Potassium 3.4 L Chloride 107.9 H BUN 30 H Creatinine Glucose 161 H Magnesium ALT Total Protein Albumin 04/04/21 04/04/21 04/06/21 05:41 05:41 09:17 RBC 3.50 L 3.64 L RDW 16.2 H 16.0 H [place] % (Auto) 10.1 H 7.7 H Eos % (Auto) 5.0 H 4.8 H [place] # (Auto) 0.9 H Potassium 3.1 L Chloride BUN Creatinine Glucose 102 H Magnesium ALT Total Protein Albumin 04/06/21 09:17 RBC RDW [place] % (Auto) Eos % (Auto) [place] # (Auto) Potassium 3.2 L Chloride 107.3 H BUN 5 L Creatinine Glucose 111 H Magnesium 1.60 L ALT Total Protein 6.0 L Albumin 3.0 L
[2021-04-06] MEDS ORDERED: oxyCODONE /ACETAMINOPHEN 5-325MG TAB PO PRN (14:00)
[2021-04-06] MEDS ORDERED: PREGABALIN 75 MG CAP PO SCH (22:00)
== END 2021-04-06 21:15 | DRG 518 ==
LOC: ED 11:51 → 3A 19:23 → 4A 21:53 → OBSVTOIN 03-22 14:51 → 4A 03-22 20:04
PROVIDERS: ADMIT Internal Medicine; ATTEND Internal Medicine
PROC: 01N Peripheral Nervous System, Release (ICD-10-PCS; principal; 2021-03-30)
PROC: 00UT0KZ Supplement Spinal Meninges with Nonautologous Tissue Substitute, Open Approach (ICD-10-PCS; 2021-03-30)
DX: M48.04 Spinal stenosis, thoracic region (principal); N17.0 Acute kidney failure with tubular necrosis; G82.20 Paraplegia, unspecified; Z68.41 Body mass index [BMI] 40.0-44.9, adult; G99.2 Myelopathy in diseases classified elsewhere; N17.9 Acute kidney failure, unspecified; G97.41 Accidental puncture or laceration of dura during a procedure; F32.A Depression, unspecified; G62.9 Polyneuropathy, unspecified; Z20.822 Contact with and (suspected) exposure to COVID-19; I10 Essential (primary) hypertension; Z90.710 Acquired absence of both cervix and uterus; Z90.49 Acquired absence of other specified parts of digestive tract; E66.01 Morbid (severe) obesity due to excess calories; R33.9 Retention of urine, unspecified; K59.00 Constipation, unspecified; Y83.8 Other surgical procedures as the cause of abnormal reaction of the patient, or of later complication, without mention of misadventure at the time of the procedure
CPT/HCPCS: 36415; 70553; 72070; 72128; 72156; 72157; 72158; 80048; 80053; 82550; 82962; 83735; 83880; 84443; 85025; 85027; 85610; 85652; 85730; 86140; 86850; 86900; 86901; 87641; 93005; G0378; A9575; J0330; J0360; J0690; J1100; J1170; J1644; J1885; J2060; J2250; J2270; J2370; J2405; J2704; J2710; J2930; J3370; J3475; J3490; J7030; J7050; J7120; U0003